=== PATIENT | female | born 1935 | race Caucasian/White ===

== ENCOUNTER 2016-04-07 20:39 | Inpatient (IN) ==
[2016-04-08] MEDS ORDERED: Pantoprazole 40 MG VIAL IVP STA (00:17)
[2016-04-08] MEDS ORDERED: Nitroglycerin 0.4 MG TAB.SUBL SL PRN (00:17)
[2016-04-08] MEDS ORDERED: *HR* Dextrose 50 % in Water (Syg) 50 ML SYRINGE IVP PRN (00:17)
[2016-04-08] MEDS ORDERED: Albuterol 2.5 MG/3 ML NEBULIZER IH PRN (00:17)
[2016-04-08] MEDS ORDERED: *HR* Metoprolol 5 MG/5 ML VIAL IVP PRN (00:17)
[2016-04-08] MEDS ORDERED: Ondansetron 4 MG/2 ML VIAL IVP PRN (00:17)
[2016-04-08] MEDS ORDERED: D5% in Water 1,000 ML IV PRN (00:17)
[2016-04-08] MEDS ORDERED: Acetaminophen 325 MG TABLET PO PRN (00:17)
[2016-04-08] MEDS ORDERED: *HR* OxyCODONE Immed Rel 5 MG TABLET PO PRN (00:17)
[2016-04-08] MEDS ORDERED: *HR* Morphine 2 MG/ML SYRINGE IVP PRN (00:17)
[2016-04-08] MEDS ORDERED: Naloxone 0.4 MG/ML INJ IVP PRN (00:17)
[2016-04-08] MEDS ORDERED: Dextrose Gel 15 GM PO PRN ×2 (00:17)
[2016-04-08] MEDS ORDERED: *HR* Enoxaparin 60 MG/0.6 ML SYRINGE SQ SCH (00:30)
--- NOTE | 2016-04-08 00:39 | Internal Med History&Physical ---
Date of Encounter: 04/07/16 Time of Encounter: 23:45 Assessment and Plan (1) Chest pain, rule out acute myocardial infarction Current visit: Yes Status: Acute . (2) Chest pain with moderate risk of acute coronary syndrome Current visit: Yes Status: Acute . (3) CAD (coronary artery disease), [place] coronary artery Current visit: Yes Status: Acute . Qualifiers: [place] vs. transplanted heart: [place] heart Associated angina: with unspecified angina Qualified Code(s): I25.119 - Atherosclerotic heart disease of [place] coronary artery with unspecified angina pectoris (4) Hx of CABG Current visit: Yes Status: Chronic . (5) History of PTCA Current visit: Yes Status: Chronic . (6) PAD (peripheral artery disease) Current visit: Yes Status: Chronic . (7) History of arterial bypass of lower extremity Current visit: Yes Status: Chronic . (8) Non-ST elevation myocardial infarction (NSTEMI) due to mismatch of myocardial oxygen supply and demand Current visit: Yes Status: Acute . (9) Obesity (BMI 30-39.9) Current visit: Yes Status: Chronic . (10) At risk for activity intolerance Current visit: Yes Status: Acute . (11) At risk for acute confusion Current visit: Yes Status: Acute . (12) At risk for acute ischemic cardiac event Current visit: Yes Status: Acute . Internal Medicine - H&P: HPI Chief complaint: Chest pain. Admitted From: Hospital to Hospital Transfer (Transfer from [facility]) Plans for Post Hospital Care: Home History of present illness: Ms. Cormier is a 81 year old female with medical history significant for CAD/ PTCAstents/CABG/AMIx3, PAD/LE PCI-stents/LE bilateral fem/pop bypass, hypertension, dyslipidemia, Polymyalgia Rheumatica, osteoarthritis, osteoporosis , RLS, chr MSK pain, GERD/dysphagia/esoph dysmotility, , type II DM, peripheral polyneuropathy, CKD III-IV/hydronephrosis, secondary hyperparathyroidism, H/O RCC s/p nephrectomy, anemia of chr dis, COPD/RAD, obesity, former smoker( 30pk- yrs). The patient was visited and interviewed and examined. Patient is received as a hospital to hospital transfer from [facility] to the [facility] indication with the reports of acute chest pain syndrome with findings suggestive of non-ST elevation myocardial infarction. Patient presented with chest pain of intermittent quality with associated dyspnea in the evening of admission. S pain was localized to the left posterior greater than left anterior chest with onset approximately 2 hours prior to emergency room presentation. Denied diaphoresis, syncopal or presyncopal complaints. Denied abdominal pain nausea vomiting and flank pain and neck pain or rash. he rated pain at the time of onset as a 9-10/severity. This gradually decreased leading up to her emergency room arrival at a 5-6/10 severity, retrosternal heaviness without radiation. Denied respiratory variation to symptoms. Onset occurred while at rest. However modest activity exacerbated chest pain. Denied any dietary medication or recreational indiscretions. The onset of symptoms was very reminiscent of prior history of acute myocardial infarctions. History is noteworthy for his atherosclerotic cardiovascular disease as well as family history for heart disease. She is a nonsmoker. She received 2 sublingual nitroglycerin in succession plus 324mg aspirin gradually resolving chest pain 0-1/10 severity. Patient declined additional sublingual nitroglycerin due to induced headache. Return of elevated troponin measure patient received therapeutic Lovenox injection prior to transfer. Findings in the ED: Temperature 98.2 pulse 54-65 BP 108-168/62-91. O2 saturation 93-98% room air. Troponin 0.06 and 0.08. CPK 36. CK-MB 2.1. WBC 9.9 hemoglobin 12.3 platelets 303,000. Differential normal. Metabolic panel chloride 98 glucose 167. BUN 29 creatinine 1.65. GFR 32. Hepatic function normal. Albumin 4.3 total 6.8. Portable chest x-ray demonstrated no active cardiopulmonary findings. Subsegmental atelectasis in the lung bases. No focal consolidation pleural effusion or pneumothorax. Significant atherosclerotic changes of the thoracic aorta. Vessels without obvious vascular congestion. EKG sinus rhythm. Premature Atrial complexes. Rate 60 bpm. Left axis deviation. Moderate voltage criteria for LVH. ST abnormalities inferior and lateral leads with T-wave inversion V3 to V4 V5 and V6. Rule out age-indeterminate inferior/ anterolateral wall ischemia. EKG of January 2016 demonstrates similar morphology but less severe ST and T wave acute abnormalities. Preliminary impression suggests acute chest pain syndrome with typical and atypical features in a patient with known significant vasculopathy and multiple major risk factors for CAD. Initial screening studies compatible with acute coronary syndrome, non-ST elevation myocardial infarction inpatient at increased risk for acute coronary event. Associated stage III acute on chronic kidney disease smallest electrolyte derangements noted. No obvious x-ray findings were acute pulmonary edema or infiltrate. Electrocardiogram suggests ischemia in the inferior and anterolateral ochoa. She presents risk for acute clinical decline immobility given his presenting symptoms complaints, clinical findings advanced age and comorbidities. Workup and treatment will progress comprehensively. Cumulative laboratory and radiographic data base was reviewed, considered and discussed. Pertinent ancillary medical records including ECW and PCI documentation was reviewed and considered. Given the patient's presenting concerns, past medical history, clinical findings and symptoms, she is admitted at this time will undergo further evaluation and disposition. Orders were written as per the computerized physician tape recorder repairer system.......................................................................... .................... Consultative opinions will be sought as clinical circumstances justify. Pain management needs will be addressed. Laboratory and radiographic data base will be updated as appropriate. Studies include: UA, PT,INR,APTT, Ddimer, CPK, cardiac injury panel, BNP, metabolic and hematologic panel, magnesium, phosphorus, ion calcium, thyroid panel, lipid profile, A1c, C-peptide, CRP sed rate, blood gas, lactic acid, serologies, etc. Precautions: Aspiration, fall, delirium protocol/surveillance initiated. Telemetry with continuous hemodynamic monitoring and pulse oximetry initiated. Orthostatic vital signs. Empiric antibiotic coverage: pending diagnostics/culture data. Special studies: CT chest, chest x-ray, telemetry, EKG, echocardiogram, US retroperitoneum. Pulmonary toilet: Incentive spirometry. Aerosol bronchodilator, mucolytic, antitussivePRN. Supplemental oxygen. Corticosteroid therapyPRN. CPAP/BiPAP supplemental oxygen deliveryPRN. Aerosol Mucomyst therapyPRN. Fluid and electrolyte repletion efforts will proceed. Careful attention to fluid balance and renal recovery will be emphasized. Avoidance of nephrotoxic exposure and adverse drug drug interaction in the setting of impaired renal function will be monitored closely. Acute coronary syndrome protocol/surveillance initiated. Including: Aspirin statin ARB beta anel. Nitrates PRN. Subcutaneous therapeutic Lovenox. Morphine PRN. DVT and PUD prophylaxis initiated: PPI therapy, intermittent pneumatic cuffs/ TEDs. Subq Lovenox. Early ambulation will be encouraged. Immunization updates recommended. Influenza and pneumococcal vaccinations as part of ongoing preventative healthcare recommendations strongly recommended. Smoking cessation counseling briefly addressed. Patient is a former smoker. Advanced care directive discussion briefly addressed. Patient does not declare any healthcare restrictions at this time. Cardiovascular risk appraisal and cardiovascular risk reduction efforts will be emphasized. Physical /occupational therapy may be considered to evaluate patient's functional capacity and progress mobility if her circumstances permit. Sliding scale insulin coverage, ADA dietary restraint and schedule an as-needed basis fingerstick glucose assessments were initiated. Nutrition/diabetes education counseling may be considered as circumstances justify. Outpatient medication schedules will be reviewed, confirmed and facilitated as appropriate. Reconciliation of home treatments including adjustments, substitutions and reintroduction into the treatment regimen will address necessary maintenance therapies for chronic pre-existing medical conditions. Plan of care has been reviewed and discussed in detail with the patient. Questions addressed. Hospital course dictated by clinical findings, treatment response and potential consultative interventions. Patient is at risk for further acute clinical decline and morbidity due to her advanced age, presenting chief complaints, findings and comorbid conditions. Condition is serious. Prognosis is guarded. CODE STATUS is full. Past Med Surg Social Fam HX - Past Medical History Source: old records reviewed Medical history: arthritis, asthma, cancer (History of renal cell carcinoma status post left nephrectomy-left adrenalectomy), COPD, coronary artery disease , diabetes, GERD, hyperlipidemia, hypertension, myocardial infarction (x3.), RA (Polymyalgia rheumatica), renal disease (CKD. Hydronephrosis.), TIA, venous stasis, other (Restless leg syndrome. Peripheral polyneuropathy.) Psychiatric history: no psych history - Past Surgical History Surgical History: angioplasty/stent, appendectomy, cancer surgery (Left nephrectomy-left adrenalectomy for renal cell carcinoma.), cholecystectomy, coronary bypass (CABG), herniorrhaphy (Hernia repair), hysterectomy, orthopedic , other (Back surgery.), GIBSON/BSO, other (Bladder suspension surgery.), vascular surgery, LE bypass (Bilateral femoral-popliteal bypass surgery.), LE stent (s), LE vascular intervention, arthroscopy - Social History Smoking Status: Former smoker (30 pack year smoking history abstinent times many years.) Alcohol use: none Drug use: none Occupational status: retired Current living situation: With Family Activity Level: Independent ambulation, Uses cane/walker, Mostly sedentary Recent Out of Country Travel Within the Last 8 Weeks: No Exposure or Possible Exposure to Illness During Travel: No - Family History Mother Living Status: Cause of : cancer Sister Cause of : cancer Internal Medicine - H&P: Meds Aspirin 81 mg PO DAILY 04/08/16 [History] Calcitriol 0.5 mcg PO DAILY 04/08/16 [History] Fluvastatin Sodium [Lescol] 40 mg PO HS 04/08/16 [History] Furosemide [Lasix] 20 mg PO DAILY 04/08/16 [History] Gabapentin [Neurontin] 100 mg PO BID 04/08/16 [History] Glimepiride [Amaryl] 1 mg PO QAM 04/08/16 [History] HYDROcodone/Acet 5/325 mg 5 - 325 mg PO BID 04/08/16 [History] Insulin Glargine,Hum.rec.anlog [Lantus Solostar] 20 units SQ DAILY 04/08/16 [ History] Losartan Potassium 25 mg PO DAILY 04/08/16 [History] Metoprolol Succinate 25 mg PO DAILY 04/08/16 [History] Nifedipine ER 60 mg PO DAILY 04/08/16 [History] PredniSONE [Prednisone] 5 mg PO DAILY 04/08/16 [History] Vitamin D3 500 unit PO DAILY 04/08/16 [History] Allergies lisinopril Allergy (Unverified 04/07/16 23:47) Diarrhea pioglitazone Allergy (Verified 04/07/16 23:48) See Comments LE edema All Systems PM: A 10-system review of systems was performed and is negative for pertinent findings except as documented above in the HPI. - Constitutional Constitutional: as per HPI, malaise, no chills, no fever(s), no night sweats - EENT Eyes: as per HPI, no change in vision, no discharge, no pain, no photophobia Ears: as per HPI, no ear discharge, no ear pain, no tinnitus Nose, mouth and throat: as per HPI, no dysphagia, no nasal discharge, no neck pain, no sore throat - Cardiovascular Cardiovascular ROS IM: as per HPI, chest pain, dyspnea, no diaphoresis, no edema , no lightheadedness, no palpitations, no syncope - Respiratory Respiratory: as per HPI, no cough, no dyspnea, no hemoptysis, no wheezing, no pain on inspiration, no chest congestion, no excessive phlegm production, no pain with cough - Gastrointestinal Gastrointestinal: as per HPI, no abdominal pain, no diarrhea, no hematemesis, no hematochezia, no melena, no nausea, no vomiting - Genitourinary Genitourinary: as per HPI, no change in urinary stream, no dysuria, no flank pain, no hematuria - Musculoskeletal Musculoskeletal ROS IM: as per HPI, no numbness, no tingling - Integumentary Integumentary IM: as per HPI, no rash, no unusual bruising - Neurological Neurological ROS: as per HPI, no confusion, no convulsions, no focal weakness, no numbness, no tingling, no tremor(s) - Psychiatric Psychiatric: as per HPI - Endocrine Endocrine IM: as per HPI - Hematologic/Lymphatic Hematologic/Lymphatic: as per HPI, no easy bruising - Allergic/Immunologic Allergic/Immunologic: as per HPI - Constitutional Vitals: Temp Pulse Resp BP Pulse Ox 97.8 F 52 20 175/78 98 04/07/16 22:55 04/07/16 22:55 04/07/16 22:55 04/07/16 22:55 04/07/16 22:55 General appearance: Present: cooperative, mild distress, A&O X 3, pleasant, obese, answers questions appropriately - Head Head exam: Present: atraumatic, normocephalic - Eye Eye exam: Present: EOMI, PERRL, conjuntiva pink, sclera anicteric Pupils: Present: normal accommodation, PERRL - ENT ENT exam: Present: mucous membranes moist, normal oropharynx - Neck Neck exam general surgery: Present: full ROM, supple, trachea midline. Absent: lymphadenopathy - Respiratory Respiratory exam: Present: decreased breath sounds, CTAB. Absent: accessory muscle use, rales, rhonchi, wheezes - Cardiovascular Cardiovascular exam: Present: distant heart sounds, RRR, +S1, +S2. Absent: diastolic murmur, gallop, rubs, systolic murmur - GI/Abdominal GI/Abdominal exam: Present: normal bowel sounds, soft, no peritoneal signs. Absent: distended, tenderness - Extremities Exam Extremities exam: Present: full ROM, warm, radial pulses palpable and symetrical. Absent: calf tenderness, cyanotic, pedal edema - Neurological Exam Neurological exam: Present: alert, CN II-XII intact, oriented X3, no focal deficits. Absent: pronater drift, facial droop, speech deficit - Psychiatric Psychiatric exam: Present: normal affect, normal mood - Skin Skin exam: Present: dry, intact, warm Internal Med - H&P Results - Labs CBC & Chem 7: 04/08/16 01:05 04/08/16 01:05 Labs: Vital Signs Temp Pulse Resp BP Pulse Ox 04/07/16 22:55 97.8 F 52 20 175/78 98 Intake and Output 04/07/16 04/07/16 04/08/16 15:59 23:59 07:59 Intake Total 0 / 0 Output Total 0 / 0 Balance 0 / 0 Intake: Oral 0 / 0 Output: Urine 0 / 0 Vital Signs Temp Pulse Resp BP Pulse Ox 04/07/16 22:55 97.8 F 52 20 175/78 98 Intake and Output 04/07/16 04/07/16 04/08/16 15:59 23:59 07:59 Intake Total 0 / 0 Output Total 0 / 0 Balance 0 / 0 Intake: Oral 0 / 0 Output: Urine 0 / 0 Other: Weight 69.6 kg Patient Weight 04/08/16 23:59 Weight 69.6 kg - Impressions Abnormal lab results RBC 3.79 M/mcL (3.82-4.97) L 04/08/16 01:05 Hct 34.3 % (35.3-44.9) L 04/08/16 01:05 D-Dimer 1114 ng/mLFEU (0-500) H 04/08/16 01:05 Potassium 3.4 mEq/L (3.5-4.5) L 04/08/16 01:05 BUN 27 mg/dL (7-20) H 04/08/16 01:05 Creatinine 1.54 mg/dL (0.57-1.11) H 04/08/16 01:05 Est GFR ( Amer) 39 (> 60) L 04/08/16 01:05 Est GFR (Non-Af Amer) 32 (> 60) L 04/08/16 01:05 Hemoglobin A1c 6.1 % (-5.6) H 04/08/16 01:05 Troponin I 0.14 ng/mL (0-0.03) H* 04/08/16 01:05 Albumin 3.4 g/dL (3.5-5.0) L 04/08/16 01:05 Triglycerides 223 mg/dL (< 150) H 04/08/16 01:05 Cholesterol 209 mg/dL (< 200) H 04/08/16 01:05 LDL Cholesterol, Calc 126 mg/dL (0-99) H 04/08/16 01:05 VLDL Cholesterol, Calc 45 mg/dL (< 31) H 04/08/16 01:05 HDL Cholesterol 38 mg/dL (40-59) L 04/08/16 01:05 Cholesterol/HDL Ratio 5.5 (0-4.9) H 04/08/16 01:05 Laboratory Results WBC 8.1 K/mcL (4.3-11.1) 04/08/16 01:05 RBC 3.79 M/mcL (3.82-4.97) L 04/08/16 01:05 Hgb 11.6 g/dL (11.5-15.4) 04/08/16 01:05 Hct 34.3 % (35.3-44.9) L 04/08/16 01:05 MCV 90.5 fL (83.0-100.0) 04/08/16 01:05 MCH 30.6 pg (28.0-33.3) 04/08/16 01:05 MCHC 33.8 g/dL (31.6-35.5) 04/08/16 01:05 RDW 13.7 % (11.5-14.5) 04/08/16 01:05 Plt Count 269 K/mcL (140-400) 04/08/16 01:05 MPV 9.6 fL (9.4-12.4) 04/08/16 01:05 Immature Gran % 0.5 % (0-4) 04/08/16 01:05 Seg Neutrophils % 51.0 % 04/08/16 01:05 Lymphocytes % 35.2 % 04/08/16 01:05 Monocytes % 11.1 % 04/08/16 01:05 Eosinophils % 1.7 % 04/08/16 01:05 Basophils % 0.5 % 04/08/16 01:05 Neutrophils # 4.2 K/mcL (1.6-8.9) 04/08/16 01:05 Lymphocytes # 2.9 K/mcL (0.6-4.6) 04/08/16 01:05 Monocytes # 0.9 K/mcL (0.0-1.3) 04/08/16 01:05 Eosinophils # 0.1 K/mcL (0.0-0.6) 04/08/16 01:05 Basophils # 0.0 K/mcL (0.0-0.2) 04/08/16 01:05 PT 11.7 Seconds (9.4-12.1) 04/08/16 01:05 INR 1.1 04/08/16 01:05 APTT 32.6 Seconds (26.0-36.0) 04/08/16 01:05 D-Dimer 1114 ng/mLFEU (0-500) H 04/08/16 01:05 VBG Ionized Calcium 1.29 mmol/L (1.15-1.35) 04/08/16 01:05 Sodium 140 mEq/L (136-145) 04/08/16 01:05 Potassium 3.4 mEq/L (3.5-4.5) L 04/08/16 01:05 Chloride 105 mEq/L (98-109) 04/08/16 01:05 Carbon Dioxide 24 mEq/L (19-29) 04/08/16 01:05 BUN 27 mg/dL (7-20) H 04/08/16 01:05 Creatinine 1.54 mg/dL (0.57-1.11) H 04/08/16 01:05 Est GFR ( Amer) 39 (> 60) L 04/08/16 01:05 Est GFR (Non-Af Amer) 32 (> 60) L 04/08/16 01:05 BUN/Creatinine Ratio 18 (6-26) 04/08/16 01:05 Glucose 86 mg/dL (70-99) 04/08/16 01:05 Est Mean Plasma Glucose 128 mg/dl 04/08/16 01:05 Hemoglobin A1c 6.1 % (-5.6) H 04/08/16 01:05 Calculated Osmolality 294 (280-300) 04/08/16 01:05 Calcium 10.1 mg/dL (8.6-10.8) 04/08/16 01:05 Phosphorus 2.5 mg/dL (2.3-4.7) 04/08/16 01:05 Magnesium 1.8 mg/dL (1.6-2.6) 04/08/16 01:05 Total Bilirubin 0.5 mg/dL (0.2-1.2) 04/08/16 01:05 AST 12 Units/L (5-34) 04/08/16 01:05 ALT 10 Units/L (0-55) 04/08/16 01:05 Alkaline Phosphatase 51 Units/L (38-126) 04/08/16 01:05 Troponin I 0.14 ng/mL (0-0.03) H* 04/08/16 01:05 C-Reactive Protein 3 mg/L (Less than 5) 04/08/16 01:05 B-Natriuretic Peptide 73 pg/mL (0-100) 04/08/16 01:05 Serum Total Protein 6.4 g/dL (6.0-8.3) 04/08/16 01:05 Albumin 3.4 g/dL (3.5-5.0) L 04/08/16 01:05 Globulin 3.0 g/dL (2.4-3.5) 04/08/16 01:05 Albumin/Globulin Ratio 1.1 (1.1-2.2) 04/08/16 01:05 Triglycerides 223 mg/dL (< 150) H 04/08/16 01:05 Cholesterol 209 mg/dL (< 200) H 04/08/16 01:05 LDL Cholesterol, Calc 126 mg/dL (0-99) H 04/08/16 01:05 VLDL Cholesterol, Calc 45 mg/dL (< 31) H 04/08/16 01:05 HDL Cholesterol 38 mg/dL (40-59) L 04/08/16 01:05 Cholesterol/HDL Ratio 5.5 (0-4.9) H 04/08/16 01:05 Amylase 60 Units/L (25-125) 04/08/16 01:05 Lipase 55 Units/L (8-78) 04/08/16 01:05 TSH 2.195 mcIU/mL (0.350-4.840) 04/08/16 01:05 Blood Type A NEGATIVE 04/08/16 01:05 Antibody Screen NEGATIVE 04/08/16 01:05
[2016-04-08] MEDS: 0.9 % Sodium Chloride 500 ML IVC SCH ×2 (01:43→21:14)
[2016-04-08 01:48] LABS: Basophils % 0.5 %; Eosinophils # 0.1 K/mcL (0.0-0.6); Eosinophils % 1.7 %; Hematocrit 34.3 % (35.3-44.9); Hemoglobin 11.6 g/dL (11.5-15.4); INR 1.1; Immature Granulocytes % 0.5 % (0-4); Lymphocytes # 2.9 K/mcL (0.6-4.6); Lymphocytes % 35.2 %; Mean Corpuscular HGB Conc 33.8 g/dL (31.6-35.5); Mean Corpuscular Hemoglobin 30.6 pg (28.0-33.3); Mean Corpuscular Volume 90.5 fL (83.0-100.0); Mean Platelet Volume 9.6 fL (9.4-12.4); Monocytes # 0.9 K/mcL (0.0-1.3); Monocytes % 11.1 %; Neutrophils # 4.2 K/mcL (1.6-8.9); Platelet Count 269 K/mcL (140-400); Prothrombin Time 11.7 Seconds (9.4-12.1); Red Blood Count 3.79 M/mcL (3.82-4.97); Red Cell Distribution Width 13.7 % (11.5-14.5)
[2016-04-08 01:50] LABS: Activated Partial Thrombo Time 32.6 Seconds (26.0-36.0)
[2016-04-08 01:57] LABS: Hemoglobin A1C 6.1 %
[2016-04-08 01:59] LABS: Albumin 3.4 g/dL (3.5-5.0); Albumin/Globulin Ratio 1.1 (1.1-2.2); Bilirubin,Total 0.5 mg/dL (0.2-1.2); Calcium 10.1 mg/dL (8.6-10.8); Chol/HDL Ratio 5.5 (0-4.9); Magnesium 1.8 mg/dL (1.6-2.6); Phosphorous 2.5 mg/dL (2.3-4.7); Potassium 3.4 mEq/L (3.5-4.5); Total Protein 6.4 g/dL (6.0-8.3)
[2016-04-08 02:57] LABS: Thyroid Stimulating Hormone 2.195 mcIU/mL (0.350-4.840)
[2016-04-08 04:39] LABS: Bilirubin,Urine Negative (Negative); Blood,Urine Negative (Negative); Clarity,Urine Clear (Clear); Color,Urine Yellow (Yellow); Glucose,Urine (UA) Normal (Normal); Ketones,Urine Negative (Negative); Leukocyte Esterase,Urine Trace (Negative); Nitrite,Urine Negative (Negative); Protein,Urine Negative (Neg-Trace); Specific Gravity,Urine 1.015 (1.010-1.025); Urobilinogen,Urine Normal (Normal)
[2016-04-08 04:42] LABS: Bacteria,Urine None Seen per hpf (None-Few); Hyaline Casts,Urine None Seen per lpf (None-Few); RBC,Urine 0-3 per hpf (0-3); Squamous Epithelial Cell,Urine Many per lpf (None-Few)
[2016-04-08] MEDS: Ipratropium/Albuterol Neb 3 ML IH SCH ×3 (04:43→15:59)
[2016-04-08] MEDS: Insulin LISPRO 300 UNITS/3 ML VIAL SQ SCH ×3 (05:34→17:25)
[2016-04-08] MEDS: Furosemide 20 MG TABLET PO SCH (08:24)
[2016-04-08] MEDS: Gabapentin 100 MG CAPSULE PO SCH ×2 (08:24→21:17)
[2016-04-08] MEDS: NIFEdipine XL (24 HR) 60 MG TAB.ER.24 PO SCH (08:25)
--- NOTE | 2016-04-08 08:43 | Internal Med Progress Note ---
<Ravin Funes - Last Filed: 04/08/16 09:07> Date of Encounter: 04/08/16 Time of Encounter: 08:15 - Assessment and plan (1) NSTEMI (non-ST elevated myocardial infarction) Current Visit: Yes Status: Acute Assessment and plan: Patient has extensive history of cardiac disease including: PTCA with stent, CABG, AMIx3. Patient came in with Left anterior chest pain. MARCELINO score is 7: high risk of all cause mortality. EKG showed T wave inversions. Patient has elevated triglycerides, LDL, total cholesterol. TSH normal. ASA, Simvastatin, Metoprolol. Morphine for pain control. CUrrently NPO Lovenox. consult to cardiology (2) CAD (coronary artery disease), [place] coronary artery Current Visit: Yes Status: Acute Assessment and plan: Plan as above. Qualifiers: [place] vs. transplanted heart: [place] heart Associated angina: with unspecified angina Qualified Code(s): I25.119 - Atherosclerotic heart disease of [place] coronary artery with unspecified angina pectoris (3) HTN (hypertension) Current Visit: Yes Status: Acute Assessment and plan: BP today 162/79. Continue home meds Losartan, Nifedipine. Qualifiers: Hypertension type: essential hypertension Qualified Code(s): I10 - Essential (primary) hypertension (4) PAD (peripheral artery disease) Current Visit: Yes Status: Chronic Assessment and plan: S/P LE PCI/stent, Bilateral fem/pop bypass Peripheral pulses on lower extremities diminished but extremities are warm. Continue to monitor. (5) COPD (chronic obstructive pulmonary disease) Current Visit: Yes Status: Acute Assessment and plan: Continue with DuoNebs Qualifiers: COPD type: unspecified COPD Qualified Code(s): J44.9 - Chronic obstructive pulmonary disease, unspecified (6) Diabetes Current Visit: Yes Status: Acute Assessment and plan: Good glycemic control at this time. Patient is currently NPO. COntinue Q6HR accuchecks with low dose sliding scale insulin. Qualifiers: Diabetes mellitus type: type 2 Diabetes mellitus complication status: with unspecified complications Diabetes mellitus usp insulin use: unspecified intermediate project manager insulin use status Qualified Code(s): E11.8 - Type 2 diabetes mellitus with unspecified complications (7) CKD (chronic kidney disease) Current Visit: Yes Status: Acute Assessment and plan: Patient has recorded history of CKD stage 4. Cr today was 1.54, baseline around 1.3. Continue to monitor. Avoid nephrotoxic agents. Qualifiers: Chronic kidney disease stage: stage 4 (severe) Qualified Code(s): N18.4 - Chronic kidney disease, stage 4 (severe) (8) Peripheral polyneuropathy Current Visit: Yes Status: Acute Assessment and plan: By history. Continue with home med Gabapentin. (9) DVT prophylaxis Current Visit: Yes Status: Acute Assessment and plan: Continue with full dose lovenox. - Subjective Interval history: 81 year old female evaluated at bedside. Patient denies nausea, vomiting, diarrhea, fever. she reports some chills. she denies shortness of breath, dizziness, or lightheadedness. She complains of no chest pain this morning. - Constitutional Vitals: Temp Pulse Resp BP Pulse Ox 97.6 F 50 14 162/91 97 04/08/16 08:10 04/08/16 08:10 04/08/16 08:10 04/08/16 08:10 04/08/16 08:10 General appearance: Present: cooperative, mild distress, A&O X 3, pleasant, obese, answers questions appropriately - Head Head exam: Present: atraumatic, normocephalic - ENT ENT exam: Present: mucous membranes moist - Neck Neck exam general surgery: Present: supple, trachea midline - Respiratory Respiratory exam: Present: CTAB - Cardiovascular Cardiovascular exam: Present: RRR, +S1, +S2 - GI/Abdominal GI/Abdominal exam: Present: normal bowel sounds, soft. Absent: guarding, tenderness - Extremities Exam Extremities exam: Absent: cyanotic, pedal edema Additional comments: pulses diminished on lower extremities bilaterally. normal capillary refill. Patient has severe pain bilaterally from polyneuropathy. She has bruising present on all four extremities. - Neurological Exam Neurological exam: Present: alert, oriented X3 Additional comments: essential tremor present. - Skin Additional comments: bruising present on all four extremities. Internal Medicine: Result - Labs CBC & Chem 7: 04/08/16 01:05 04/08/16 01:05 Labs: Short CBC 04/08/16 Range/Units 01:05 WBC 8.1 (4.3-11.1) K/mcL Hgb 11.6 (11.5-15.4) g/dL Hct 34.3 L (35.3-44.9) % Plt Count 269 (140-400) K/mcL Neutrophils # 4.2 (1.6-8.9) K/mcL BMP 04/08/16 01:05 Sodium 140 Potassium 3.4 L Chloride 105 Carbon Dioxide 24 BUN 27 H Creatinine 1.54 H Glucose 86 Calcium 10.1 Cardiac Enzymes 04/08/16 04/08/16 Range/Units 01:05 06:03 Troponin I 0.14 H* 0.14 H* (0-0.03) ng/mL Liver Function 04/08/16 Range/Units 01:05 Total Bilirubin 0.5 (0.2-1.2) mg/dL AST 12 (5-34) Units/L ALT 10 (0-55) Units/L Alkaline Phosphatase 51 (38-126) Units/L Albumin 3.4 L (3.5-5.0) g/dL Urine 04/08/16 Range/Units 04:25 Urine Color Yellow (Yellow) Urine Clarity Clear (Clear) Urine pH 7.0 (5.0-8.0) pH Units Ur Specific [place] 1.015 (1.010-1.025) Urine Protein Negative (Neg-Trace) mg/dL Urine Glucose (UA) Normal (Normal) mg/dL - ABG Interpretation ABG results: PT/INR, D-dimer PT 11.7 Seconds (9.4-12.1) 04/08/16 01:05 D-Dimer 1114 ng/mLFEU (0-500) H 04/08/16 01:05 Consult Discharge Plan - Plan Referrals: Rose Lira, SYSTEM SUPPORT SPECIALIST [Advanced Practice Nurse] - 04/16/16 2:00 pm (Please follow up as schedule...) <Arturo Buckner H - Last Filed: 04/08/16 09:55> Date of Encounter: 04/08/16 - Constitutional Vitals: Temp Pulse Resp BP Pulse Ox 97.6 F 50 14 162/91 97 04/08/16 08:10 04/08/16 08:10 04/08/16 08:10 04/08/16 08:10 04/08/16 08:10 Internal Medicine: Result - Labs CBC & Chem 7: 04/08/16 01:05 04/08/16 01:05 Labs: Short CBC 04/08/16 Range/Units 01:05 WBC 8.1 (4.3-11.1) K/mcL Hgb 11.6 (11.5-15.4) g/dL Hct 34.3 L (35.3-44.9) % Plt Count 269 (140-400) K/mcL Neutrophils # 4.2 (1.6-8.9) K/mcL BMP 04/08/16 01:05 Sodium 140 Potassium 3.4 L Chloride 105 Carbon Dioxide 24 BUN 27 H Creatinine 1.54 H Glucose 86 Calcium 10.1 Cardiac Enzymes 04/08/16 04/08/16 Range/Units 01:05 06:03 Troponin I 0.14 H* 0.14 H* (0-0.03) ng/mL Liver Function 04/08/16 Range/Units 01:05 Total Bilirubin 0.5 (0.2-1.2) mg/dL AST 12 (5-34) Units/L ALT 10 (0-55) Units/L Alkaline Phosphatase 51 (38-126) Units/L Albumin 3.4 L (3.5-5.0) g/dL Urine 04/08/16 Range/Units 04:25 Urine Color Yellow (Yellow) Urine Clarity Clear (Clear) Urine pH 7.0 (5.0-8.0) pH Units Ur Specific [place] 1.015 (1.010-1.025) Urine Protein Negative (Neg-Trace) mg/dL Urine Glucose (UA) Normal (Normal) mg/dL - ABG Interpretation ABG results: PT/INR, D-dimer PT 11.7 Seconds (9.4-12.1) 04/08/16 01:05 D-Dimer 1114 ng/mLFEU (0-500) H 04/08/16 01:05 - Impressions Impressions Retroperitoneum Ultrasound 04/08/16 08:30 IMPRESSION: 1. Patient is status post left-sided nephrectomy. 2. No acute sonographic abnormality seen of the right kidney. 3. Right renal cysts. 4. Unremarkable sonographic appearance of the urinary bladder. D/ / Gerardo Rich MD / Gerardo Rich MD Interpreting Provider: Gerardo Rich MD - Attending Attestation NSTEMI, lovenox ASA, cardiology consult monitor trops PMR : increase prednisone from 5 to 15 mg daily I examined this patient and my medical decision-making was reviewed with the PHARMACY CONSULTANT/PA/Advanced Practice Nurse/Resident Physician. I agree with the documented findings, disposition and treatment plan as described except to the extent set forth below.
[2016-04-08] MEDS ORDERED: Aspirin 81 MG TAB.CHEW PO SCH (09:00)
[2016-04-08] MEDS ORDERED: Metoprolol XL (24 HR) Succ 25 MG TAB.ER.24H PO SCH ×2 (09:00→10:02)
[2016-04-08] MEDS ORDERED: predniSONE 5 MG TABLET PO SCH ×2 (09:00→09:53)
[2016-04-08] MEDS ORDERED: Famotidine 20 MG TABLET PO SCH (09:00)
[2016-04-08] MEDS: *HR* Enoxaparin 80 MG/0.8 ML SYRINGE SQ SCH (12:35)
--- NOTE | 2016-04-08 14:59 | ECHO - Doppler Report ---
Echocardiogram Name: Elsie Cormier Date of Study: 04/08/2016 Date: 1935 Ht: 60.0 in Medical Record#: [id number] Age: 81 Wt: 153.0 lb Gender: Female BSA: 1.67 Order #: [id number] Location: [facility] Room #: 2A26 Reading Physician: Bjorn Gallardo MD, [facility] Curber: Lamberto Mayberry RN Ordering Physician: Conner Boogie MD Primary Physician: None Indications: Chest pain Impressions: Normal left ventricular systolic function, LVEF 65-70%. Mild concentric left ventricular hypertrophy. Mild left ventricular diastolic dysfunction. Normal right ventricular size and function. Mildly dilated left atrium. No significant valvular dysfunction. No evidence of pulmonary hypertension. Left Ventricular Wall Motion: Rest Echo Findings All wall segments showed normal motion. Findings: Study Quality * Technically adequate exam. ECG Findings * Normal sinus rhythm. Left Ventricle * Normal left ventricular systolic function, LVEF 65-70%. * Normal LV chamber size. * Mild concentric left ventricular hypertrophy. * Mild left ventricular diastolic dysfunction. Right Ventricle * Normal right ventricular size and function. Left Atrium * Mildly dilated left atrium. Right Atrium * Normal right atrial size. Aorta * Normally sized aortic root. Pericardium * There is a trivial pericardial effusion present. IVC * Normal IVC dimensions and inspiratory collapse. Aortic Valve * Trileaflet aortic valve. * Mildly sclerotic aortic valve leaflets. * No aortic stenosis. * Trace aortic regurgitation. Mitral Valve * Mild mitral annular calcification * No mitral stenosis. * Trace mitral regurgitation. Tricuspid Valve * Normal tricuspid valve structure. * No tricuspid stenosis. * Trace tricuspid regurgitation. * No evidence of pulmonary hypertension. Pulmonic Valve * Pulmonic valve not well visualized. * No pulmonic stenosis. * Trace pulmonic regurgitation. History Hypertension Diabetes Hypercholesteremia Years 15 Packs 0.5 Family History of CAD History of CAD/PTCA Myocardial Infarction 12/09/2009 a Previous Echo was performed. Measurements: BP: 124/ 80 2D Normal Values RVIDd: 3.20 cm IVSd: 1.20 cm 0.6 - 1.0 cm LVIDd: 4.00 cm 3.7 - 5.6 cm LVPWd: 1.20 cm 0.6 - 1.1 cm LVIDs: 2.50 cm 1.5 - 3.6 cm AO: 2.90 cm < 4.0 cm %FS: 37.50 cm >25 % LA volume: 56 Mitral Valve Peak E:.63 m/sec Peak A:1.29 m/sec E/A Ratio:0.5 Tricuspid Valve TV Regurg Peak Grad: 23.00mmHg TV Regurg Peak Hoa: 2.39m/sec Updated by Bjorn Gallardo MD, [facility] on 04/08/2016 2:52:40 PM electronically signed on 04/08/2016 2:53:12 PM with status of Final Wall Motion [place]: 1=Normal, 2=Hypokinesis, 3=Akinesis, 4=Dyskinesis, 5=Aneurysmal, 6=Hyperkinetic, X=Not Visualized (Blank)=Missing
--- NOTE | 2016-04-08 16:39 | Cardiology Consult Note ---
Date of Encounter: 04/08/16 Time of Encounter: 13:30 Assessment and Plan (1) Chest pain, rule out acute myocardial infarction Current Visit: Yes Status: Acute Per Cardiology: Atypical CP. Troponins mildly elevated at 0.06 and 0.14 x 2. Reports had mild troponin elevation recently at [facility]. We'll attempt to obtain medical records. Suspect demand ischemia in the setting of COPD and CKD stage 4. No cardiac rehabilitation consult warranted at this time. Current echo shows EF preserved at 65-70%, no significant valvular dysfunction, no pulmonary hypertension, no segment wall motion abnormalities. A lengthy discussion with patient and family regarding potential further ischemic evaluation in terms of left heart catheterization. Patient with history of left nephrectomy and has CK D stage IV. Will review medical records from outside facility but this point patient and family agreeable to conservative medical management. (2) CAD (coronary artery disease), [place] coronary artery Current Visit: Yes Status: Acute Per Cardiology: History CAD with last heart catheterization 2009. At that time had proximal mid RCA 30-40% in-stent restenosis and proximal mid circumflex 30-40% stenosis, otherwise normal coronary angiogram. On aspirin, statin, beta anel, ARB. Qualifiers: [place] vs. transplanted heart: [place] heart Associated angina: with unspecified angina Qualified Code(s): I25.119 - Atherosclerotic heart disease of [place] coronary artery with unspecified angina pectoris (3) CKD (chronic kidney disease) Current Visit: Yes Status: Chronic Per Cardiology: Follow-up with [place] [facility]. Again history of left nephrectomy due to renal carcinoma and currently has CKD stage IV. Kidney function remains about baseline. Monitor closely on ARB and Lasix. Qualifiers: Chronic kidney disease stage: stage 4 (severe) Qualified Code(s): N18.4 - Chronic kidney disease, stage 4 (severe) (4) Elevated d-dimer Current Visit: Yes Status: Acute Per Cardiology: Dimer elevated to 1100s. Echocardiogram showed no evidence of RV strain with normal structure and function. Patient clinically stable. Suspect low likelihood PE. Consider VQ scan if deemed clinically appropriate with history of CKD. Again awaiting records from outside facility. Discussion w patient/family: The assessment and plan as outlined above was discussed with the patient and/or family members who expressed understanding and agreement. All questions were answered. Thank you for involving us in the care of your patient. Please call with any questions. Discussed and reviewed Dr. Mariee. History of Present Illness Consult date: 04/08/16 Requesting physician: Arturo Buckner Consult reason: Elevated Troponin Chief complaint: CP History of present illness: Ms. Cormier is a 81 year old female with a relevant past medical history diabetes mellitus type 2, CK D stage IV with history of left nephrectomy due to renal carcinoma in 2002, hypertension, CAD, PVD, hyperlipidemia, polymyalgia rheumatica, past history nicotine abuse, COPD. Patient seen with family. They indicate patient with chronic chest pain and right arm pain, however worsened in frequency lately. She reports symptoms mainly occur at rest. Right arm and shoulder pain worse with palpation. Daughter reports pain appears to be worsened with COPD exacerbations and during emotional stress. She reports fatigue, short of breath at rest and with exertion remains about baseline. Reports had recent hospitalization at [facility] in January 2016 for mild troponin elevations and concern for possible PE. The report at that time cardiology workup essentially negative and no evidence of PE. Last heart catheterization in 2009. Past Med Surg Social Fam HX - Past Medical History Attestation: Yes The following information was validated with the patient. Source: patient, old records reviewed, obtained from family Medical history: arthritis, asthma, cancer (History of renal cell carcinoma status post left nephrectomy-left adrenalectomy), COPD, coronary artery disease , diabetes, GERD, hyperlipidemia, hypertension, myocardial infarction (x3.), RA (Polymyalgia rheumatica), renal disease (CKD. Hydronephrosis.), TIA, venous stasis, other (Restless leg syndrome. Peripheral polyneuropathy.) Psychiatric history: no psych history - Past Surgical History Surgical History: angioplasty/stent, appendectomy, cancer surgery (Left nephrectomy-left adrenalectomy for renal cell carcinoma.), cholecystectomy, coronary bypass (CABG), herniorrhaphy (Hernia repair), hysterectomy, orthopedic , other (Back surgery.), GIBSON/BSO, other (Bladder suspension surgery.), vascular surgery, LE bypass (Bilateral femoral-popliteal bypass surgery.), LE stent (s), LE vascular intervention, arthroscopy - Social History Smoking Status: Former smoker (30 pack year smoking history abstinent times many years.) Alcohol use: none Drug use: none - Family History Mother Living Status: Cause of : cancer Sister Cause of : cancer Medications and Allergies Aspirin 81 mg PO DAILY 04/08/16 [History] Calcitriol 0.5 mcg PO DAILY 04/08/16 [History] Cholecalciferol (Vitamin D3) [Vitamin D] 1,000 unit PO DAILY 04/08/16 [History] Fluvastatin Sodium [Lescol] 40 mg PO HS 04/08/16 [History] Furosemide [Lasix] 20 mg PO DAILY 04/08/16 [History] Gabapentin [Neurontin] 100 mg PO BID 04/08/16 [History] Insulin DETEMIR [Levemir Flextouch] 20 unit SQ QAM 04/08/16 [History] Metoprolol XL (24 HR) Succ [Toprol XL] 25 mg PO DAILY 04/08/16 [History] NIFEdipine [Nifedipine ER] 60 mg PO DAILY 04/08/16 [History] PredniSONE [Prednisone] 5 mg PO DAILY 04/08/16 [History] Allergies lisinopril Allergy (Verified 04/08/16 08:30) Diarrhea pioglitazone Allergy (Verified 04/08/16 08:30) See Comments LE edema All Systems Review: A 10-system review of systems was performed and is negative for pertinent findings except as documented above in the HPI. - Constitutional Constitutional: fatigue - Cardiovascular Cardiovascular: as per HPI, chest pain at rest, chest pain with exertion, dyspnea at rest, dyspnea on exertion Physical Examination Vital Signs, Last 4 Hours Temp Pulse Resp BP Pulse Ox 04/08/16 15:59 14 92 L 04/08/16 15:54 97.8 F 56 14 144/78 92 L General: Conversant, No Apparent Distress HEENT: Atraumatic, Normocephaly, Mucus Membranes Moist Neck: No JVD, Normal carotid pulses Cardiac: Reg Rate and Rhythm, Normal S1 and S2, No Murmur Lungs: Other (Slightly diminished bases bilaterally) Neuro: Alert and responsive, No focal deficits noted Abdomen: Soft, Non-Tender Skin: No rashes noted on visualized skin Musculoskeletal: Other (Chest discomfort to right chest reproducible upon exam today) Extremities: No Edema, Normal Pulses Results 04/08/16 01:05 04/08/16 01:05 Lab Results Laboratory Tests 04/08/16 04/08/16 04/08/16 01:05 01:05 01:05 INR 1.1 D-Dimer 1114 H Potassium 3.4 L Creatinine 1.54 H Est GFR (Non-Af Amer) 32 L Troponin I 0.14 H* 04/08/16 06:03 INR D-Dimer Potassium Creatinine Est GFR (Non-Af Amer) Troponin I 0.14 H* ITS Impressions Retroperitoneum Ultrasound 04/08/16 08:30 IMPRESSION: 1. Patient is status post left-sided nephrectomy. 2. No acute sonographic abnormality seen of the right kidney. 3. Right renal cysts. 4. Unremarkable sonographic appearance of the urinary bladder. D/ / Gerardo Rich MD / Gerardo Rich MD Interpreting Provider: Gerardo Rich MD Active Medications Acetaminophen (Tylenol) 650 mg PO Q6HR PRN PRN Reason: Mild Pain (1-3) Stop: 10/08/16 00:18 Albuterol Sulfate (Proventil Neb) 2.5 mg IH Q2H PRN PRN Reason: Shortness Of Breath/Wheezing Stop: 10/08/16 00:18 Albuterol/Ipratropium (Duoneb) 3 ml IH QIDR [facility] Stop: 10/08/16 05:01 Last Admin: 04/08/16 15:59 Dose: 3 ml Aspirin (Aspirin Ec) 81 mg PO DAILY [facility] Stop: 10/09/16 09:01 Dextrose/Water (Dextrose 50% (Syg)) 25 ml IVP AD PRN PRN Reason: Hypoglycemia Stop: 10/08/16 00:18 Docusate Sodium (Colace) 100 mg PO BID [facility] Stop: 10/08/16 09:01 Last Admin: 04/08/16 08:24 Dose: Not Given Enoxaparin Sodium (Lovenox) 70 mg 1 mg/kg (70 mg) SQ Q24H FUAD PRN Reason: Protocol Stop: 10/08/16 10:01 Last Admin: 04/08/16 12:35 Dose: 70 mg Famotidine (Pepcid) 20 mg PO DAILY FUAD PRN Reason: Protocol Stop: 10/09/16 09:01 Furosemide (Lasix) 20 mg PO DAILY [facility] Stop: 10/08/16 09:01 Last Admin: 04/08/16 08:24 Dose: 20 mg Gabapentin (Neurontin) 100 mg PO BID [facility] Stop: 10/08/16 09:01 Last Admin: 04/08/16 08:24 Dose: 100 mg Glucagon (Glucagen) 1 mg IM ONCE PRN PRN Reason: Hypoglycemia Stop: 10/08/16 00:18 Glucose (Gluctose) 15 gm PO ONCE PRN PRN Reason: Hypoglycemia Stop: 10/08/16 00:18 Glucose (Gluctose) 30 gm PO ONCE PRN PRN Reason: Hypoglycemia Stop: 10/08/16 00:18 Sodium Chloride (0.9 % Sodium Chloride) 500 mls @ 25 mls/hr IVC .Q20H [facility] Stop: 10/08/16 00:31 Last Admin: 04/08/16 01:43 Dose: 25 mls/hr Dextrose (Dextrose 5%) 1,000 mls @ 100 mls/hr IV CONT PRN PRN Reason: HYPOGLYCEMIA Stop: 10/08/16 00:18 Insulin Human Lispro (Humalog) 0 units SQ HS [facility] PRN Reason: Protocol Stop: 10/08/16 21:01 Insulin Human Lispro (Humalog) 0 units SQ TIDAC [facility] PRN Reason: Protocol Stop: 10/08/16 16:31 Losartan Potassium (Cozaar) 25 mg PO DAILY [facility] Stop: 10/08/16 09:01 Last Admin: 04/08/16 08:24 Dose: 25 mg Metoprolol Succinate (Toprol Xl) 25 mg PO DAILY [facility] Stop: 10/08/16 09:01 Metoprolol Tartrate (Lopressor) 5 mg IVP Q6HR PRN PRN Reason: SEE COMMENTS Stop: 10/08/16 00:18 Last Admin: 04/08/16 01:43 Dose: 5 mg Morphine Sulfate (Morphine Sulfate) 2 mg IVP Q2H PRN PRN Reason: Severe Pain (7-10) Stop: 10/08/16 00:18 Naloxone HCl (Narcan) 0.4 mg IVP Q2MIN PRN PRN Reason: Opioid Reversal Stop: 10/08/16 00:18 Nifedipine (Procardia Xl) 60 mg PO DAILY [facility] Stop: 10/08/16 09:01 Last Admin: 04/08/16 08:25 Dose: 60 mg Nitroglycerin (Nitroglycerin) 0.4 mg SL Q5MIN PRN PRN Reason: Chest Pain Stop: 10/08/16 00:18 Ondansetron HCl (Zofran) 4 mg IVP Q8HR PRN PRN Reason: Nausea And Vomiting Stop: 10/08/16 00:18 Oxycodone HCl (Roxicodone) 5 mg PO Q6HR PRN PRN Reason: Moderate Pain (4-6) Stop: 10/08/16 00:18 Prednisone (Prednisone) 15 mg PO DAILY FUAD Stop: 10/08/16 09:01 Simvastatin (Zocor) 20 mg PO HS FUAD Stop: 10/08/16 21:01 - Imaging and Cardiology Echo: report reviewed - EKG Interpretation EKG results cardiology: personally reviewed (ECG shows sinus rhythm with flipped T waves in V4 through V6) Consult Discharge Plan - Plan Referrals: Rose Lira RADIOGRAPHER ANGIOGRAM [Advanced Practice Nurse] - 04/16/16 2:00 pm (Please follow up as schedule...)
[2016-04-08] MEDS ORDERED: Ipratropium/Albuterol Neb 3 ML IH PRN (16:53)
[2016-04-08] MEDS ORDERED: Insulin LISPRO 300 UNITS/3 ML VIAL SQ SCH (21:00)
[2016-04-09] MEDS: Furosemide 20 MG TABLET PO SCH (07:42)
[2016-04-09] MEDS: Gabapentin 100 MG CAPSULE PO SCH (07:42)
[2016-04-09] MEDS: NIFEdipine XL (24 HR) 60 MG TAB.ER.24 PO SCH (07:42)
[2016-04-09] MEDS: Insulin LISPRO 300 UNITS/3 ML VIAL SQ SCH ×2 (08:04→11:40)
--- NOTE | 2016-04-09 08:05 | Cardiology Progress Note ---
Date of Encounter: 04/09/16 Time of Encounter: 08:00 Assessment and Plan (1) Chest pain, rule out acute myocardial infarction Current Visit: Yes Status: Acute Per Cardiology: Atypical CP. Troponins mildly elevated at 0.06, 0.14 x 2, and 0.12. Reports had mild troponin elevation recently at [place]. We'll attempt to obtain medical records-- no records received to date. Suspect demand ischemia in the setting of COPD and CKD stage 4. Current echo shows EF preserved at 65-70%, no significant valvular dysfunction, no pulmonary hypertension, no segment wall motion abnormalities. No further ischemic evaluation warranted to this time. Patient agreeable. Cardiology will sign off, reconsult as needed, follow-up in outpatient setting-- appointment arranged. Discussed with Hospitalist team. (2) CAD (coronary artery disease), [place] coronary artery Current Visit: Yes Status: Chronic Per Cardiology: History CAD with last heart catheterization 2009. At that time had proximal mid RCA 30-40% in-stent restenosis and proximal mid circumflex 30-40% stenosis, otherwise normal coronary angiogram. On aspirin, statin, beta anel, ARB. Qualifiers: [place] vs. transplanted heart: [place] heart Associated angina: with unspecified angina Qualified Code(s): I25.119 - Atherosclerotic heart disease of [place] coronary artery with unspecified angina pectoris (3) CKD (chronic kidney disease) Current Visit: Yes Status: Chronic Per Cardiology: Follows-up with [facility]. Again history of left nephrectomy due to renal carcinoma and currently has CKD stage IV. Kidney function remains about baseline. Monitor closely on ARB and Lasix. Qualifiers: Chronic kidney disease stage: stage 4 (severe) Qualified Code(s): N18.4 - Chronic kidney disease, stage 4 (severe) (4) Elevated d-dimer Current Visit: Yes Status: Acute Per Cardiology: Dimer elevated to 1100s. Echocardiogram showed no evidence of RV strain with normal structure and function. Patient clinically stable. Suspect low likelihood PE. Consider VQ scan if deemed clinically appropriate with history of CKD. Again awaiting records from outside facility. Discussion w patient/family: The assessment and plan as outlined above was discussed with the patient and/or family members who expressed understanding and agreement. All questions were answered. Thank you for involving us in the care of your patient. Please call with any questions. Subjective Principal diagnosis: CP, Elevated Troponins Interval history: Patient denies any chest pain this morning. She denies any concerns or complaints. Anxious to go home today. Objective Vital Signs, Last 4 Hours Temp Pulse Resp BP Pulse Ox 04/09/16 06:26 98.3 F 58 16 150/69 98 04/09/16 04:04 98.0 F 70 20 151/82 94 L General: Conversant, No Apparent Distress HEENT: Atraumatic, Normocephaly, Mucus Membranes Moist Cardiac: Reg Rate and Rhythm, Normal S1 and S2, No Murmur Lungs: Normal Breath Sounds, No Wheeze, Rales, Rhonchi Neuro: Alert and responsive, No focal deficits noted Skin: No rashes noted on visualized skin Results 04/08/16 01:05 04/08/16 01:05 Lab Results Laboratory Tests 04/08/16 04/08/16 04/08/16 01:05 06:03 13:17 Troponin I 0.14 H* 0.14 H* 0.12 H* ITS Impressions Retroperitoneum Ultrasound 04/08/16 08:30 IMPRESSION: 1. Patient is status post left-sided nephrectomy. 2. No acute sonographic abnormality seen of the right kidney. 3. Right renal cysts. 4. Unremarkable sonographic appearance of the urinary bladder. D/ / Gerardo Rich MD / Gerardo Rich MD Interpreting Provider: Gerardo Rich MD Active Medications Acetaminophen (Tylenol) 650 mg PO Q6HR PRN PRN Reason: Mild Pain (1-3) Stop: 10/08/16 00:18 Albuterol/Ipratropium (Duoneb) 3 ml IH [id number] PRN PRN Reason: Wheezing Stop: 10/08/16 20:01 Aspirin (Aspirin Ec) 81 mg PO DAILY [facility] Stop: 10/09/16 09:01 Last Admin: 04/09/16 07:42 Dose: 81 mg Dextrose/Water (Dextrose 50% (Syg)) 25 ml IVP AD PRN PRN Reason: Hypoglycemia Stop: 10/08/16 00:18 Docusate Sodium (Colace) 100 mg PO BID [facility] Stop: 10/08/16 09:01 Last Admin: 04/09/16 07:42 Dose: 100 mg Enoxaparin Sodium (Lovenox) 70 mg 1 mg/kg (70 mg) SQ Q24H FUAD PRN Reason: Protocol Stop: 10/08/16 10:01 Last Admin: 04/08/16 12:35 Dose: 70 mg Famotidine (Pepcid) 20 mg PO DAILY FUAD PRN Reason: Protocol Stop: 10/09/16 09:01 Last Admin: 04/09/16 07:41 Dose: 20 mg Furosemide (Lasix) 20 mg PO DAILY FUAD Stop: 10/08/16 09:01 Last Admin: 04/09/16 07:42 Dose: 20 mg Gabapentin (Neurontin) 100 mg PO BID [facility] Stop: 10/08/16 09:01 Last Admin: 04/09/16 07:42 Dose: 100 mg Glucagon (Glucagen) 1 mg IM ONCE PRN PRN Reason: Hypoglycemia Stop: 10/08/16 00:18 Glucose (Gluctose) 15 gm PO ONCE PRN PRN Reason: Hypoglycemia Stop: 10/08/16 00:18 Glucose (Gluctose) 30 gm PO ONCE PRN PRN Reason: Hypoglycemia Stop: 10/08/16 00:18 Sodium Chloride (0.9 % Sodium Chloride) 500 mls @ 25 mls/hr IVC .Q20H [facility] Stop: 10/08/16 00:31 Last Admin: 04/08/16 21:14 Dose: Not Given Dextrose (Dextrose 5%) 1,000 mls @ 100 mls/hr IV CONT PRN PRN Reason: HYPOGLYCEMIA Stop: 10/08/16 00:18 Insulin Human Lispro (Humalog) 0 units SQ HS [facility] PRN Reason: Protocol Stop: 10/08/16 21:01 Last Admin: 04/08/16 21:20 Dose: Not Given Insulin Human Lispro (Humalog) 0 units SQ TIDAC [facility] PRN Reason: Protocol Stop: 10/08/16 16:31 Last Admin: 04/08/16 17:25 Dose: 6 units Losartan Potassium (Cozaar) 25 mg PO DAILY [facility] Stop: 10/08/16 09:01 Last Admin: 04/09/16 07:42 Dose: 25 mg Metoprolol Succinate (Toprol Xl) 25 mg PO DAILY [facility] Stop: 10/08/16 09:01 Last Admin: 04/09/16 07:42 Dose: 25 mg Metoprolol Tartrate (Lopressor) 5 mg IVP Q6HR PRN PRN Reason: SEE COMMENTS Stop: 10/08/16 00:18 Last Admin: 04/08/16 01:43 Dose: 5 mg Morphine Sulfate (Morphine Sulfate) 2 mg IVP Q2H PRN PRN Reason: Severe Pain (7-10) Stop: 10/08/16 00:18 Naloxone HCl (Narcan) 0.4 mg IVP Q2MIN PRN PRN Reason: Opioid Reversal Stop: 10/08/16 00:18 Nifedipine (Procardia Xl) 60 mg PO DAILY [facility] Stop: 10/08/16 09:01 Last Admin: 04/09/16 07:42 Dose: 60 mg Nitroglycerin (Nitroglycerin) 0.4 mg SL Q5MIN PRN PRN Reason: Chest Pain Stop: 10/08/16 00:18 Ondansetron HCl (Zofran) 4 mg IVP Q8HR PRN PRN Reason: Nausea And Vomiting Stop: 10/08/16 00:18 Oxycodone HCl (Roxicodone) 5 mg PO Q6HR PRN PRN Reason: Moderate Pain (4-6) Stop: 10/08/16 00:18 Prednisone (Prednisone) 15 mg PO DAILY [facility] Stop: 10/08/16 09:01 Last Admin: 04/09/16 07:42 Dose: 15 mg Simvastatin (Zocor) 20 mg PO HS [facility] Stop: 10/08/16 21:01 Last Admin: 04/08/16 21:17 Dose: 20 mg - Imaging and Cardiology Echo: report reviewed - EKG Interpretation EKG results cardiology: other (24-hour telemetry reviewed with average heart rate 66, sinus rhythm, no events noted) - VTE Documentation of Mechanical Device: Intermittent pneumatic compression device Consult Discharge Plan - Plan Referrals: Rose Lira INTERNET MARKETING ASSISTANT [Advanced Practice Nurse] - 04/16/16 2:00 pm (Please follow up as schedule...)
[2016-04-09] MEDS ORDERED: Famotidine 20 MG TABLET PO SCH (09:00)
[2016-04-09] MEDS ORDERED: Aspirin Enteric Coated 81 MG Tablet PO SCH (09:00)
[2016-04-09 10:39] VITALS: BP 109/61
[2016-04-09] MEDS: *HR* Enoxaparin 80 MG/0.8 ML SYRINGE SQ SCH (11:41)
[2016-04-09 13:47] LABS: Basophils % 0.1 %; Eosinophils % 0.1 %; Hemoglobin 11.7 g/dL (11.5-15.4); Immature Granulocytes % 0.9 % (0-4); Lymphocytes # 1.1 K/mcL (0.6-4.6); Mean Corpuscular HGB Conc 32.5 g/dL (31.6-35.5); Mean Corpuscular Hemoglobin 29.8 pg (28.0-33.3); Mean Corpuscular Volume 91.6 fL (83.0-100.0); Mean Platelet Volume 9.2 fL (9.4-12.4); Monocytes # 0.2 K/mcL (0.0-1.3); Monocytes % 2.8 %; Neutrophils # 5.4 K/mcL (1.6-8.9); Platelet Count 282 K/mcL (140-400); Red Blood Count 3.93 M/mcL (3.82-4.97); Red Cell Distribution Width 13.8 % (11.5-14.5); Segmented Neutrophils % 80.1 %
[2016-04-09 13:55] LABS: Calcium 9.4 mg/dL (8.6-10.8); Potassium 4.2 mEq/L (3.5-4.5)
--- NOTE | 2016-04-09 14:55 | Discharge Summary ---
<Ravin Funes - Last Filed: 04/09/16 16:36> Date of Encounter: 04/09/16 Time of Encounter: 14:00 - Discharge Diagnosis (1) NSTEMI (non-ST elevated myocardial infarction) Priority: Primary Status: Acute Comments: NSTEMI ruled out, elevated troponins likely secondary to demand ischemia. (2) CAD (coronary artery disease), [place] coronary artery Priority: Secondary Status: Chronic Qualifiers: [place] vs. transplanted heart: [place] heart Associated angina: with unspecified angina Qualified Code(s): I25.119 - Atherosclerotic heart disease of [place] coronary artery with unspecified angina pectoris (3) HTN (hypertension) Priority: Secondary Status: Acute Qualifiers: Hypertension type: essential hypertension Qualified Code(s): I10 - Essential (primary) hypertension (4) PAD (peripheral artery disease) Priority: Secondary Status: Chronic (5) COPD (chronic obstructive pulmonary disease) Priority: Secondary Status: Acute Qualifiers: COPD type: unspecified COPD Qualified Code(s): J44.9 - Chronic obstructive pulmonary disease, unspecified (6) Diabetes Priority: Secondary Status: Acute Qualifiers: Diabetes mellitus type: type 2 Diabetes mellitus complication status: with unspecified complications Diabetes mellitus halfway insulin use: unspecified halfway insulin use status Qualified Code(s): E11.8 - Type 2 diabetes mellitus with unspecified complications (7) CKD (chronic kidney disease) Priority: Secondary Status: Chronic Qualifiers: Chronic kidney disease stage: stage 4 (severe) Qualified Code(s): N18.4 - Chronic kidney disease, stage 4 (severe) (8) Peripheral polyneuropathy Priority: Secondary Status: Acute (9) DVT prophylaxis Priority: Secondary Status: Acute (10) Polymyalgia rheumatica Priority: Secondary Status: Acute - Discharge Medications Prescriptions: PredniSONE 15 mg PO DAILY #30 tablet Home Medications: Aspirin 81 mg PO DAILY 04/08/16 [History] Calcitriol 0.5 mcg PO DAILY 04/08/16 [History] Cholecalciferol (Vitamin D3) [Vitamin D3] 1,000 unit PO DAILY 04/08/16 [History] Fluvastatin Sodium [Lescol] 40 mg PO HS 04/08/16 [History] Furosemide [Lasix] 20 mg PO DAILY 04/08/16 [History] Gabapentin [Neurontin] 100 mg PO BID 04/08/16 [History] Insulin DETEMIR [Levemir Flextouch] 20 unit SQ QAM 04/08/16 [History] Metoprolol XL (24 HR) Succ [Toprol Xl] 25 mg PO DAILY 04/08/16 [History] NIFEdipine [Nifedipine ER] 60 mg PO DAILY 04/08/16 [History] Losartan [Cozaar] 25 mg PO DAILY tablet 04/09/16 [Rx] PredniSONE 15 mg PO DAILY #30 tablet 04/09/16 [Rx] Allergies/Adverse Reactions: Allergies lisinopril Allergy (Verified 04/08/16 08:30) Diarrhea pioglitazone Allergy (Verified 04/08/16 08:30) See Comments LE edema Procedures/tests Complete & Pending: Procedures Performed prior 72 hours Category Date Time Status US retroperitoneal comp [US] Routine Exams 04/08/16 08:30 Completed ECG 12 lead ECG [ECG] Routine Y 04/08/16 00:17 Completed ECG 12 lead ECG [ECG] Routine Y 04/09/16 07:00 Ordered ECG 12 lead ECG [ECG] Stat Y 04/08/16 00:17 Stop Req EV echocardiogram Routine Y 04/08/16 00:17 Completed Date of admission: 04/08/16 11:18 Primary care physician: Willis Jang CNP Consults: 04/08/16 00:17 Consult to Cardiac Rehabilitation-Phase1 [CONS] Routine Comment: Reason for Consult: AMI Call Completed: Yes Consult to Nurse Navigator [CONS] Routine Comment: Consult to Nurse Navigator [CONS] Routine Comment: 04/08/16 08:00 Consult to Cardiology [CONS] Routine Comment: Consulting Provider: Cardiology Dorene Reason for Consult: ACS/UA/NSTEMI patient with known CAD/CABG/PTCA stent/HI 3 and PAD/LE bypass/LE stents. please evaluate and advise. Time Notified: 03:22 Call Completed: No - Patient Status Disposition: Home, Self-Care Condition: Good Functional capacity at discharge: independent ambulation Overall status at discharge: patient is progressing back to baseline - Discharge Instructions Instructions: Chronic Obstructive Pulmonary Disease (DC) Follow Up With: Gaurav Hwang CNP [Advanced Practice Nurse] - (Office will call you at home with appointment date and time) Rose Lira CNP [Advanced Practice Nurse] - 04/16/16 2:00 pm (Please follow up as schedule...) Dwaine Christie, [Partnered Physician] - 05/14/16 3:10 pm Additional Instructions: dose of prednisone increased from 5mg daily to 15mg daily. Please taper down by 2.5mg every four weeks. - Diet and Activity Activity: increase activity as tolerated Diet: diabetic diet, low fat, low cholesterol, low salt diet, other (low potassium) Hospital course: Ms. Cormier is a 81 year old female with PMHx of CAD/PTCAstents/CABG/AMIx3, PAD/ LE PCI-stents/LE bilateral fem/pop bypass, hypertension, dyslipidemia, Polymyalgia Rheumatica, osteoarthritis, osteoporosis, RLS, chr MSK pain, GERD/ dysphagia/esoph dysmotility, type II DM, peripheral polyneuropathy, CKD III-IV/ hydronephrosis, secondary hyperparathyroidism, H/O RCC s/p nephrectomy, anemia of chr dis, COPD/RAD, obesity, former smoker( 30pk-yrs). Patient presented to [facility] on 04/08/16 as a transfer from [facility] with CC of Atypical chest pain and was found to have NSTEMI. Troponins were elevated. She was placed on Lovenox, MARCELINO score 7- Indicating High risk. She was found to have elevated triglycerides, LDL, total cholesterol. She was placed on ASA, statin, BB. Consult to cardiology was made for possible intervention. Cardiology did not recommend any intervention, and they suspected demand ischemia in setting of COPD and CKD stage 4. Echo during her hospital stay showed normal LV systolic function, LVEF 65-70%, mild concentric LVH, mild lV diastolic dysfunciton, normal RV size and function, no evidence of pulmonary hypertension. During her hospital stay, patient had a retroperitoneal ultrasound that showed no acute sonographic abnormality of the right kidney (s/ p left nephrectomy). Did show right renal cysts, unremarkable appearance of bladder. Patient did complain of continued pain in her shoulders and lower extremities. She has hx of polymyalgia rheumatica and is on 5mg PO prednisone at home. Her dose was increased to 15mg prednisone daily to help with her pain. She should follow up with her PCP regarding this and see if this dose needs to be adjusted more. During her hospital stay, it was found that patient does not take her home inhalers regularly for COPD. She was counseled on importance of medication compliance to reduce mortality and hospital readmission. Patient was also counseled on importance of compliance with her diabetes management, and low fat/low cholesterol diet. Her daughter was in the room and was made aware of this as well. Throughout the remainder of her hospital stay, the patient remained stable and had no acute events. Plan: follow up with PCP in one week-home dose of prednisone may need to be adjusted. Follow up with [place] [facility] Follow up with nephrology. Time spent discussing smoking cessation with patient: 3 to 10 minutes - Time Spent with Patient Total time spent providing and/or coordinating discharge services: Greater than 30 minutes (40 mins) - Constitutional Vitals: Temp Pulse Resp BP Pulse Ox 97.5 F L 61 18 109/61 95 04/09/16 10:31 04/09/16 10:31 04/09/16 10:31 04/09/16 10:31 04/09/16 10:31 General appearance: Present: cooperative, mild distress, A&O X 3, pleasant, answers questions appropriately - Head Head exam: Present: atraumatic, normocephalic - Neck Neck exam general surgery: Present: supple, trachea midline - Respiratory Respiratory exam: Present: CTAB - Cardiovascular Cardiovascular exam: Present: RRR, +S1, +S2 - GI/Abdominal GI/Abdominal exam: Present: normal bowel sounds, soft. Absent: distended, tenderness - Extremities Exam Extremities exam: Present: tenderness. Absent: cyanotic, pedal edema - Neurological Exam Neurological exam: Present: alert, oriented X3, no focal deficits - Psychiatric Psychiatric exam: Present: anxious - Skin Additional comments: bruising present on upper and lower extremities bilaterally. - VTE Documentation of Mechanical Device: Intermittent pneumatic compression device <Arturo Buckner - Last Filed: 04/09/16 16:42> Date of Encounter: 04/09/16 Procedures/tests Complete & Pending: Procedures Performed prior 72 hours Category Date Time Status US retroperitoneal comp [US] Routine Exams 04/08/16 08:30 Completed ECG 12 lead ECG [ECG] Routine Y 04/08/16 00:17 Completed ECG 12 lead ECG [ECG] Routine Y 04/09/16 07:00 Ordered ECG 12 lead ECG [ECG] Stat Y 04/08/16 00:17 Stop Req EV echocardiogram Routine Y 04/08/16 00:17 Completed Date of admission: 04/08/16 11:18 Primary care physician: Willis Jang CNP Consults: 04/08/16 00:17 Consult to Cardiac Rehabilitation-Phase1 [CONS] Routine Comment: Reason for Consult: AMI Call Completed: Yes Consult to Nurse Navigator [CONS] Routine Comment: Consult to Nurse Navigator [CONS] Routine Comment: 04/08/16 08:00 Consult to Cardiology [CONS] Routine Comment: Consulting Provider: Cardiology Dorene Reason for Consult: ACS/UA/NSTEMI patient with known CAD/CABG/PTCA stent/HI 3 and PAD/LE bypass/LE stents. please evaluate and advise. Time Notified: 03:22 Call Completed: No Hospital course: Ms. Cormier is a 81 year old female - Time Spent with Patient Total time spent providing and/or coordinating discharge services: - Constitutional Vitals: Temp Pulse Resp BP Pulse Ox 97.5 F L 61 18 109/61 95 04/09/16 10:31 04/09/16 10:31 04/09/16 10:31 04/09/16 10:31 04/09/16 10:31 - Attending Attestation the patient agreed to increase dose of prednisone and hava a slow taper by her PCP until symptoms of PMR are properly controlled I examined this patient and my medical decision-making was reviewed with the LOSS PREVENTION SUPERVISOR/PA/Advanced Practice Nurse/Resident Physician. I agree with the documented findings, disposition and treatment plan as described except to the extent set forth below.
--- NOTE | 2016-04-09 17:18 | Electrocardiograph Report ---
[address] [place] [address] Test Date: 2016-04-08 Pat Name: Elsie Cormier Department: 112 Room: 2A26 Gender: Operations Forester: : 1935 Requested By: Conner Boogie Order Number: [id number] Reading MD: Dana Candelario Measurements Intervals [place] Rate: 50 P: DE: 0 QRS: -31 QRSD: 91 T: 184 QT: 489 QTc: 462 Interpretive Statements SINUS RHYTHM MARKED LEFT AXIS DEVIATION MODERATE VOLTAGE CRITERIA FOR LVH, CONSIDER NORMAL VARIANT MODERATE T-WAVE ABNORMALITY, CONSIDER ANTEROLATERAL ISCHEMIA Electronically Signed On 04-09-2016 17:16:54 EST by Dana Candelario
--- NOTE | 2016-04-12 06:55 | Electrocardiograph Report ---
[address] [place] [address] Test Date: 2016-04-09 Pat Name: Elsie Cormier Department: 112 Room: 2A26 Gender: F Veneer Cutter: : 1935 Requested By: Arturo Buckner Order Number: [id number] Reading MD: Juan Mariee MD Measurements Intervals [place] Rate: 51 P: 12 [place]: 127 QRS: -29 QRSD: 96 T: 161 QT: 523 QTc: 499 Interpretive Statements SINUS BRADYCARDIA BORDERLINE LEFT AXIS DEVIATION LEFT VENTRICULAR HYPERTROPHY AND ST-T CHANGE VERSUS ANTEROLATERAL ISCHEMIA Electronically Signed On 04-12-2016 6:54:00 EST by Juan Mariee MD
--- NOTE | 2016-04-12 06:55 | Electrocardiograph Report ---
[address] [place], [place] [address] Test Date: 2016-04-09 Pat Name: Elsie Cormier Department: 112 Room: 2A26 Gender: F Director Business Development: : 1935 Requested By: Conner Boogie Order Number: [id number] Reading MD: Juan Mariee MD Measurements Intervals [place] Rate: 51 P: 40 [place]: 129 QRS: -31 QRSD: 97 T: 151 QT: 527 QTc: 504 Interpretive Statements SINUS BRADYCARDIA MARKED LEFT AXIS DEVIATION LEFT VENTRICULAR HYPERTROPHY WITH SECONDARY ST CHANGES VERSUS ANTEROLATERAL ISCHEMIA BASELINE ARTIFACT Electronically Signed On 04-12-2016 6:53:29 EST by Juan Mariee MD
== END 2016-04-09 15:58 | disposition home or self-care (01) | DRG 303 ==
LOC: 2ANU
PROVIDERS: ADMIT Internal Medicine; ATTEND Internal Medicine

== ENCOUNTER 2016-08-24 11:19 | Observation (INO) ==
--- NOTE | 2016-08-24 11:38 | Emergency Department Note ---
Disposition Clinical Impression: Angina at rest Chronic renal disease Qualifiers: Chronic kidney disease stage: unspecified stage Qualified Code(s): N18.9 - Chronic kidney disease, unspecified Disposition: Admitted As Inpatient Condition: Good Referrals: NO,PCP [Non-Partnered Physician] - Forms: ED Satisfaction Letter Time of Disposition: 13:11 Chest Pain HPI - General Chief Complaint: ED Chest Pain Stated Complaint: Chest heaviness,back pain Time Seen by Provider: 08/24/16 11:23 Source: patient Mode of arrival: wheelchair Limitations: no limitations Vital Signs Reviewed: Yes Nursing Notes Reviewed: Yes - History of Present Illness HPI Narrative: Patient complains of substernal chest discomfort that radiates to her back that started 2 and half hours ago while doing housework. She notes worsening dyspnea and was described as being clammy by her family. She has a known history of peripheral arterial disease and coronary artery disease with stents deployed more than 10 years ago. She is uncertain whether she had a cardiac catheterization in January 2016 when transferred to [facility] for similar symptoms. Pt complaint: chest pain Onset (ago): hour(s) Duration: constant Onset: during rest Pain Location: substernal Severity scale (1-10): 3 Quality: tightness, aching Pain Radiation: back Improves with: nothing Worsens with: nothing Associated symptoms: Reports: dyspnea, other Treatments prior to arrival chest pain: aspirin - Related Data Home Medications Medication Instructions Recorded Confirmed Aspirin 81 mg PO DAILY 04/08/16 04/08/16 Calcitriol 0.5 mcg PO DAILY 04/08/16 04/08/16 Cholecalciferol (Vitamin D3) 1,000 unit PO DAILY 04/08/16 04/08/16 [Vitamin D3] Fluvastatin Sodium [Lescol] 40 mg PO HS 04/08/16 04/08/16 Furosemide [Lasix] 20 mg PO DAILY 04/08/16 04/08/16 Gabapentin [Neurontin] 100 mg PO BID 04/08/16 04/08/16 Insulin DETEMIR [Levemir Flextouch] 20 unit SQ QAM 04/08/16 04/08/16 Metoprolol XL (24 HR) Succ [Toprol 25 mg PO DAILY 04/08/16 04/08/16 Xl] NIFEdipine [Nifedipine ER] 60 mg PO DAILY 04/08/16 04/08/16 Previous Rx's Medication Instructions Recorded Losartan [Cozaar] 25 mg PO DAILY tablet 04/09/16 predniSONE [PredniSONE] 15 mg PO DAILY #30 tablet 04/09/16 Allergies Allergy/AdvReac Type Severity Reaction Status Date / Time lisinopril Allergy Diarrhea Verified 04/08/16 08:30 pioglitazone Allergy See Verified 04/08/16 08:30 Comments All systems ED: reviewed and negative except as stated. Constitutional: Reports: as per HPI Eyes: Reports: as per HPI ENT ED: Reports: as per HPI Cardiovascular: Reports: chest pain Respiratory: Reports: dyspnea Gastrointestinal: Reports: as per HPI Genitourinary: Reports: as per HPI Musculoskeletal: Reports: back pain Integumentary: Reports: as per HPI Neurological: Reports: as per HPI Psychiatric: Reports: as per HPI Endocrine: Reports: as per HPI Hematological/Lymphatic: Reports: as per HPI Allergic/Immunologic: Reports: as per HPI Chest Pain PMH - Past Medical History Medical history: Reports: arthritis, asthma, cancer, COPD, coronary artery disease, diabetes, GERD, hyperlipidemia, hypertension, myocardial infarction, RA , renal disease, TIA, venous stasis, other Surgical history: Reports: angioplasty/stent, appendectomy, cancer surgery ( Left nephrectomy-left adrenalectomy for renal cell carcinoma.), cholecystectomy , coronary bypass (CABG), herniorrhaphy (Hernia repair), hysterectomy, orthopedic, other (Back surgery.), GIBSON/BSO, other (Bladder suspension surgery.) , vascular surgery, LE bypass (Bilateral femoral-popliteal bypass surgery.), LE stent (s), LE vascular intervention, arthroscopy Psychiatric history: Reports: no psych history - Social History Smoking Status: Former smoker Alcohol use: Reports: none Drug use: Reports: none Physical Exam - General Limitations: no limitations General appearance: alert - Head Head exam: atraumatic - Eye Eye exam: Present: normal appearance - ENT ENT exam: normal exam - Neck Neck exam: Present: normal inspection, full ROM - Chest Chest inspection: Present: normal inspection, symmetric chest wall rise - Respiratory Respiratory exam: Present: normal lung sounds bilaterally - Cardiovascular Cardiovascular exam: Present: bradycardia, normal heart sounds - Rectal Exam Rectal exam: Present: deferred - Extremities Exam Extremities exam: Present: normal inspection - Back Exam Back exam: Present: normal inspection - Neurological Exam Neurological exam: Present: alert, oriented X3, CN II-XII intact - Psychiatric Psychiatric exam: Present: normal affect, normal mood - Skin Skin exam: Present: warm, dry, intact Course Course Narrative: Patient with known history of coronary artery disease presents to emergency department with chest discomfort that radiates to her back. EKG reviewed by me and is unchanged from previous by comparison. Workup including labs, troponin, chest x-ray initiated. Patient to be given nitroglycerin for her symptoms. Aspirin already taken prehospital - Reevaluation(s) Reevaluation #1: Pt reports that nitroglycerin relieved pain at time of reevaluation Vital Signs Temperature 98.6 F 08/24/16 11:28 Pulse Rate 54 08/24/16 11:28 Respiratory Rate 18 08/24/16 11:28 Blood Pressure 153/79 08/24/16 11:28 O2 Sat by Pulse Oximetry 96 08/24/16 11:28 Temperature 98.6 F 08/24/16 11:28 Pulse Rate 67 08/24/16 12:24 Respiratory Rate 18 08/24/16 12:24 Blood Pressure 140/76 08/24/16 12:24 O2 Sat by Pulse Oximetry 96 08/24/16 12:24 Chest Pain - Medical Records Medical records reviewed: Yes I reviewed the patient's medical records. - Lab Data Lab results reviewed: Yes I reviewed the patient's lab results. Result diagrams: 08/24/16 11:45 08/24/16 11:45 Lab Results 08/24/16 08/24/16 08/24/16 Range/Units 11:45 11:45 11:45 WBC 14.2 H (4.3-11.1) K/mcL RBC 4.31 (3.82-4.97) M/mcL Hgb 12.5 (11.5-15.4) g/dL Hct 38.4 (35.3-44.9) % MCV 89.1 (83.0-100.0) fL MCH 29.0 (28.0-33.3) pg MCHC 32.6 (31.6-35.5) g/dL RDW 13.8 (11.5-14.5) % Plt Count 280 (140-400) K/mcL MPV 9.7 (9.4-12.4) fL Immature Gran % 0.7 (0-4) % Seg Neutrophils % 85.5 % Lymphocytes % 10.0 % Monocytes % 3.4 % Eosinophils % 0.2 % Basophils % 0.2 % Neutrophils # 12.1 H (1.6-8.9) K/mcL Lymphocytes # 1.4 (0.6-4.6) K/mcL Monocytes # 0.5 (0.0-1.3) K/mcL Eosinophils # 0.0 (0.0-0.6) K/mcL Basophils # 0.0 (0.0-0.2) K/mcL PT 10.0 (9.4-12.1) Seconds INR 0.9 APTT 23.4 L (26.0-36.0) Seconds Sodium 139 (136-145) mEq/L Potassium 4.1 (3.5-4.5) mEq/L Chloride 105 (98-109) mEq/L Carbon Dioxide 26 (19-29) mEq/L BUN 37 H (7-20) mg/dL Creatinine 1.92 H (0.57-1.11) mg/dL Est GFR ( Amer) 30 L (> 60) Est GFR (Non-Af Amer) 25 L (> 60) BUN/Creatinine Ratio 19 (6-26) Glucose 114 H (70-99) mg/dL Calculated Osmolality 298 (280-300) Calcium 10.8 (8.6-10.8) mg/dL - Radiology Data Radiology results reviewed: Yes I reviewed the patient's radiology results. - EKG Data EKG attestation: Yes I reviewed and interpreted this EKG. EKG results narrative: Sinus bradycardia with short IL interval and premature supraventricular complexes weight 54 when necessary 116 QRS 85 QT/QTc 447/433 left ventricular hypertrophy. Inverted T waves in lead 1 aVL and V3 through V6 unchanged from previous study dated 04/09/16
[2016-08-24] MEDS: Nitroglycerin 0.4 MG TAB.SUBL SL ONE ×2 (12:14→12:22)
[2016-08-24 12:49] LABS: Basophils % 0.2 %; Eosinophils % 0.2 %; Hematocrit 38.4 % (35.3-44.9); Hemoglobin 12.5 g/dL (11.5-15.4); Immature Granulocytes % 0.7 % (0-4); Lymphocytes # 1.4 K/mcL (0.6-4.6); Mean Corpuscular HGB Conc 32.6 g/dL (31.6-35.5); Mean Corpuscular Volume 89.1 fL (83.0-100.0); Mean Platelet Volume 9.7 fL (9.4-12.4); Monocytes # 0.5 K/mcL (0.0-1.3); Monocytes % 3.4 %; Neutrophils # 12.1 K/mcL (1.6-8.9); Platelet Count 280 K/mcL (140-400); Red Blood Count 4.31 M/mcL (3.82-4.97); Red Cell Distribution Width 13.8 % (11.5-14.5); Segmented Neutrophils % 85.5 %
[2016-08-24 12:54] LABS: INR 0.9
[2016-08-24 12:57] LABS: Activated Partial Thrombo Time 23.4 Seconds (26.0-36.0)
[2016-08-24 13:01] LABS: Calcium 10.8 mg/dL (8.6-10.8); Potassium 4.1 mEq/L (3.5-4.5)
[2016-08-24] MEDS ORDERED: Acetaminophen 325 MG TABLET PO PRN (16:42)
[2016-08-24] MEDS ORDERED: Ondansetron ODT 4 MG TAB.RAPDIS SL PRN (16:42)
[2016-08-24] MEDS ORDERED: Naloxone 0.4 MG/ML INJ IVP PRN (16:42)
[2016-08-24] MEDS ORDERED: 0.9 % Sodium Chloride 1,000 ML IVC SCH (16:45)
[2016-08-24] MEDS ORDERED: Ipratropium/Albuterol Neb 3 ML IH PRN (16:46)
--- NOTE | 2016-08-24 16:54 | Event Note ---
Date of Encounter: 08/24/16 Time of Encounter: 16:51 1. Chest pain with history of CAD and stents Continue nitroglycerin as needed, morphine as needed, aspirin, statin, metoprolol Limited echocardiogram, schedule a stress test for the morning Consider cardiology consult if needed 2. Diabetes type 2 insulin-dependent, continue insulin sliding scale 3. Polymyalgia rheumatica, continue prednisone, 4. Hypertension, stable 5. COPD not oxygen dependent, stable Omeprazole for GI prophylaxis and Lovenox for DVT prophylaxis. The patient will be admitted for observation. Wishes to be a DNR CC arrest DNI. Time spent on this admission 40 minutes. H&P to be written by Shelly James NP
--- NOTE | 2016-08-24 18:36 | Internal Med History&Physical ---
<Shelly James M - Last Filed: 08/25/16 00:06> Date of Encounter: 08/24/16 Time of Encounter: 18:33 Assessment and Plan (1) Chest pain Current visit: Yes Status: Acute Patient with chest pain starting at 9 this morning, radiating to her back and accompanied by shortness of breath, diaphoresis, and relieved by nitroglycerin. Patient does have a history of coronary artery disease with history of CABG and stent placement in the past. EKG shows sinus bradycardia with LVH, no changes from previous. Chest x-ray showed no active pulmonary disease. Troponin normal at 0.02. Continuous cardiac/vascular sonographer Serial troponins Nitroglycerin and morphine when necessary for chest pain Continue aspirin, statin, beta anel Echocardiogram and stress test in the morning Qualifiers: Chest pain type: unspecified Qualified Code(s): R07.9 - Chest pain, unspecified (2) Acute kidney injury superimposed on chronic kidney disease Current visit: Yes Status: Acute Patient has chronic kidney disease following left nephrectomy for renal cell carcinoma. BUN and creatinine today above her baseline. Creatinine 1.9 to from previous of 1.84. Will hold losartan, check UA, recheck chemistry in the morning. (3) COPD (chronic obstructive pulmonary disease) Current visit: Yes Status: Chronic not in exacerbation, not complaining of increased SOB or cough. Continue duonebs PRN Qualifiers: COPD type: unspecified COPD Qualified Code(s): J44.9 - Chronic obstructive pulmonary disease, unspecified (4) Polymyalgia rheumatica Current visit: Yes Status: Chronic Continue home dose of prednisone. (5) DVT prophylaxis Current visit: Yes Status: Acute Lovenox SQ daily Internal Medicine - H&P: HPI Chief complaint: chest pain Admitted From: Emergency Dept Plans for Post Hospital Care: Home History of present illness: Ms. Cormier is a 81 year old female with hypertension, hyperlipidemia, type 2 diabetes, COPD, coronary artery disease with history of stent placement and CABG , CK 81, presents to the emergency department today with complaints of chest pain. Patient reports the chest pain started this morning at 9 AM, with severe , radiated through to her back, constant, and was not relieved by rest. Patient reports she went to the emergency room when the pain would not go away, and nitroglycerin helped. She denies any lightheadedness, nausea, vomiting, abdominal pain, diarrhea, fever, chills. She reports some sweating this morning with episode, as well as some shortness of breath. Evaluation emergency department included an EKG which showed sinus bradycardia heart rate of 54, LVH, no significant changes from previous EKGs. Chest x-ray showed no active pulmonary disease. Her white blood cell count was elevated 14.2. BUN and creatinine were elevated mildly above her baseline. Creatinine was 1.92 with previous being 1.84 in April. On exam, patient alert and oriented, in no acute distress. Heart had regular rate and rhythm, lungs are clear bilaterally to auscultation, no peripheral edema. Past Med Surg Social Fam HX - Past Medical History Medical history: arthritis, asthma, cancer, COPD, coronary artery disease, diabetes, GERD, hyperlipidemia, hypertension, myocardial infarction, RA, renal disease, TIA, venous stasis, other Psychiatric history: no psych history - Past Surgical History Surgical History: angioplasty/stent, appendectomy, cancer surgery, cholecystectomy, coronary bypass (CABG), herniorrhaphy, hysterectomy, orthopedic , other, GIBSON/BSO, other, vascular surgery, LE bypass, LE stent (s), LE vascular intervention, arthroscopy - Social History Smoking Status: Former smoker Smokeless Tobacco Status: No Alcohol use: none Drug use: none - Family History Mother Living Status: Internal Medicine - H&P: Meds Aspirin 81 mg PO DAILY 04/08/16 [History] Calcitriol 0.5 mcg PO DAILY 04/08/16 [History] Cholecalciferol (Vitamin D3) [Vitamin D3] 1,000 unit PO DAILY 04/08/16 [History] Furosemide [Lasix] 20 mg PO DAILY 04/08/16 [History] Insulin DETEMIR [Levemir Flextouch] 20 unit SQ QAM 04/08/16 [History] Metoprolol XL (24 HR) Succ [Toprol Xl] 25 mg PO DAILY 04/08/16 [History] NIFEdipine [Nifedipine ER] 60 mg PO DAILY 04/08/16 [History] Losartan [Cozaar] 25 mg PO DAILY tablet 04/09/16 [Rx] Ipratropium/Albuterol Neb [Duoneb] 3 ml IH Q6HR PRN 08/24/16 [History] predniSONE [PredniSONE] 5 mg PO DAILY 08/24/16 [History] Allergies lisinopril Allergy (Verified 04/08/16 08:30) Diarrhea pioglitazone Allergy (Verified 04/08/16 08:30) See Comments LE edema All Systems PM: A 10-system review of systems was performed and is negative for pertinent findings except as documented above in the HPI. - Constitutional Constitutional: no chills, no fever(s), no night sweats - EENT Eyes: no change in vision, no discharge, no pain, no photophobia Ears: no ear discharge, no ear pain, no tinnitus Nose, mouth and throat: no dysphagia, no nasal discharge, no neck pain, no sore throat - Cardiovascular Cardiovascular ROS IM: chest pain, diaphoresis, dyspnea, no lightheadedness, no palpitations, no syncope - Respiratory Respiratory: no cough, no dyspnea, no wheezing, no excessive phlegm production - Gastrointestinal Gastrointestinal: no abdominal pain, no diarrhea, no hematemesis, no hematochezia, no melena, no nausea, no vomiting - Genitourinary Genitourinary: no change in urinary stream, no dysuria, no flank pain, no hematuria - Musculoskeletal Musculoskeletal ROS IM: no numbness, no tingling - Integumentary Integumentary IM: no rash, no unusual bruising - Neurological Neurological ROS: no confusion, no convulsions, no focal weakness, no numbness, no tingling, no tremor(s) - Hematologic/Lymphatic Hematologic/Lymphatic: no easy bruising - Constitutional Vitals: Temp Pulse Resp BP Pulse Ox 97.7 F 65 14 162/72 97 08/24/16 15:37 08/24/16 15:37 08/24/16 15:37 08/24/16 15:37 08/24/16 15:37 General appearance: Present: A&O X 3, pleasant, no acute distress, obese - Head Head exam: Present: atraumatic, normocephalic - Eye Eye exam: Present: PERRL, conjuntiva pink, sclera anicteric Pupils: Present: PERRL - Neck Neck exam general surgery: Present: supple, trachea midline. Absent: lymphadenopathy - Respiratory Respiratory exam: Present: CTAB. Absent: accessory muscle use, rales, rhonchi, wheezes - Cardiovascular Cardiovascular exam: Present: RRR, +S1, +S2. Absent: diastolic murmur, gallop, rubs, systolic murmur - GI/Abdominal GI/Abdominal exam: Present: normal bowel sounds, soft, no peritoneal signs. Absent: distended, tenderness - Extremities Exam Extremities exam: Present: warm, radial pulses palpable and symetrical. Absent : calf tenderness, cyanotic, pedal edema - Neurological Exam Neurological exam: Present: CN II-XII intact, oriented X3, no focal deficits. Absent: facial droop, speech deficit - Skin Skin exam: Present: dry, intact Internal Med - H&P Results - Labs CBC & Chem 7: 08/24/16 11:45 08/24/16 11:45 Labs: All Lab Results (24 Hours) 08/24/16 08/24/16 08/24/16 Range/Units 11:45 11:45 11:45 WBC 14.2 H (4.3-11.1) K/mcL RBC 4.31 (3.82-4.97) M/mcL Hgb 12.5 (11.5-15.4) g/dL Hct 38.4 (35.3-44.9) % MCV 89.1 (83.0-100.0) fL MCH 29.0 (28.0-33.3) pg MCHC 32.6 (31.6-35.5) g/dL RDW 13.8 (11.5-14.5) % Plt Count 280 (140-400) K/mcL MPV 9.7 (9.4-12.4) fL Immature Gran % 0.7 (0-4) % Seg Neutrophils % 85.5 % Lymphocytes % 10.0 % Monocytes % 3.4 % Eosinophils % 0.2 % Basophils % 0.2 % Neutrophils # 12.1 H (1.6-8.9) K/mcL Lymphocytes # 1.4 (0.6-4.6) K/mcL Monocytes # 0.5 (0.0-1.3) K/mcL Eosinophils # 0.0 (0.0-0.6) K/mcL Basophils # 0.0 (0.0-0.2) K/mcL PT 10.0 (9.4-12.1) Seconds INR 0.9 APTT 23.4 L (26.0-36.0) Seconds Sodium 139 (136-145) mEq/L Potassium 4.1 (3.5-4.5) mEq/L Chloride 105 (98-109) mEq/L Carbon Dioxide 26 (19-29) mEq/L BUN 37 H (7-20) mg/dL Creatinine 1.92 H (0.57-1.11) mg/dL Est GFR ( Amer) 30 L (> 60) Est GFR (Non-Af Amer) 25 L (> 60) BUN/Creatinine Ratio 19 (6-26) Glucose 114 H (70-99) mg/dL POC Glucose (58-89) Calculated Osmolality 298 (280-300) Calcium 10.8 (8.6-10.8) mg/dL Troponin I (0-0.03) ng/mL 08/24/16 08/24/16 Range/Units 11:45 16:02 WBC (4.3-11.1) K/mcL RBC (3.82-4.97) M/mcL Hgb (11.5-15.4) g/dL Hct (35.3-44.9) % MCV (83.0-100.0) fL MCH (28.0-33.3) pg MCHC (31.6-35.5) g/dL RDW (11.5-14.5) % Plt Count (140-400) K/mcL MPV (9.4-12.4) fL Immature Gran % (0-4) % Seg Neutrophils % % Lymphocytes % % Monocytes % % Eosinophils % % Basophils % % Neutrophils # (1.6-8.9) K/mcL Lymphocytes # (0.6-4.6) K/mcL Monocytes # (0.0-1.3) K/mcL Eosinophils # (0.0-0.6) K/mcL Basophils # (0.0-0.2) K/mcL PT (9.4-12.1) Seconds INR APTT (26.0-36.0) Seconds Sodium (136-145) mEq/L Potassium (3.5-4.5) mEq/L Chloride (98-109) mEq/L Carbon Dioxide (19-29) mEq/L BUN (7-20) mg/dL Creatinine (0.57-1.11) mg/dL Est GFR ( Amer) (> 60) Est GFR (Non-Af Amer) (> 60) BUN/Creatinine Ratio (6-26) Glucose (70-99) mg/dL POC Glucose 221 H (58-89) Calculated Osmolality (280-300) Calcium (8.6-10.8) mg/dL Troponin I 0.02 (0-0.03) ng/mL - Diagnostic Studies Chest x-ray Additional comments: Chest X-Ray 08/24/16 11:34 IMPRESSION: 1. No active pulmonary disease. D/ / Juan Miguel Ricardo MD / Juan Miguel Ricardo MD Interpreting Provider: Juan Miguel Ricardo MD <Arturo Buckner H - Last Filed: 08/25/16 10:32> Date of Encounter: 08/25/16 Internal Medicine - H&P: HPI History of present illness: Ms. Cormier is a 81 year old female All Systems PM: A 10-system review of systems was performed and is negative for pertinent findings except as documented above in the HPI. - Constitutional Vitals: Temp Pulse Resp BP Pulse Ox 97.9 F 59 16 162/89 91 08/25/16 09:35 08/25/16 09:35 08/25/16 09:35 08/25/16 09:35 08/25/16 09:35 Internal Med - H&P Results - Labs CBC & Chem 7: 08/25/16 01:10 08/25/16 01:10 Labs: Short CBC 08/25/16 Range/Units 01:10 WBC 8.7 (4.3-11.1) K/mcL Hgb 11.4 L (11.5-15.4) g/dL Hct 35.2 L (35.3-44.9) % Plt Count 260 (140-400) K/mcL Neutrophils # 5.1 (1.6-8.9) K/mcL BMP 08/25/16 01:10 Sodium 140 Potassium 3.6 Chloride 106 Carbon Dioxide 26 BUN 33 H Creatinine 1.72 H Glucose 105 H Calcium 10.2 Cardiac Enzymes 08/24/16 08/25/16 Range/Units 17:57 01:10 Troponin I 0.02 0.02 (0-0.03) ng/mL Urine 08/24/16 Range/Units 18:58 Urine Color Yellow (Yellow) Urine Clarity Cloudy A (Clear) Urine pH 6.0 (5.0-8.0) pH Units Ur Specific [place] 1.014 (1.010-1.025) Urine Protein Negative (Neg-Trace) mg/dL Urine Glucose (UA) 500 H (Normal) mg/dL - Attending Attestation 1. Chest pain with history of CAD and stents Continue nitroglycerin as needed, morphine as needed, aspirin, statin, metoprolol Limited echocardiogram, schedule a stress test for the morning Consider cardiology consult if needed 2. Diabetes type 2 insulin-dependent, continue insulin sliding scale 3. Polymyalgia rheumatica, continue prednisone, 4. Hypertension, stable 5. COPD not oxygen dependent, stable Omeprazole for GI prophylaxis and Lovenox for DVT prophylaxis. The patient will be admitted for observation. Wishes to be a DNR CC arrest DNI. Time spent on this admission 40 minutes. H&P to be written by Shelly James LUMBER CHAIN OFFBEARER For this encounter, I have reviewed the LUMBER CHAIN OFFBEARER or PA documentation, treatment plan, and medical decision making; and I have had face to face time with this patient.
[2016-08-24] MEDS ORDERED: *HR* Dextrose 50 % in Water (Syg) 50 ML SYRINGE IVP PRN (18:54)
[2016-08-24] MEDS ORDERED: Dextrose Gel 15 GM PO PRN ×2 (18:54)
[2016-08-24] MEDS ORDERED: D5% in Water 1,000 ML IVC PRN (18:54)
[2016-08-24 20:43] LABS: Bilirubin,Urine Negative (Negative); Blood,Urine Negative (Negative); Clarity,Urine Cloudy (Clear); Color,Urine Yellow (Yellow); Glucose,Urine (UA) 500 mg/dL (Normal); Ketones,Urine Negative (Negative); Leukocyte Esterase,Urine Negative (Negative); Nitrite,Urine Negative (Negative); Protein,Urine Negative (Neg-Trace); Specific Gravity,Urine 1.014 (1.010-1.025); Urobilinogen,Urine Normal (Normal)
[2016-08-24 20:45] LABS: Bacteria,Urine Many per hpf (None-Few); Hyaline Casts,Urine None Seen per lpf (None-Few); RBC,Urine 0-3 per hpf (0-3); Squamous Epithelial Cell,Urine Many per lpf (None-Few); WBC,Urine 0-3 per hpf (0-3)
[2016-08-24] MEDS ORDERED: Insulin LISPRO 300 UNITS/3 ML VIAL SQ SCH (21:00)
[2016-08-25 02:10] LABS: Basophils % 0.2 %; Eosinophils # 0.1 K/mcL (0.0-0.6); Eosinophils % 0.6 %; Hematocrit 35.2 % (35.3-44.9); Hemoglobin 11.4 g/dL (11.5-15.4); Immature Granulocytes % 0.8 % (0-4); Lymphocytes # 2.5 K/mcL (0.6-4.6); Lymphocytes % 29.3 %; Mean Corpuscular HGB Conc 32.4 g/dL (31.6-35.5); Mean Corpuscular Hemoglobin 29.1 pg (28.0-33.3); Mean Corpuscular Volume 89.8 fL (83.0-100.0); Mean Platelet Volume 9.7 fL (9.4-12.4); Monocytes # 0.9 K/mcL (0.0-1.3); Monocytes % 10.5 %; Neutrophils # 5.1 K/mcL (1.6-8.9); Platelet Count 260 K/mcL (140-400); Red Blood Count 3.92 M/mcL (3.82-4.97); Red Cell Distribution Width 13.9 % (11.5-14.5); Segmented Neutrophils % 58.6 %
[2016-08-25 02:17] LABS: Calcium 10.2 mg/dL (8.6-10.8); Chol/HDL Ratio 4.7 (0-4.9); Potassium 3.6 mEq/L (3.5-4.5)
[2016-08-25] MEDS ORDERED: Regadenoson 0.4 MG/5 ML SYRINGE IVP ONE (07:38)
[2016-08-25] MEDS ORDERED: predniSONE 5 MG TABLET PO SCH (09:00)
[2016-08-25] MEDS ORDERED: Metoprolol XL (24 HR) Succ 25 MG TAB.ER.24H PO SCH (09:00)
[2016-08-25] MEDS ORDERED: Aspirin 81 MG TAB.CHEW PO SCH (09:00)
[2016-08-25] MEDS ORDERED: Insulin DETEMIR 100 UNIT/ML X5UNITS SQ SCH (09:00)
[2016-08-25] MEDS ORDERED: NON-FORMULARY MEDICATION 1 EACH EACH (Insulin Detemir [Levemir Flextouch] 20 UNIT) SQ SCH (09:00)
[2016-08-25] MEDS ORDERED: NIFEdipine XL (24 HR) 60 MG TAB.ER.24 PO SCH (09:00)
[2016-08-25] MEDS ORDERED: Furosemide 20 MG TABLET PO SCH (09:00)
[2016-08-25] MEDS: Insulin LISPRO 300 UNITS/3 ML VIAL SQ SCH ×2 (09:34→12:15)
--- NOTE | 2016-08-25 09:41 | Electrocardiograph Report ---
[email or web address] Test Date: 2016-08-24 Pat Name: Elsie Cormier Department: 105 Room: 3B47 Gender: F Director Of Therapy Services: MSC : 1935 Requested By: Clifford Bourgeois Order Number: [id number] Reading MD: Ruslan Day MD Measurements Intervals [place] Rate: 54 P: 62 [place]: 116 QRS: -26 QRSD: 85 T: 159 QT: 447 QTc: 433 Interpretive Statements SINUS BRADYCARDIA WITH SHORT OH INTERVAL WITH OCCASIONAL SUPRAVENTRICULAR PREMATURE COMPLEXES BORDERLINE LEFT AXIS DEVIATION [QRS AXIS < -20] LEFT VENTRICULAR HYPERTROPHY AND ST-T CHANGE [VOLTAGE CRITERIA PLUS ST/T ABNORMALITY] Electronically Signed On 08-25-2016 9:39:45 EDT by Ruslan Day MD
--- NOTE | 2016-08-25 10:32 | Nuclear Medicine Stress Report ---
Regadenoson Nuclear Stress Name: Elsie Cormier Date of Study: 08/25/2016 Date: 1935 Ht: 60.0 in Medical Record#: [id number] Age: 81 Wt: 150.0 lb Gender: Female Order #: [id number] Location: [facility] Room: OPT Supervising Provider: Asuncion Santa CNP Reading Physician: Chrissie Lenz DO Ordering Physician: Vivien Meredith CNP Primary Care Physician: Willis Jang CNP Stress Technologist: Alfredo Monroe, TRAFFIC CONTROL OFFICER, CCT Gathering Machine Feeder: Lion Malik Indications: Chest Pain Impression: Perfusion imaging was negative for ischemia or infarct. Pharmacologic ECG was negative for ischemia at the level of heart rate achieved. Gated EF = >70%. History: Hypertension Diabetes Prior PCI Stress Test Summary: Stress Test Type: Pharmacologic Regadenoson 0.4mg/5ml given IV Baseline Information: Initial Heart Rate: 58 Blood Pressure: 180/76 Stress Information: Stress Time: 4 min 00 sec Test Terminated Due to (primary): Completed Protocol Maximum Blood Pressure: 178/80 Maximum Heart Rate: 83 Percent Maximum Heart Rate Achieved: 59 Double Product: [id number] METS Reached: 1 Symptoms: Nausea, Headache Nuclear Summary: SPECT myocardial perfusion imaging using Tc99m Sestamibi given intravenously was performed at rest and following cardiac stress testing. The resting images were obtained following initial dose of 10.6 mCi. Following stress an additional dose of 35.9 mCi was given at peak exercise or 30 seconds post regadenoson infusion. Medication Given: Time Medication Dose Units Route Findings: Stress Note * Resting ECG demonstrated normal sinus rhythm with nonspecific ST-T abnormalities throughout. * No appreciable change in pharmacologic EKG with stress. * No arrhythmias were noted during stress. * Patient had no chest pain during stress. Hemodynamic responses * Normal hemodynamic responses to pharmacologic stress. Study Quality * Study quality is good. Gated EF > 70% * Gated EF > 70%. Left Ventricle * The left ventricle is not dilated. NORMALS * Normal wall motion. * Normal segmental perfusion in stress. * Normal Segmental Perfusion in rest. TID * No evidence of transient ischemic dilatation. Lung Uptake * There is no evidence of increase lung uptake. Updated by Chrissie Lenz on 08/25/2016 10:27:37 AM electronically signed on 08/25/2016 10:27:58 AM with status of Final
[2016-08-25 11:20] VITALS: BP 164/75
--- NOTE | 2016-08-25 13:17 | Discharge Summary ---
<Ryan Stearns - Last Filed: 08/25/16 13:15> Date of Encounter: 08/25/16 Time of Encounter: 11:00 - Discharge Diagnosis (1) Chest pain Priority: Primary Status: Acute Comments: Presented with chest pain radiating to her back and accompanied by SOB, diaphoresis, and relieved by nitroglycerin. -Patient does have a history of CAD with history of CABG and stent placement in the past. -EKG shows sinus bradycardia with LVH, no changes from previous. -Chest x-ray showed no acute changes. -Patient's cardiac function was continuously monitored. Serial troponins were drawn. -Patient was given aspirin, statin, and beta anel. -Stress test was performed. Negative for ischemia or infarct. -Pharmacologic E's EKG was negative for ischemia at the level of heart rate achieved. -Patient denies having any chest pain on date of discharge. Qualifiers: Chest pain type: unspecified Qualified Code(s): R07.9 - Chest pain, unspecified (2) Acute kidney injury superimposed on chronic kidney disease Priority: Secondary Status: Acute Comments: Patient has chronic kidney disease following left nephrectomy for renal cell carcinoma. -BUN and creatinine today above her baseline. -Creatinine [place] to a level of 1.9 initially, but this morning has decreased to 1.72. (3) COPD (chronic obstructive pulmonary disease) Priority: Secondary Status: Chronic Comments: Patient did not have any shortness of breath in the hospital. Qualifiers: COPD type: unspecified COPD Qualified Code(s): J44.9 - Chronic obstructive pulmonary disease, unspecified (4) Polymyalgia rheumatica Priority: Secondary Status: Chronic Comments: Patient is on prednisone 5 mg by mouth daily. - Discharge Medications Home Medications: Aspirin 81 mg PO DAILY 04/08/16 [History] Calcitriol 0.5 mcg PO DAILY 04/08/16 [History] Cholecalciferol (Vitamin D3) [Vitamin D3] 1,000 unit PO DAILY 04/08/16 [History] Furosemide [Lasix] 20 mg PO DAILY 04/08/16 [History] Insulin DETEMIR [Levemir Flextouch] 20 unit SQ QAM 04/08/16 [History] Metoprolol XL (24 HR) Succ [Toprol Xl] 25 mg PO DAILY 04/08/16 [History] NIFEdipine [Nifedipine ER] 60 mg PO DAILY 04/08/16 [History] Losartan [Cozaar] 25 mg PO DAILY tablet 04/09/16 [Rx] Ipratropium/Albuterol Neb [Duoneb] 3 ml IH Q6HR PRN 08/24/16 [History] predniSONE [PredniSONE] 5 mg PO DAILY 08/24/16 [History] Allergies/Adverse Reactions: Allergies lisinopril Allergy (Verified 04/08/16 08:30) Diarrhea pioglitazone Allergy (Verified 04/08/16 08:30) See Comments LE edema Procedures/tests Complete & Pending: Procedures Performed prior 72 hours Category Date Time Status NM howie perf SPECT multi [NM] Routine Exams 08/24/16 06:28 Taken EV limited echocardiogram Routine Y 08/24/16 16:54 Completed SP pharm nuclear stress Routine Y 08/24/16 16:54 Completed Date of admission: 08/24/16 14:16 Primary care physician: Willis Jang CNP Discharging clinician: Ryan Stearns Anticipated date of discharge: 08/25/16 - Patient Status Disposition: Home, Self-Care Functional capacity at discharge: independent ambulation - Discharge Instructions Instructions: Chest Pain (DC), Chronic Obstructive Pulmonary Disease (DC) Follow Up With: Willis Jang CNP [Primary Care Provider] - 09/01/16 11:00 am - Diet and Activity Activity: increase activity as tolerated Diet: advance to your usual diet Hospital course: Ms. Cormier is a 81 year old female with a past medical history of HTN, hyperlipidemia, type 2 diabetes, COPD, CAD with history of stent placement and CABG, CK 81, presented to ED with complaints of chest pain. Her pain began at 9 AM on the morning of admission. Radiated through to her back, constant, and was not relieved by rest. Patient reports she went to the ED when the pain would not go away. Nitroglycerin was somewhat effective for relieving her pain. On initial presentation, she denied any lightheadedness, nausea, vomiting , abdominal pain, diarrhea, fever, chills. She did have some shortness of breath and sweating. ED evaluation included EKG which showed sinus bradycardia heart rate of 54, LVH, no significant changes from previous EKGs. Chest x-ray showed no acute process. Her white count was elevated at 14.2. BUN and creatinine were elevated mildly above her baseline. Creatinine was 1.92 with previous being 1.84 in April. During her stay in the hospital, patient's creatinine decreased to 1.72. Troponin was normal at 0.02. On exam, patient alert and oriented, in no acute distress. Heart had regular rate and rhythm, lungs are clear bilaterally to auscultation, no peripheral edema. Patient denied having any chest pain after her admission. She was placed on a cardiac diet. Echocardiogram was performed. Results showed 60-65% left ventricular ejection fraction. No dysfunction was noted. Nuclear stress test was performed on patient. Perfusion imaging was negative for ischemia or infarct. Pharmacologic ECG was negative for ischemia at the level of heart rate achieved. On date of discharge, patient states that she is feeling well. She denies having any pain, shortness of breath, nausea, vomiting, fever, chills. Follow-up with PCP in the outpatient setting. - Time Spent with Patient Total time spent providing and/or coordinating discharge services: Greater than 30 minutes (43 minutes) - Constitutional Vitals: Temp Pulse Resp BP Pulse Ox 98.0 F 56 15 164/75 91 08/25/16 11:19 08/25/16 11:19 08/25/16 11:19 08/25/16 11:19 08/25/16 11:19 General appearance: Present: pleasant, no acute distress, obese - Head Head exam: Present: atraumatic, normocephalic - Neck Neck exam general surgery: Present: supple, trachea midline. Absent: lymphadenopathy - Respiratory Respiratory exam: Present: CTAB. Absent: accessory muscle use, rales, rhonchi, wheezes - Cardiovascular Cardiovascular exam: Present: RRR, +S1, +S2. Absent: diastolic murmur, gallop, rubs, systolic murmur - GI/Abdominal GI/Abdominal exam: Present: normal bowel sounds, soft, no peritoneal signs. Absent: distended, tenderness - Extremities Exam Extremities exam: Present: warm, radial pulses palpable and symetrical - Skin Skin exam: Present: dry, intact <Arturo Buckner - Last Filed: 08/25/16 13:46> Date of Encounter: 08/25/16 Procedures/tests Complete & Pending: Procedures Performed prior 72 hours Category Date Time Status NM howie perf SPECT multi [NM] Routine Exams 08/24/16 06:28 Taken EV limited echocardiogram Routine Y 08/24/16 16:54 Completed SP pharm nuclear stress Routine Y 08/24/16 16:54 Completed Date of admission: 08/24/16 14:16 Primary care physician: Willis Jang CNP Hospital course: Ms. Cormier is a 81 year old female - Time Spent with Patient Total time spent providing and/or coordinating discharge services: - Constitutional Vitals: Temp Pulse Resp BP Pulse Ox 98.0 F 56 15 164/75 91 08/25/16 11:19 08/25/16 11:19 08/25/16 11:19 08/25/16 11:19 08/25/16 11:19 - Attending Attestation Normal stress test. Stable to be discharged I examined this patient and my medical decision-making was reviewed with the Resident Physician. I agree with the documented findings, disposition and treatment plan as described except to the extent set forth below.
== END 2016-08-25 14:00 | disposition home or self-care (01) ==
LOC: EMEROO 11:19 → 3BNU 11:19 → SUATTDRO 14:16 → 3BNU 15:29
PROVIDERS: ADMIT Internal Medicine; ATTEND Internal Medicine

== ENCOUNTER 2017-02-23 10:27 | Inpatient (IN) ==
[2017-02-23 12:01] LABS: Bilirubin,Urine Negative (Negative); Blood,Urine Negative (Negative); Clarity,Urine Clear (Clear); Color,Urine Yellow (Yellow); Glucose,Urine (UA) Normal (Normal); Ketones,Urine Negative (Negative); Leukocyte Esterase,Urine Negative (Negative); Nitrite,Urine Negative (Negative); PH,Urine 6.5 pH Units (5.0-8.0); Protein,Urine Negative (Neg-Trace); Specific Gravity,Urine 1.011 (1.010-1.025); Urobilinogen,Urine Normal (Normal)
[2017-02-23] MEDS ORDERED: *HR* OxyCODONE/APAP 5/325 TABLET PO ONE (12:27)
[2017-02-23] MEDS ORDERED: *HR* FentaNYL (PF) 100 MCG/2 ML VIAL IVP ONE (12:29)
[2017-02-23 13:19] LABS: Basophils % 0.2 %; Hematocrit 40.4 % (35.3-44.9); Hemoglobin 13.4 g/dL (11.5-15.4); Immature Granulocytes % 0.6 % (0-4); Lymphocytes # 0.9 K/mcL (0.6-4.6); Lymphocytes % 9.1 %; Mean Corpuscular HGB Conc 33.2 g/dL (31.6-35.5); Mean Corpuscular Hemoglobin 30.1 pg (28.0-33.3); Mean Corpuscular Volume 90.8 fL (83.0-100.0); Mean Platelet Volume 8.8 fL (9.4-12.4); Monocytes # 0.3 K/mcL (0.0-1.3); Monocytes % 3.5 %; Neutrophils # 8.3 K/mcL (1.6-8.9); Platelet Count 357 K/mcL (140-400); Red Blood Count 4.45 M/mcL (3.82-4.97); Red Cell Distribution Width 12.8 % (11.5-14.5); Segmented Neutrophils % 86.6 %
[2017-02-23 13:31] LABS: Calcium 10.2 mg/dL (8.6-10.3); Potassium 3.7 mEq/L (3.5-5.1)
--- NOTE | 2017-02-23 13:32 | Emergency Department Note ---
Disposition Clinical Impression: Compression fracture of L1 lumbar vertebra Qualifiers: Encounter type: initial encounter Fracture type: closed Qualified Code(s): S32.010A - Wedge compression fracture of first lumbar vertebra, initial encounter for closed fracture Back pain Qualifiers: Back pain location: low back pain Chronicity: chronic Back pain laterality: bilateral Sciatica presence: without sciatica Qualified Code(s): M54.5 - Low back pain Disposition: Admitted As Inpatient Condition: Good Time of Disposition: 14:11 Back Pain HPI - General Chief Complaint: ED Back Pain/Injury Stated Complaint: Lower back pain Time Seen by Provider: 02/23/17 10:35 Source: patient, family Nursing Notes Reviewed: Yes Vital Signs Reviewed: Yes - History of Present Illness HPI Narrative: Mrs. Cormier, 81-year-old female, presents from home for evaluation of continued lower back pain. Onset 2 weeks ago. She was seen and evaluated in this emergency department one week ago. Described as dull and constant with sharp stabbing pains radiating across her lower back with movement. It is been unchanged since prior evaluation one week ago. She does have a history of polymyalgia rheumatica on chronic steroid therapy, managed by her primary care physician. She has never seen a help desk technician. ROS: Positive: As above Negative: No history of trauma, spinal or paraspinal procedures, fevers, preceding illness. She does have diabetic peripheral neuropathy which is unchanged in the context of his lower back symptoms. No unusual lower extremity weakness. No dysuria. No incontinence of bowel or bladder. No change in lower extremity sensation. - Related Data Home Medications Medication Instructions Recorded Confirmed Aspirin 81 mg PO DAILY 04/08/16 02/23/17 Calcitriol 0.5 mcg PO DAILY 04/08/16 02/23/17 Cholecalciferol (Vitamin D3) 1,000 unit PO DAILY 04/08/16 02/23/17 [Vitamin D3] Furosemide [Lasix] 20 mg PO DAILY 04/08/16 02/23/17 Insulin DETEMIR [Levemir Flextouch] 20 unit SQ QAM 04/08/16 02/23/17 Metoprolol XL (24 HR) Succ [Toprol 25 mg PO DAILY 04/08/16 02/23/17 Xl] NIFEdipine [Nifedipine ER] 60 mg PO DAILY 04/08/16 02/23/17 Ipratropium/Albuterol Neb [Duoneb] 3 ml IH Q6HR PRN 08/24/16 02/23/17 predniSONE [PredniSONE] 5 mg PO DAILY 08/24/16 02/23/17 Previous Rx's Medication Instructions Recorded Losartan [Cozaar] 25 mg PO DAILY tablet 04/09/16 HYDROcodone/Acet 5/325 mg [[place] 1 tab PO Q4H PRN #7 tab 02/16/17 5-325 mg] Allergies Allergy/AdvReac Type Severity Reaction Status Date / Time lisinopril Allergy Diarrhea Verified 02/23/17 10:32 pioglitazone Allergy See Verified 02/23/17 10:32 Comments All systems ED: reviewed and negative except as stated. Review of Systems: As Per HPI Past Medical History - Past Medical History Medical history: Reports: arthritis, asthma, cancer, COPD, coronary artery disease, diabetes, GERD, hyperlipidemia, hypertension, myocardial infarction, RA , renal disease, TIA, venous stasis, other Surgical history: Reports: angioplasty/stent, appendectomy, cancer surgery, cholecystectomy, coronary bypass (CABG), herniorrhaphy, hysterectomy, orthopedic , other, GIBSON/BSO, other, vascular surgery, LE bypass, LE stent (s), LE vascular intervention, arthroscopy Psychiatric history: Reports: no psych history - Social History Smoking Status: Former smoker Smokeless Tobacco Status: No Alcohol use: Reports: none Drug use: Reports: none Physical Exam Vital Signs Reviewed General: Patient is alert, oriented, and in no acute distress. HEENT: No facial asymmetry. Head is normocephalic and atraumatic. PERRLA, EOMI. Cardiovascular: Heart regular rate and rhythm without clicks, rubs, gallops, or murmurs. No JVD. PMI nondisplaced. Bilateral radial posterior tibial pulses 2 /4 equal. No pedal edema. Respiratory: Symmetric chest rise with good respiratory effort. Bilateral breath sounds are clear without wheezing, crackles, or rhonchi. Abdomen: Bowel sounds present normoactive x-4 quadrants. Abdomen is soft, nondistended, and nontender. No organomegaly noted. Musculoskeletal: Muscle strength 5/5 and symmetric bilaterally in upper and lower extremities. DTRs 2/4 and symmetric bilaterally in upper and lower extremities. Neuro: Sensation light touch intact in lower extremities. Psych: Patient's affect is appropriate for situation. - General General appearance: alert, in no apparent distress Course Course Narrative: Patient's presentation is concerning for multiple potential etiologies. She has been on chronic steroids and, no afebrile, will likely warrant MRI of her thoracic and lumbar spine to rule out epidural abscess. We will also CT lumbar spine and pelvis as her pain was in the lower lumbar nearly at the lumbosacral junction. Though no trauma, would like to rule out any acute fracture. Patient does have elevated ESR however, in the context of her known polymyalgia rheumatica, this is of limited value. Lumbar CT shows L1 compression fracture which does not directly explain her symptoms. I recommend the family the patient be admitted for continued evaluation as well as MRI. They are agreeable with this plan. I discussed the patient with the admitting hospitalist, Dr. Lopez, who agrees to accept the patient for continued violation management. Lumbar Spine CT 02/23/17 11:00 IMPRESSION: Acute L1 superior endplate compression with mild height loss. There is 1-2 mm osseous retropulsion. Diffuse osteopenia. D/ / Lucho Whitfield MD / Lucho Whitfield MD Interpreting Provider: Lucho Whitfield MD Pelvis CT 02/23/17 11:00 IMPRESSION: 1. No acute CT finding to account for patient's pelvis pain. Please note that CT may not reveal non-displaced fractures and stress changes. If that is the clinical suspicion, MRI is the study of choice. If there is a contraindication to MRI, bone scan is the next option. 2. Atherosclerosis with fem-fem cross over. 3. Sigmoid diverticulosis. No evidence of diverticulitis. 4. Status post hysterectomy. D/ / 02/23/2017 12:58:57 Mitchel Salinas MD / chuy Interpreting Provider: Mitchel Salinas MD Vital Signs Temperature 97.4 F L 02/23/17 10:29 Pulse Rate 58 02/23/17 10:29 Respiratory Rate 16 02/23/17 10:29 Blood Pressure 195/108 02/23/17 10:29 O2 Sat by Pulse Oximetry 98 02/23/17 10:29 Temperature 98.1 F 02/25/17 14:30 Pulse Rate 58 02/25/17 15:45 Respiratory Rate 17 02/25/17 15:45 Blood Pressure 138/69 02/25/17 15:45 O2 Sat by Pulse Oximetry 97 02/25/17 15:45 Oxygen Delivery Oxygen Delivery Room Air Back Pain/Injury - Lab Data Result diagrams: 02/24/17 09:35 02/24/17 09:35 Lab Results 02/23/17 02/23/17 02/23/17 Range/Units 11:51 13:13 13:13 WBC 9.6 (4.3-11.1) K/mcL RBC 4.45 (3.82-4.97) M/mcL Hgb 13.4 (11.5-15.4) g/dL Hct 40.4 (35.3-44.9) % MCV 90.8 (83.0-100.0) fL MCH 30.1 (28.0-33.3) pg MCHC 33.2 (31.6-35.5) g/dL RDW 12.8 (11.5-14.5) % Plt Count 357 (140-400) K/mcL MPV 8.8 L (9.4-12.4) fL Immature Gran % 0.6 (0-4) % Seg Neutrophils % 86.6 % Lymphocytes % 9.1 % Monocytes % 3.5 % Eosinophils % 0.0 % Basophils % 0.2 % Neutrophils # 8.3 (1.6-8.9) K/mcL Lymphocytes # 0.9 (0.6-4.6) K/mcL Monocytes # 0.3 (0.0-1.3) K/mcL Eosinophils # 0.0 (0.0-0.6) K/mcL Basophils # 0.0 (0.0-0.2) K/mcL ESR (0-15) mm/hr Sodium 136 (136-145) mEq/L Potassium 3.7 (3.5-5.1) mEq/L Chloride 101 (98-107) mEq/L Carbon Dioxide 26 (23-29) mEq/L BUN 30 H (8-23) mg/dL Creatinine 1.46 H (0.60-1.20) mg/dL Est GFR ( Amer) 42 L (> 60) Est GFR (Non-Af Amer) 34 L (> 60) BUN/Creatinine Ratio 21 (6-26) Glucose 96 (70-105) mg/dL Calculated Osmolality 288 (280-300) Calcium 10.2 (8.6-10.3) mg/dL Urine Color Yellow (Yellow) Urine Clarity Clear (Clear) Urine pH 6.5 (5.0-8.0) pH Units Ur Specific [place] 1.011 (1.010-1.025) Urine Protein Negative (Neg-Trace) mg/dL Urine Glucose (UA) Normal (Normal) mg/dL Urine Ketones Negative (Negative) mg/dL Urine Blood Negative (Negative) Urine Nitrite Negative (Negative) Urine Bilirubin Negative (Negative) Urine Urobilinogen Normal (Normal) mg/dL Ur Leukocyte Esterase Negative (Negative) Ur Culture Indicated? NO (NO) 02/23/17 Range/Units 13:13 WBC (4.3-11.1) K/mcL RBC (3.82-4.97) M/mcL Hgb (11.5-15.4) g/dL Hct (35.3-44.9) % MCV (83.0-100.0) fL MCH (28.0-33.3) pg MCHC (31.6-35.5) g/dL RDW (11.5-14.5) % Plt Count (140-400) K/mcL MPV (9.4-12.4) fL Immature Gran % (0-4) % Seg Neutrophils % % Lymphocytes % % Monocytes % % Eosinophils % % Basophils % % Neutrophils # (1.6-8.9) K/mcL Lymphocytes # (0.6-4.6) K/mcL Monocytes # (0.0-1.3) K/mcL Eosinophils # (0.0-0.6) K/mcL Basophils # (0.0-0.2) K/mcL ESR 87 H (0-15) mm/hr Sodium (136-145) mEq/L Potassium (3.5-5.1) mEq/L Chloride (98-107) mEq/L Carbon Dioxide (23-29) mEq/L BUN (8-23) mg/dL Creatinine (0.60-1.20) mg/dL Est GFR ( Amer) (> 60) Est GFR (Non-Af Amer) (> 60) BUN/Creatinine Ratio (6-26) Glucose (70-105) mg/dL Calculated Osmolality (280-300) Calcium (8.6-10.3) mg/dL Urine Color (Yellow) Urine Clarity (Clear) Urine pH (5.0-8.0) pH Units Ur Specific [place] (1.010-1.025) Urine Protein (Neg-Trace) mg/dL Urine Glucose (UA) (Normal) mg/dL Urine Ketones (Negative) mg/dL Urine Blood (Negative) Urine Nitrite (Negative) Urine Bilirubin (Negative) Urine Urobilinogen (Normal) mg/dL Ur Leukocyte Esterase (Negative) Ur Culture Indicated? (NO) Attestation Statement - Attestation Attestation: I examined this patient and my medical decision-making was reviewed with the Resident Physician. I agree with the documented findings, disposition and treatment plan as described except to the extent set forth below. Patient presents to the ED with low back pain. Patient has chronic low back pain but worsened over the past 1 week. She denies injury. She was seen at that time and return for some [place]. Follow up with her PCP who continued pain meds. States today her pain is worse. She has pain in her legs but it does not radiate. No new numbness. On examination she has tenderness over the SI joint. Negative straight leg raise. Laying on her side. Plan. Patient with compression fracture. Her pain is intolerable at home narcotics. We will admit for MRI and consultation for possible intervention.
[2017-02-23] MEDS ORDERED: Ipratropium/Albuterol Neb 3 ML IH PRN (15:22)
--- NOTE | 2017-02-23 15:28 | Internal Med History&Physical ---
Date of Encounter: 02/23/17 Time of Encounter: 15:26 Assessment and Plan (1) L1 vertebral fracture Current visit: Yes Status: Acute Denies trauma. Maybe related to osteoporosis. No signs of spinal cord injury. Get MRI. Appreciate spine surgery input. spine surgery input. Physical therapy and occupational therapy to see the patient. Pain control with morphine. She has increased her chronic prednisone therapy which takes for polymyalgia rheumatica to 20 mg daily and will continue this dose. Qualifiers: Qualified Code(s): S32.019A - Unspecified fracture of first lumbar vertebra, initial encounter for closed fracture (2) Diabetes mellitus Current visit: Yes Status: Acute Sliding scale insulin in addition to Lantus 10 units daily Qualifiers: Qualified Code(s): E11.9 - Type 2 diabetes mellitus without complications (3) CKD stage 3 due to type 1 diabetes mellitus Current visit: Yes Status: Acute Stable. Internal Medicine - H&P: HPI Chief complaint: back pain History of present illness: Ms. Cormier is a 81 year old female with history of polymyalgia rheumatica on chronic prednisone therapy presents to the emergency room today with the main content of back pain. Patient started experiencing worsening of her chronic back pain about a week ago. She does not recall any kind of trauma prior to the onset. She presented initially to the emergency room a few days ago and was given a prescription for [place] however patient was still complaining of severe pain and was able to bear weight only with difficulty with her walker. She still able to raise both lower extremity against gravity. She denies any stool incontinence. She denies any fever or chills. Past Med Surg Social Fam HX - Past Medical History Medical history: arthritis, asthma, cancer, COPD, coronary artery disease, diabetes, GERD, hyperlipidemia, hypertension, myocardial infarction, RA, renal disease, TIA, venous stasis, other Psychiatric history: no psych history - Past Surgical History Surgical History: angioplasty/stent, appendectomy, cancer surgery, cholecystectomy, coronary bypass (CABG), herniorrhaphy, hysterectomy, orthopedic , other, GIBSON/BSO, other, vascular surgery, LE bypass, LE stent (s), LE vascular intervention, arthroscopy - Social History Smoking Status: Former smoker Smokeless Tobacco Status: No Alcohol use: none Drug use: none - Family History Mother Living Status: Internal Medicine - H&P: Meds Aspirin 81 mg PO DAILY 04/08/16 [History] Calcitriol 0.5 mcg PO DAILY 04/08/16 [History] Cholecalciferol (Vitamin D3) [Vitamin D3] 1,000 unit PO DAILY 04/08/16 [History] Furosemide [Lasix] 20 mg PO DAILY 04/08/16 [History] Insulin DETEMIR [Levemir Flextouch] 20 unit SQ QAM 04/08/16 [History] Metoprolol XL (24 HR) Succ [Toprol Xl] 25 mg PO DAILY 04/08/16 [History] NIFEdipine [Nifedipine ER] 60 mg PO DAILY 04/08/16 [History] Losartan [Cozaar] 25 mg PO DAILY tablet 04/09/16 [Rx] Ipratropium/Albuterol Neb [Duoneb] 3 ml IH Q6HR PRN 08/24/16 [History] predniSONE [PredniSONE] 5 mg PO DAILY 08/24/16 [History] HYDROcodone/Acet 5/325 mg [[place] 5-325 mg] 1 tab PO Q4H PRN #7 tab 02/16/17 [Rx] 3 Allergy/AdvReac Type Severity Reaction Status Date / Time lisinopril Allergy Diarrhea Verified 02/23/17 10:32 pioglitazone Allergy See Verified 02/23/17 10:32 Comments All Systems PM: A 10-system review of systems was performed and is negative for pertinent findings except as documented above in the HPI. Review of systems: 10 point review of systems is negative except for HPI - Constitutional Vitals: Temp Pulse Resp BP Pulse Ox 97.4 F L 57 18 133/72 93 02/23/17 10:29 02/23/17 15:06 02/23/17 15:06 02/23/17 15:06 02/23/17 15:06 Exam: Gen.: patient is alert oriented times 3 not in distress. Cardiac: normal S1 S2 no additional sounds are murmurs. Chest: clear to auscultation. Abdomen: soft nontender nondistended. Lower extremity no swelling mucous membranes: moist muskloskletal: patient can raise both legs against gravity. Decrease ROM at hip joint more on the right side. Internal Med - H&P Results - Labs CBC & Chem 7: 02/23/17 13:13 02/23/17 13:13
[2017-02-23] MEDS: *HR* Morphine 2 MG/ML SYRINGE IVP PRN (16:47)
[2017-02-23] MEDS: Insulin LISPRO 300 UNITS/3 ML VIAL SQ SCH ×2 (16:48→21:32)
[2017-02-23] MEDS: *HR* Heparin 5,000 UNIT/ML VIAL SQ SCH (21:33)
[2017-02-24] MEDS: *HR* Morphine 2 MG/ML SYRINGE IVP PRN ×3 (01:10→22:54)
[2017-02-24] MEDS: *HR* Heparin 5,000 UNIT/ML VIAL SQ SCH ×3 (05:33→22:51)
[2017-02-24] MEDS: predniSONE 20 MG TABLET PO SCH (08:13)
[2017-02-24] MEDS: Cholecalciferol (D-3) 1,000 UNIT TABLET PO SCH (08:13)
[2017-02-24] MEDS: Famotidine 20 MG TABLET PO SCH (08:13)
[2017-02-24] MEDS: Aspirin 81 MG TAB.CHEW PO SCH (08:13)
[2017-02-24] MEDS: Metoprolol XL (24 HR) Succ 25 MG TAB.ER.24H PO SCH (08:13)
[2017-02-24] MEDS: NIFEdipine XL (24 HR) 60 MG TAB.ER.24 PO SCH (08:13)
[2017-02-24] MEDS: Insulin LISPRO 300 UNITS/3 ML VIAL SQ SCH ×4 (08:14→22:47)
[2017-02-24] MEDS: Insulin DETEMIR 100 UNIT/ML X5UNITS SQ SCH (09:49)
[2017-02-24 09:56] LABS: Basophils % 0.4 %; Eosinophils % 0.5 %; Hematocrit 39.8 % (35.3-44.9); Hemoglobin 12.9 g/dL (11.5-15.4); Immature Granulocytes % 0.6 % (0-4); Lymphocytes # 2.2 K/mcL (0.6-4.6); Lymphocytes % 27.3 %; Mean Corpuscular HGB Conc 32.4 g/dL (31.6-35.5); Mean Corpuscular Hemoglobin 30.2 pg (28.0-33.3); Mean Corpuscular Volume 93.2 fL (83.0-100.0); Monocytes # 0.7 K/mcL (0.0-1.3); Monocytes % 9.1 %; Platelet Count 325 K/mcL (140-400); Red Blood Count 4.27 M/mcL (3.82-4.97); Red Cell Distribution Width 13.1 % (11.5-14.5); Segmented Neutrophils % 62.1 %
[2017-02-24 10:10] LABS: Calcium 9.6 mg/dL (8.6-10.3); Potassium 3.6 mEq/L (3.5-5.1)
--- NOTE | 2017-02-24 16:56 | Internal Med Progress Note ---
Date of Encounter: 02/24/17 Time of Encounter: 11:00 - Assessment and plan (1) Compression fracture of L1 lumbar vertebra Current Visit: Yes Status: Acute Assessment and plan: -Patient reports of back pain for the last couple weeks and found to have acute L1 superior endplate compression with mild height loss on CT of lumbar spine. -Patient not able to obtain MRI due to metal in her body. -Orthopedic audio specialist and physical therapy consulted and appreciate recommendations. Qualifiers: Encounter type: initial encounter Fracture type: closed Qualified Code(s) : S32.010A - Wedge compression fracture of first lumbar vertebra, initial encounter for closed fracture (2) CAD (coronary artery disease), [place] coronary artery Current Visit: No Status: Chronic Assessment and plan: -Stable; continue aspirin, BB and CCB Qualifiers: [place] vs. transplanted heart: [place] heart Associated angina: with unspecified angina Qualified Code(s): I25.119 - Atherosclerotic heart disease of [place] coronary artery with unspecified angina pectoris (3) Polymyalgia rheumatica Current Visit: No Status: Chronic Assessment and plan: -Continue patient's home dose of prednisone 20 mg daily -Suspect that long-term steroid use contributed to lumbar fracture (4) COPD (chronic obstructive pulmonary disease) Current Visit: No Status: Chronic Qualifiers: COPD type: unspecified COPD Qualified Code(s): J44.9 - Chronic obstructive pulmonary disease, unspecified (5) Diabetes Current Visit: No Status: Acute Assessment and plan: -Controlled; continue home dose of Levemir Qualifiers: Diabetes mellitus type: type 2 Diabetes mellitus complication status: with unspecified complications Diabetes mellitus dedicated intermodal truck driver insulin use: unspecified retirement insulin use status Qualified Code(s): E11.8 - Type 2 diabetes mellitus with unspecified complications (6) CKD stage 3 due to type 1 diabetes mellitus Current Visit: Yes Status: Acute Assessment and plan: -Stable; creatinine at baseline (7) Obesity (BMI 30-39.9) Current Visit: No Status: Chronic Assessment and plan: -Lifestyle modifications. (8) DVT prophylaxis Current Visit: No Status: Acute Assessment and plan: Subcutaneous heparin - Subjective Interval history: Patient with lower back pain secondary to L1 fracture She is not able to have a MRI for further evaluation secondary to metal in he body - Constitutional Vitals: Temp Pulse Resp BP Pulse Ox 97.9 F 58 17 130/66 93 02/24/17 15:06 02/24/17 15:06 02/24/17 15:06 02/24/17 15:06 02/24/17 15:06 - Cardiovascular Cardiovascular exam: Present: RRR, +S1, +S2. Absent: diastolic murmur, gallop, rubs, systolic murmur Internal Medicine: Result - Labs CBC & Chem 7: 02/24/17 09:35 02/24/17 09:35 Labs: Short CBC 02/24/17 Range/Units 09:35 WBC 8.1 (4.3-11.1) K/mcL Hgb 12.9 (11.5-15.4) g/dL Hct 39.8 (35.3-44.9) % Plt Count 325 (140-400) K/mcL Neutrophils # 5.0 (1.6-8.9) K/mcL BMP 02/24/17 09:35 Sodium 138 Potassium 3.6 Chloride 103 Carbon Dioxide 27 BUN 28 H Creatinine 1.48 H Glucose 147 H Calcium 9.6 - VTE Documentation of Mechanical Device: Intermittent pneumatic compression device Consult Discharge Plan - Plan Referrals: Willis Jang IRRIGATIONIST [Primary Care Provider] -
[2017-02-25] MEDS: *HR* Heparin 5,000 UNIT/ML VIAL SQ SCH ×3 (04:50→20:38)
[2017-02-25] MEDS: Aspirin 81 MG TAB.CHEW PO SCH (08:19)
[2017-02-25] MEDS: Famotidine 20 MG TABLET PO SCH (08:19)
[2017-02-25] MEDS: Metoprolol XL (24 HR) Succ 25 MG TAB.ER.24H PO SCH (08:19)
[2017-02-25] MEDS: Insulin LISPRO 300 UNITS/3 ML VIAL SQ SCH ×4 (08:19→20:34)
[2017-02-25] MEDS: *HR* Morphine 2 MG/ML SYRINGE IVP PRN ×2 (08:20→13:44)
[2017-02-25] MEDS: predniSONE 20 MG TABLET PO SCH (08:20)
[2017-02-25] MEDS: NIFEdipine XL (24 HR) 60 MG TAB.ER.24 PO SCH (08:20)
[2017-02-25] MEDS: Insulin DETEMIR 100 UNIT/ML X5UNITS SQ SCH (08:20)
[2017-02-25] MEDS: Cholecalciferol (D-3) 1,000 UNIT TABLET PO SCH (08:21)
[2017-02-25 10:33] LABS: Bilirubin,Urine Small (Negative); Blood,Urine Negative (Negative); Clarity,Urine Cloudy (Clear); Color,Urine Yellow (Yellow); Glucose,Urine (UA) Normal (Normal); Ketones,Urine Negative (Negative); Leukocyte Esterase,Urine Trace (Negative); Nitrite,Urine Negative (Negative); Protein,Urine Trace mg/dL (Neg-Trace); Specific Gravity,Urine 1.021 (1.010-1.025); Urobilinogen,Urine Normal (Normal)
[2017-02-25 10:34] LABS: Bacteria,Urine None Seen per hpf (None-Few); Hyaline Casts,Urine None Seen per lpf (None-Few); Squamous Epithelial Cell,Urine Many per lpf (None-Few)
[2017-02-25 10:46] LABS: RBC,Urine 0-3 per hpf (0-3)
--- NOTE | 2017-02-25 14:57 | Pain Management History & Phys ---
Date of Encounter: 02/25/17 Time of Encounter: 14:55 Assessment and Plan (1) Acute low back pain Current Visit: Yes Status: Acute The assessment and plan as outlined above was discussed with the patient and/or family members who expressed understanding and agreement. All questions were answered. The patient's pain is not over the fracture and could be secondary. I recommend no kyphoplasty, rather analgesia and PT. Placement for 1-2 weeks may be an viable option. The patient's pain is mainly over the SI joints and is something we can treat as an outpatient. I would like to see her in the office following discharge. (2) Compression fracture of L1 lumbar vertebra Current Visit: Yes Status: Acute The assessment and plan as outlined above was discussed with the patient and/or family members who expressed understanding and agreement. All questions were answered. Not surgical at this time. No kyphoplasty indicated. Will order LSO brace and recommend SNF rehabilitation. History of Present Illness Chief complaint: back pain HPI: Ms. Cormier is a 81 year old female 81 year old female with back pain for two weeks located over the low back. Aching sensation. Worse with walking. Was bendin over alot doing housework and the patient developed paain acrross her low back. No radiation. No weakness. No bowel or bladder dysfunction. Past Med Surg Social Fam HX - Past Medical History Medical history: arthritis, asthma, cancer, COPD, coronary artery disease, diabetes, GERD, hyperlipidemia, hypertension, myocardial infarction, RA, renal disease, TIA, venous stasis, other Psychiatric history: no psych history - Past Surgical History Surgical History: angioplasty/stent, appendectomy, cancer surgery, cholecystectomy, coronary bypass (CABG), herniorrhaphy, hysterectomy, orthopedic , other, GIBSON/BSO, other, vascular surgery, LE bypass, LE stent (s), LE vascular intervention, arthroscopy - Social History Smoking Status: Former smoker Smokeless Tobacco Status: No Alcohol use: none Drug use: none - Family History Mother Living Status: Cause of : Cancer Hx Family Cancer: Yes Father Living Status: Cause of : Heart Attack Hx Family Cardiac Disorders: Yes Medications and Allergies Aspirin 81 mg PO DAILY 04/08/16 [History] Calcitriol 0.5 mcg PO DAILY 04/08/16 [History] Cholecalciferol (Vitamin D3) [Vitamin D3] 1,000 unit PO DAILY 04/08/16 [History] Furosemide [Lasix] 20 mg PO DAILY 04/08/16 [History] Insulin DETEMIR [Levemir Flextouch] 20 unit SQ QAM 04/08/16 [History] Metoprolol XL (24 HR) Succ [Toprol Xl] 25 mg PO DAILY 04/08/16 [History] NIFEdipine [Nifedipine ER] 60 mg PO DAILY 04/08/16 [History] Losartan [Cozaar] 25 mg PO DAILY tablet 04/09/16 [Rx] Ipratropium/Albuterol Neb [Duoneb] 3 ml IH Q6HR PRN 08/24/16 [History] predniSONE [PredniSONE] 5 mg PO DAILY 08/24/16 [History] HYDROcodone/Acet 5/325 mg [[place] 5-325 mg] 1 tab PO Q4H PRN #7 tab 02/16/17 [Rx] 3 Allergy/AdvReac Type Severity Reaction Status Date / Time lisinopril Allergy Diarrhea Verified 02/23/17 10:32 pioglitazone Allergy See Verified 02/23/17 10:32 Comments Review of Systems - Constitutional Constitutional ROS IM: no photophobia, no phonophobia, no daytime sleepiness, no fever(s), no stops breathing during sleep - Cardiovascular Cardiovascular ROS: no chest pain, no leg edema, no lightheadedness - Respiratory Respiratory: as per HPI, no pain on inspiration, no pain with cough - Gastrointestinal Gastrointestinal: no abdominal pain, no constipation, no diarrhea, no heartburn - Genitourinary Genitourinary ROS: no difficulty urinating, no flank pain, no urinary hesitancy - Musculoskeletal Musculoskeletal ROS: as per HPI, abnormal gait - Integumentary Integumentary: no erythema, no lesions, no swelling - Neurological Neurological ROS: abnormal gait - Psychiatric Psychiatric general: no anxiety, no confusion, no depression - Hematologic/Lymphatic Hematologic/Lymphatic pediatric: no easy bleeding, no easy bruising Physical Exam Initial Vital Signs Temp Pulse Resp BP Pulse Ox 97.4 F L 58 16 195/108 98 02/23/17 10:29 02/23/17 10:29 02/23/17 10:29 02/23/17 10:29 02/23/17 10:29 - General physical appearance General physical appearance: awake & oriented, no distress, moderate pain - Eyes Eye exam: normal ocular movement - Respiratory normal respiratory effort - Musculoskeletal Musculoskeletal: other (TTP over both SI joints. Low spine tenderness over the surgical scars. ) - Psychiatric Psychiatric: oriented to time, oriented to person, oriented to place Results - Labs 02/24/17 09:35 02/24/17 09:35 Abnormal lab results MPV 9.0 fL (9.4-12.4) L 02/24/17 09:35 ESR 87 mm/hr (0-15) H 02/23/17 13:13 BUN 28 mg/dL (8-23) H 02/24/17 09:35 Creatinine 1.48 mg/dL (0.60-1.20) H 02/24/17 09:35 Est GFR ( Amer) 41 (> 60) L 02/24/17 09:35 Est GFR (Non-Af Amer) 34 (> 60) L 02/24/17 09:35 Glucose 147 mg/dL (70-105) H 02/24/17 09:35 POC Glucose 200 (58-89) H 02/25/17 11:31 Urine Clarity Cloudy (Clear) A 02/25/17 10:00 Urine Bilirubin Small (Negative) H 02/25/17 10:00 Ur Leukocyte Esterase Trace (Negative) H 02/25/17 10:00 Urine Microscopic WBC 3-5 per hpf (0-3) H 02/25/17 10:00 Ur Squamous Epith Cells Many per lpf (None-Few) H 02/25/17 10:00 All other labs normal. - Imaging Additional studies: Reviewed 02/23/2017 CT lumbar spine. The patient has a newer L1 mild superior endplate fracture. - VTE Documentation of Mechanical Device: Intermittent pneumatic compression device
--- NOTE | 2017-02-25 17:57 | Internal Med Progress Note ---
Date of Encounter: 02/25/17 Time of Encounter: 11:00 - Assessment and plan (1) Compression fracture of L1 lumbar vertebra Current Visit: Yes Status: Acute Assessment and plan: -Patient reports of back pain for the last couple weeks and found to have acute L1 superior endplate compression with mild height loss on CT of lumbar spine. -Patient not able to obtain MRI due to metal in her body. -Orthopedic spine specialists consulted with recommendations for no kyphoplasty , rather analgesia and PT. -The patient's pain is mainly over the SI joints and can be managed as an outpatient and not from lumbar fracture -Recommendations for LSO brace and recommend SNF rehabilitation. Qualifiers: Encounter type: initial encounter Fracture type: closed Qualified Code(s) : S32.010A - Wedge compression fracture of first lumbar vertebra, initial encounter for closed fracture (2) CAD (coronary artery disease), [place] coronary artery Current Visit: No Status: Chronic Assessment and plan: -Stable; continue aspirin, BB and CCB Qualifiers: [place] vs. transplanted heart: [place] heart Associated angina: with unspecified angina Qualified Code(s): I25.119 - Atherosclerotic heart disease of [place] coronary artery with unspecified angina pectoris (3) Polymyalgia rheumatica Current Visit: No Status: Chronic Assessment and plan: -Continue patient's home dose of prednisone 20 mg daily -Suspect that long-term steroid use contributed to lumbar fracture (4) COPD (chronic obstructive pulmonary disease) Current Visit: No Status: Chronic Assessment and plan: -Stable; continue duo nebs Qualifiers: COPD type: unspecified COPD Qualified Code(s): J44.9 - Chronic obstructive pulmonary disease, unspecified (5) Diabetes Current Visit: No Status: Acute Assessment and plan: -Controlled; continue home dose of Levemir Qualifiers: Diabetes mellitus type: type 2 Diabetes mellitus complication status: with unspecified complications Diabetes mellitus skilled nursing insulin use: unspecified skilled nursing insulin use status Qualified Code(s): E11.8 - Type 2 diabetes mellitus with unspecified complications (6) CKD stage 3 due to type 1 diabetes mellitus Current Visit: Yes Status: Acute Assessment and plan: -Stable; creatinine at baseline (7) Obesity (BMI 30-39.9) Current Visit: No Status: Chronic Assessment and plan: -Lifestyle modifications. (8) DVT prophylaxis Current Visit: No Status: Acute Assessment and plan: Subcutaneous heparin - Subjective Interval history: Patient with lower back pain She is not able to have a MRI for further evaluation secondary to metal in he body - Constitutional Vitals: Temp Pulse Resp BP Pulse Ox 98.1 F 58 17 138/69 97 02/25/17 14:30 02/25/17 15:45 02/25/17 15:45 02/25/17 15:45 02/25/17 15:45 - Cardiovascular Cardiovascular exam: Present: RRR, +S1, +S2. Absent: diastolic murmur, gallop, rubs, systolic murmur Internal Medicine: Result - Labs CBC & Chem 7: 02/24/17 09:35 02/24/17 09:35 Labs: Urine 02/25/17 Range/Units 10:00 Urine Color Yellow (Yellow) Urine Clarity Cloudy A (Clear) Urine pH 6.0 (5.0-8.0) pH Units Ur Specific [place] 1.021 (1.010-1.025) Urine Protein Trace (Neg-Trace) mg/dL Urine Glucose (UA) Normal (Normal) mg/dL - VTE Documentation of Mechanical Device: Intermittent pneumatic compression device Consult Discharge Plan - Plan Referrals: Willis Jang, NIPPLE MACHINE OPERATOR [Primary Care Provider] -
[2017-02-26] MEDS: *HR* Morphine 2 MG/ML SYRINGE IVP PRN ×3 (00:31→12:22)
[2017-02-26] MEDS: *HR* Heparin 5,000 UNIT/ML VIAL SQ SCH ×3 (06:04→22:27)
[2017-02-26] MEDS: Insulin LISPRO 300 UNITS/3 ML VIAL SQ SCH ×4 (07:30→22:27)
[2017-02-26] MEDS: predniSONE 20 MG TABLET PO SCH (08:48)
[2017-02-26] MEDS: NIFEdipine XL (24 HR) 60 MG TAB.ER.24 PO SCH (08:48)
[2017-02-26] MEDS: Cholecalciferol (D-3) 1,000 UNIT TABLET PO SCH (08:48)
[2017-02-26] MEDS: Aspirin 81 MG TAB.CHEW PO SCH (08:48)
[2017-02-26] MEDS: Furosemide 20 MG TABLET PO SCH (08:49)
[2017-02-26] MEDS: Metoprolol XL (24 HR) Succ 25 MG TAB.ER.24H PO SCH (08:56)
[2017-02-26] MEDS: Insulin DETEMIR 100 UNIT/ML X5UNITS SQ SCH (08:57)
[2017-02-26 10:23] LABS: Basophils % 0.5 %; Eosinophils # 0.1 K/mcL (0.0-0.6); Eosinophils % 0.6 %; Hemoglobin 12.7 g/dL (11.5-15.4); Lymphocytes # 2.4 K/mcL (0.6-4.6); Lymphocytes % 29.8 %; Mean Corpuscular HGB Conc 31.8 g/dL (31.6-35.5); Mean Corpuscular Hemoglobin 29.9 pg (28.0-33.3); Mean Corpuscular Volume 94.1 fL (83.0-100.0); Mean Platelet Volume 9.3 fL (9.4-12.4); Monocytes # 0.7 K/mcL (0.0-1.3); Monocytes % 8.5 %; Neutrophils # 4.9 K/mcL (1.6-8.9); Platelet Count 307 K/mcL (140-400); Red Blood Count 4.25 M/mcL (3.82-4.97); Red Cell Distribution Width 12.9 % (11.5-14.5); Segmented Neutrophils % 59.6 %
[2017-02-26 10:42] LABS: Calcium 9.5 mg/dL (8.6-10.3); Potassium 3.9 mEq/L (3.5-5.1)
--- NOTE | 2017-02-26 18:15 | Internal Med Progress Note ---
Date of Encounter: 02/26/17 Time of Encounter: 11:00 - Assessment and plan (1) Compression fracture of L1 lumbar vertebra Current Visit: Yes Status: Acute Assessment and plan: -Patient reports of back pain for the last couple weeks and found to have acute L1 superior endplate compression with mild height loss on CT of lumbar spine. -Patient not able to obtain MRI due to metal in her body. -Orthopedic spine specialists consulted with recommendations for no kyphoplasty , rather analgesia and PT. -The patient's pain is mainly over the SI joints and can be managed as an outpatient and not from lumbar fracture -Recommendations for LSO brace and recommend SNF rehabilitation. Qualifiers: Encounter type: initial encounter Fracture type: closed Qualified Code(s) : S32.010A - Wedge compression fracture of first lumbar vertebra, initial encounter for closed fracture (2) CAD (coronary artery disease), [place] coronary artery Current Visit: No Status: Chronic Assessment and plan: -Stable; continue aspirin, BB and CCB Qualifiers: [place] vs. transplanted heart: [place] heart Associated angina: with unspecified angina Qualified Code(s): I25.119 - Atherosclerotic heart disease of [place] coronary artery with unspecified angina pectoris (3) Polymyalgia rheumatica Current Visit: No Status: Chronic Assessment and plan: -Continue patient's home dose of prednisone 20 mg daily -Suspect that long-term steroid use contributed to lumbar fracture (4) COPD (chronic obstructive pulmonary disease) Current Visit: No Status: Chronic Assessment and plan: -Stable; continue duo nebs Qualifiers: COPD type: unspecified COPD Qualified Code(s): J44.9 - Chronic obstructive pulmonary disease, unspecified (5) Diabetes Current Visit: No Status: Acute Assessment and plan: -Controlled; continue home dose of Levemir Qualifiers: Diabetes mellitus type: type 2 Diabetes mellitus complication status: with unspecified complications Diabetes mellitus retirement insulin use: unspecified retirement insulin use status Qualified Code(s): E11.8 - Type 2 diabetes mellitus with unspecified complications (6) CKD stage 3 due to type 1 diabetes mellitus Current Visit: Yes Status: Acute Assessment and plan: -Stable; creatinine at baseline (7) Obesity (BMI 30-39.9) Current Visit: No Status: Chronic Assessment and plan: -Lifestyle modifications. (8) DVT prophylaxis Current Visit: No Status: Acute Assessment and plan: Subcutaneous heparin - Subjective Interval history: Patient with lower back pain She is not able to have a MRI for further evaluation secondary to metal in he body Recommendations for medical management by orthopedic surgeon and for [facility] facility by physical therapy - Constitutional Vitals: Temp Pulse Resp BP Pulse Ox 98.0 F 51 14 123/70 93 02/26/17 14:16 02/26/17 14:16 02/26/17 14:16 02/26/17 14:16 02/26/17 14:16 - Respiratory Respiratory exam: Present: CTAB. Absent: accessory muscle use, rales, rhonchi, wheezes - Cardiovascular Cardiovascular exam: Present: RRR, +S1, +S2. Absent: diastolic murmur, gallop, rubs, systolic murmur Internal Medicine: Result - Labs CBC & Chem 7: 02/26/17 09:46 02/26/17 09:46 Labs: Short CBC 02/26/17 Range/Units 09:46 WBC 8.2 (4.3-11.1) K/mcL Hgb 12.7 (11.5-15.4) g/dL Hct 40.0 (35.3-44.9) % Plt Count 307 (140-400) K/mcL Neutrophils # 4.9 (1.6-8.9) K/mcL BMP 02/26/17 09:46 Sodium 138 Potassium 3.9 Chloride 107 Carbon Dioxide 24 BUN 32 H Creatinine 1.42 H Glucose 195 H Calcium 9.5 - VTE Documentation of Mechanical Device: Intermittent pneumatic compression device Consult Discharge Plan - Plan Referrals: Willis Jang CNP [Primary Care Provider] -
[2017-02-27] MEDS: *HR* Morphine 2 MG/ML SYRINGE IVP PRN ×3 (02:40→20:56)
[2017-02-27] MEDS: *HR* Heparin 5,000 UNIT/ML VIAL SQ SCH ×3 (06:12→20:43)
[2017-02-27] MEDS: Insulin LISPRO 300 UNITS/3 ML VIAL SQ SCH ×4 (07:30→20:44)
[2017-02-27] MEDS: Cholecalciferol (D-3) 1,000 UNIT TABLET PO SCH (10:09)
[2017-02-27] MEDS: Furosemide 20 MG TABLET PO SCH (10:09)
[2017-02-27] MEDS: Insulin DETEMIR 100 UNIT/ML X5UNITS SQ SCH (10:10)
[2017-02-27] MEDS: predniSONE 20 MG TABLET PO SCH (10:10)
[2017-02-27] MEDS: NIFEdipine XL (24 HR) 60 MG TAB.ER.24 PO SCH (10:10)
[2017-02-27] MEDS: Aspirin 81 MG TAB.CHEW PO SCH (10:10)
[2017-02-27] MEDS: Metoprolol XL (24 HR) Succ 25 MG TAB.ER.24H PO SCH (10:19)
--- NOTE | 2017-02-27 18:05 | Internal Med Progress Note ---
Date of Encounter: 02/27/17 Time of Encounter: 11:00 - Assessment and plan (1) Compression fracture of L1 lumbar vertebra Current Visit: Yes Status: Acute Assessment and plan: -Patient reports of back pain for the last couple weeks and found to have acute L1 superior endplate compression with mild height loss on CT of lumbar spine. -Patient not able to obtain MRI due to metal in her body. -Orthopedic spine specialists consulted with recommendations for no kyphoplasty , rather analgesia and PT. -The patient's pain is mainly over the SI joints and can be managed as an outpatient and not from lumbar fracture -Recommendations for LSO brace and recommend SNF rehabilitation. Qualifiers: Encounter type: initial encounter Fracture type: closed Qualified Code(s) : S32.010A - Wedge compression fracture of first lumbar vertebra, initial encounter for closed fracture (2) CAD (coronary artery disease), [place] coronary artery Current Visit: No Status: Chronic Assessment and plan: -Stable; continue aspirin, BB and CCB Qualifiers: [place] vs. transplanted heart: [place] heart Associated angina: with unspecified angina Qualified Code(s): I25.119 - Atherosclerotic heart disease of [place] coronary artery with unspecified angina pectoris (3) Polymyalgia rheumatica Current Visit: No Status: Chronic Assessment and plan: -Continue patient's home dose of prednisone 20 mg daily -Suspect that long-term steroid use contributed to lumbar fracture (4) COPD (chronic obstructive pulmonary disease) Current Visit: No Status: Chronic Assessment and plan: -Stable; continue duo nebs Qualifiers: COPD type: unspecified COPD Qualified Code(s): J44.9 - Chronic obstructive pulmonary disease, unspecified (5) Diabetes Current Visit: No Status: Acute Assessment and plan: -Controlled; continue home dose of Levemir Qualifiers: Diabetes mellitus type: type 2 Diabetes mellitus complication status: with unspecified complications Diabetes mellitus half-way insulin use: unspecified half-way insulin use status Qualified Code(s): E11.8 - Type 2 diabetes mellitus with unspecified complications (6) CKD stage 3 due to type 1 diabetes mellitus Current Visit: Yes Status: Acute Assessment and plan: -Stable; creatinine at baseline (7) Obesity (BMI 30-39.9) Current Visit: No Status: Chronic Assessment and plan: -Lifestyle modifications. (8) DVT prophylaxis Current Visit: No Status: Acute Assessment and plan: Subcutaneous heparin - Subjective Interval history: Patient with lower back pain She is not able to have a MRI for further evaluation secondary to metal in he body Recommendations for medical management by orthopedic surgeon and for [facility] facility by physical therapy - Constitutional Vitals: Temp Pulse Resp BP Pulse Ox 98.1 F 56 14 115/70 90 02/27/17 16:00 02/27/17 16:00 02/27/17 16:00 02/27/17 16:00 02/27/17 16:00 General appearance: Present: A&O X 3, no acute distress, answers questions appropriately - Cardiovascular Cardiovascular exam: Present: RRR, +S1, +S2. Absent: diastolic murmur, gallop, rubs, systolic murmur Internal Medicine: Result - Labs CBC & Chem 7: 02/26/17 09:46 02/26/17 09:46 - VTE Documentation of Mechanical Device: Intermittent pneumatic compression device Consult Discharge Plan - Plan Referrals: Willis Jang CELLOPHANE TESTER [Primary Care Provider] -
[2017-02-28] MEDS: *HR* Heparin 5,000 UNIT/ML VIAL SQ SCH ×3 (05:06→20:28)
[2017-02-28 09:43] LABS: Calcium 10.2 mg/dL (8.6-10.3); Potassium 3.6 mEq/L (3.5-5.1)
[2017-02-28] MEDS: Cholecalciferol (D-3) 1,000 UNIT TABLET PO SCH (09:59)
[2017-02-28] MEDS: Insulin LISPRO 300 UNITS/3 ML VIAL SQ SCH ×4 (09:59→20:27)
[2017-02-28] MEDS: predniSONE 20 MG TABLET PO SCH (10:00)
[2017-02-28] MEDS: Furosemide 20 MG TABLET PO SCH (10:00)
[2017-02-28] MEDS: Aspirin 81 MG TAB.CHEW PO SCH (10:00)
[2017-02-28] MEDS: NIFEdipine XL (24 HR) 60 MG TAB.ER.24 PO SCH (10:00)
[2017-02-28 10:04] LABS: Basophils % 0.4 %; Eosinophils % 0.4 %; Hematocrit 42.6 % (35.3-44.9); Hemoglobin 13.5 g/dL (11.5-15.4); Immature Granulocytes % 1.1 % (0-4); Lymphocytes # 2.3 K/mcL (0.6-4.6); Lymphocytes % 28.2 %; Mean Corpuscular HGB Conc 31.7 g/dL (31.6-35.5); Mean Corpuscular Hemoglobin 29.9 pg (28.0-33.3); Mean Corpuscular Volume 94.5 fL (83.0-100.0); Mean Platelet Volume 9.5 fL (9.4-12.4); Monocytes # 0.7 K/mcL (0.0-1.3); Platelet Count 327 K/mcL (140-400); Red Blood Count 4.51 M/mcL (3.82-4.97); Red Cell Distribution Width 12.9 % (11.5-14.5); Segmented Neutrophils % 60.9 %
[2017-02-28] MEDS: Metoprolol XL (24 HR) Succ 25 MG TAB.ER.24H PO SCH (10:05)
[2017-02-28] MEDS: Insulin DETEMIR 100 UNIT/ML X5UNITS SQ SCH (10:05)
[2017-02-28] MEDS: *HR* Morphine 2 MG/ML SYRINGE IVP PRN (13:32)
[2017-02-28] MEDS: *HR* OxyCODONE Immed Rel 5 MG TABLET PO PRN ×2 (14:23→20:27)
--- NOTE | 2017-02-28 19:14 | Internal Med Progress Note ---
Date of Encounter: 02/28/17 Time of Encounter: 11:00 - Assessment and plan (1) Compression fracture of L1 lumbar vertebra Current Visit: Yes Status: Acute Assessment and plan: -Patient reports of back pain for the last couple weeks and found to have acute L1 superior endplate compression with mild height loss on CT of lumbar spine. -Patient not able to obtain MRI due to metal in her body. -Orthopedic spine specialists consulted with recommendations for no kyphoplasty , rather analgesia and PT. -The patient's pain is mainly over the SI joints and can be managed as an outpatient and not from lumbar fracture -Recommendations for LSO brace and recommend SNF rehabilitation. Qualifiers: Encounter type: initial encounter Fracture type: closed Qualified Code(s) : S32.010A - Wedge compression fracture of first lumbar vertebra, initial encounter for closed fracture (2) CAD (coronary artery disease), [place] coronary artery Current Visit: No Status: Chronic Assessment and plan: -Stable; continue aspirin, BB and CCB Qualifiers: [place] vs. transplanted heart: [place] heart Associated angina: with unspecified angina Qualified Code(s): I25.119 - Atherosclerotic heart disease of [place] coronary artery with unspecified angina pectoris (3) Polymyalgia rheumatica Current Visit: No Status: Chronic Assessment and plan: -Continue patient's home dose of prednisone 20 mg daily -Suspect that long-term steroid use contributed to lumbar fracture (4) COPD (chronic obstructive pulmonary disease) Current Visit: No Status: Chronic Assessment and plan: -Stable; continue duo nebs Qualifiers: COPD type: unspecified COPD Qualified Code(s): J44.9 - Chronic obstructive pulmonary disease, unspecified (5) Diabetes Current Visit: No Status: Acute Assessment and plan: -Controlled; continue home dose of Levemir Qualifiers: Diabetes mellitus type: type 2 Diabetes mellitus complication status: with unspecified complications Diabetes mellitus skilled nursing insulin use: unspecified skilled nursing insulin use status Qualified Code(s): E11.8 - Type 2 diabetes mellitus with unspecified complications (6) CKD stage 3 due to type 1 diabetes mellitus Current Visit: Yes Status: Acute Assessment and plan: -Stable; creatinine at baseline (7) Obesity (BMI 30-39.9) Current Visit: No Status: Chronic Assessment and plan: -Lifestyle modifications. (8) DVT prophylaxis Current Visit: No Status: Acute Assessment and plan: Subcutaneous heparin - Subjective Interval history: Patient with lower back pain She is not able to have a MRI for further evaluation secondary to metal in he body Recommendations for medical management by orthopedic surgeon and for half-way facility by physical therapy - Constitutional Vitals: Temp Pulse Resp BP Pulse Ox 97.9 F 70 16 133/78 93 02/28/17 15:11 02/28/17 15:11 02/28/17 15:11 02/28/17 15:11 02/28/17 15:11 General appearance: Present: A&O X 3, no acute distress, answers questions appropriately - Cardiovascular Cardiovascular exam: Present: RRR, +S1, +S2. Absent: diastolic murmur, gallop, rubs, systolic murmur Internal Medicine: Result - Labs CBC & Chem 7: 02/28/17 08:51 02/28/17 08:51 Labs: Short CBC 02/28/17 Range/Units 08:51 WBC 8.2 (4.3-11.1) K/mcL Hgb 13.5 (11.5-15.4) g/dL Hct 42.6 (35.3-44.9) % Plt Count 327 (140-400) K/mcL Neutrophils # 5.0 (1.6-8.9) K/mcL BMP 02/28/17 08:51 Sodium 139 Potassium 3.6 Chloride 104 Carbon Dioxide 26 BUN 39 H Creatinine 1.61 H Glucose 102 Calcium 10.2 - VTE Documentation of Mechanical Device: Intermittent pneumatic compression device Consult Discharge Plan - Plan Referrals: Willis Jang SENIOR MEDIA DIRECTOR [Primary Care Provider] -
[2017-03-01] MEDS: *HR* OxyCODONE Immed Rel 5 MG TABLET PO PRN ×2 (05:22→11:46)
[2017-03-01] MEDS: *HR* Heparin 5,000 UNIT/ML VIAL SQ SCH ×2 (05:22→17:22)
[2017-03-01] MEDS: Insulin LISPRO 300 UNITS/3 ML VIAL SQ SCH ×3 (08:18→17:20)
[2017-03-01] MEDS: NIFEdipine XL (24 HR) 60 MG TAB.ER.24 PO SCH (09:16)
[2017-03-01] MEDS: Metoprolol XL (24 HR) Succ 25 MG TAB.ER.24H PO SCH (09:16)
[2017-03-01] MEDS: Insulin DETEMIR 100 UNIT/ML X5UNITS SQ SCH (09:16)
[2017-03-01] MEDS: Furosemide 20 MG TABLET PO SCH (09:16)
[2017-03-01] MEDS: Cholecalciferol (D-3) 1,000 UNIT TABLET PO SCH (09:16)
[2017-03-01] MEDS: predniSONE 20 MG TABLET PO SCH (09:16)
[2017-03-01] MEDS: Aspirin 81 MG TAB.CHEW PO SCH (09:16)
[2017-03-01 11:02] VITALS: BP 131/67
--- NOTE | 2017-03-01 15:00 | Discharge Summary ---
Date of Encounter: 03/01/17 Time of Encounter: 14:57 - Discharge Diagnosis (1) Compression fracture of L1 lumbar vertebra Priority: Primary Status: Acute Qualifiers: Encounter type: initial encounter Fracture type: closed Qualified Code(s) : S32.010A - [place] compression fracture of first lumbar vertebra, initial encounter for closed fracture (2) Acute low back pain Priority: Primary Status: Acute Qualifiers: Qualified Code(s): M54.5 - Low back pain (3) CAD (coronary artery disease), [place] coronary artery Priority: Secondary Status: Chronic Qualifiers: [place] vs. transplanted heart: [place] heart Associated angina: with unspecified angina Qualified Code(s): I25.119 - Atherosclerotic heart disease of [place] coronary artery with unspecified angina pectoris (4) COPD (chronic obstructive pulmonary disease) Priority: Secondary Status: Chronic Qualifiers: COPD type: unspecified COPD Qualified Code(s): J44.9 - Chronic obstructive pulmonary disease, unspecified (5) Polymyalgia rheumatica Priority: Secondary Status: Chronic (6) Diabetes mellitus Priority: Secondary Status: Acute Qualifiers: Qualified Code(s): E11.9 - Type 2 diabetes mellitus without complications (7) Obesity (BMI 30-39.9) Priority: Secondary Status: Chronic - Discharge Medications Prescriptions: Cyclobenzaprine [Flexeril] 5 mg PO TID PRN #20 tablet PRN Reason: Spasms HYDROcodone/Acet 5/325 mg [[place] 5-325 mg] 1 tab PO Q4H PRN #20 tab PRN Reason: Pain Home Medications: Aspirin 81 mg PO DAILY 04/08/16 [History] Calcitriol 0.5 mcg PO DAILY 04/08/16 [History] Cholecalciferol (Vitamin D3) [Vitamin D3] 1,000 unit PO DAILY 04/08/16 [History] Furosemide [Lasix] 20 mg PO DAILY 04/08/16 [History] Insulin DETEMIR [Levemir Flextouch] 20 unit SQ QAM 04/08/16 [History] Metoprolol XL (24 HR) Succ [Toprol Xl] 25 mg PO DAILY 04/08/16 [History] NIFEdipine [Nifedipine ER] 60 mg PO DAILY 04/08/16 [History] Losartan [Cozaar] 25 mg PO DAILY tablet 04/09/16 [Rx] Ipratropium/Albuterol Neb [Duoneb] 3 ml IH Q6HR PRN 08/24/16 [History] predniSONE [PredniSONE] 5 mg PO DAILY 08/24/16 [History] Cyclobenzaprine [Flexeril] 5 mg PO TID PRN #20 tablet 03/01/17 [Rx] HYDROcodone/Acet 5/325 mg [[place] 5-325 mg] 1 tab PO Q4H PRN #20 tab 03/01/17 [Rx ] Allergies/Adverse Reactions: 3 Allergy/AdvReac Type Severity Reaction Status Date / Time lisinopril Allergy Diarrhea Verified 02/23/17 10:32 pioglitazone Allergy See Verified 02/23/17 10:32 Comments Date of admission: 02/26/17 18:15 Primary care physician: Willis Jang CNP - Patient Status Disposition: Transfer SNF Condition: Good Overall status at discharge: patient is back to baseline - Discharge Instructions Follow Up With: Willis Jang CNP [Primary Care Provider] - - Diet and Activity Activity: as per physical therapy, increase activity as tolerated Diet: low salt diet Hospital course: Ms. Cormier is a 81 year old female with history of polymyalgia rheumatica on chronic prednisone therapy presents to the emergency room with the main content of back pain. Patient started experiencing worsening of her chronic back pain about a week ago. She does not recall any kind of trauma prior to the onset. Her CT of Spine showed acute L1 superior endplate compression fracture. Pt was admitted in the hospital and started her on symptomatic and supportive care with IV analgesics. Pt was evaluated by Ortho spine surgery team, who recommend conservative, non operative care with IV analgesics and PT / OT. Pt was evaluated by PT / OT who recommend ECF placement for short term rehab. I asked the pt to talk to her PCP to go for DEXA scan since she is high risk for osteoporosis with chronic steroid therapy. - Time Spent with Patient Total time spent providing and/or coordinating discharge services: - Constitutional Vitals: Temp Pulse Resp BP Pulse Ox 97.5 F L 70 16 131/67 94 03/01/17 10:54 03/01/17 10:54 03/01/17 10:54 03/01/17 10:54 03/01/17 10:54 General appearance: Present: A&O X 3, no acute distress, answers questions appropriately - Head Head exam: Present: atraumatic, normal inspection - Respiratory Respiratory exam: Present: CTAB. Absent: accessory muscle use, rales, rhonchi, wheezes - Cardiovascular Cardiovascular exam: Present: RRR, +S1, +S2. Absent: diastolic murmur, gallop, rubs, systolic murmur - GI/Abdominal GI/Abdominal exam: Present: normal bowel sounds, soft. Absent: rebound, rigid, tenderness - Extremities Exam Extremities exam: Absent: calf tenderness, pedal edema, tenderness - Back Exam Back exam: Present: tenderness, vertebral tenderness (lower lumbar region) - Psychiatric Psychiatric exam: Present: normal affect, normal mood - VTE Documentation of Mechanical Device: Intermittent pneumatic compression device
--- NOTE | 2017-03-01 15:07 | Physician Discharge Referral ---
ExtendedCare Referral Info Transfer To: ECF Provider in Charge after Transfer: PCP Institutional Level of Care: Skilled - Diagnosis (1) Compression fracture of L1 lumbar vertebra Status: Acute (2) Acute low back pain Status: Acute (3) CAD (coronary artery disease), [place] coronary artery Status: Chronic (4) COPD (chronic obstructive pulmonary disease) Status: Chronic (5) Polymyalgia rheumatica Status: Chronic (6) Diabetes mellitus Status: Acute (7) Obesity (BMI 30-39.9) Status: Chronic - Transfer Medications Prescriptions: Cyclobenzaprine [Flexeril] 5 mg PO TID PRN #20 tablet PRN Reason: Spasms HYDROcodone/Acet 5/325 mg [[place] 5-325 mg] 1 tab PO Q4H PRN #20 tab PRN Reason: Pain Home Medications: Aspirin 81 mg PO DAILY 04/08/16 [History] Calcitriol 0.5 mcg PO DAILY 04/08/16 [History] Cholecalciferol (Vitamin D3) [Vitamin D3] 1,000 unit PO DAILY 04/08/16 [History] Furosemide [Lasix] 20 mg PO DAILY 04/08/16 [History] Insulin DETEMIR [Levemir Flextouch] 20 unit SQ QAM 04/08/16 [History] Metoprolol XL (24 HR) Succ [Toprol Xl] 25 mg PO DAILY 04/08/16 [History] NIFEdipine [Nifedipine ER] 60 mg PO DAILY 04/08/16 [History] Losartan [Cozaar] 25 mg PO DAILY tablet 04/09/16 [Rx] Ipratropium/Albuterol Neb [Duoneb] 3 ml IH Q6HR PRN 08/24/16 [History] predniSONE [PredniSONE] 5 mg PO DAILY 08/24/16 [History] Cyclobenzaprine [Flexeril] 5 mg PO TID PRN #20 tablet 03/01/17 [Rx] HYDROcodone/Acet 5/325 mg [[place] 5-325 mg] 1 tab PO Q4H PRN #20 tab 03/01/17 [Rx ] Allergies/Adverse Reactions: 3 Allergy/AdvReac Type Severity Reaction Status Date / Time lisinopril Allergy Diarrhea Verified 02/23/17 10:32 pioglitazone Allergy See Verified 02/23/17 10:32 Comments - Respiratory Orders Smoking Cessation: Smoking cessation has been advised. For more information, call the [place] Tobacco Quit Line at 7-664-HXLB-NOW. CERTIFICATION: I certify that the transfer of the above named patient to an Extended Care Facility is necessary for the continuing treatment of the diagnosis listed. The above information is true and accurate reflection of patient's current condition. Confidential - Redisclosure prohibited without a patient's written consent.
== END 2017-03-01 18:51 | disposition other institution (70) | DRG 552 ==
LOC: 3ANU 10:27 → EMEROO 10:27 → 3ANU 15:47 → SUATTDRO 02-26 18:15
PROVIDERS: ADMIT Hospitalist; ATTEND Family Medicine

== ENCOUNTER 2017-06-26 08:48 | Inpatient (IN) ==
[2017-06-26] MEDS ORDERED: Heparin 1,000 UNITS/500 mL 500 ML ONE ×2 (09:14→10:52)
[2017-06-26] MEDS ORDERED: 0.9 % Sodium Chloride 2,000 ML ONE (09:14)
[2017-06-26] MEDS ORDERED: *HR* Heparin 10,000 UNIT/10 ML VIAL ONE (09:14)
[2017-06-26] MEDS ORDERED: ISOVUE-370 200 ML INFUS..BTL IV ONE ×2 (09:15→09:24)
[2017-06-26] MEDS ORDERED: Nitroglycerin 1,000 MCG/10 ML VIAL IV ONE (09:15)
[2017-06-26] MEDS ORDERED: *HR* Bivalirudin 250 MG VIAL IVC ONE ×2 (09:24→10:52)
[2017-06-26] MEDS ORDERED: *HR* FentaNYL (PF) 250 MCG/5 ML VIAL ONE (09:53)
[2017-06-26] MEDS ORDERED: *HR* Midazolam HCl 5 MG/5 ML VIAL IVP ONE (09:53)
[2017-06-26] MEDS ORDERED: Nitroglycerin 25 MG/250 ML INFUS..BTL IVC ONE (10:00)
[2017-06-26] MEDS ORDERED: 0.9 % Sodium Chloride 1,000 ML ONE (11:44)
[2017-06-26] MEDS ORDERED: *HR* Atropine Sulfate 1 MG/10 ML SYRINGE ONE (11:44)
--- NOTE | 2017-06-26 11:53 | Cardiology History & Physical ---
Date of Encounter: 06/26/17 Time of Encounter: 12:00 Assessment and Plan (1) STEMI (ST elevation myocardial infarction) Current Visit: Yes Status: Acute Patient presented with acute inferior STEMI. Hx of CAD s/p PCI. Asa, heparin, and brilinta at OSH. Recommend LHC with possible PCI; patient agreeable. On Asa, statin, BB. Check echocardiogram. Further recommendations to follow. Qualifiers: Involved coronary artery: unspecified coronary artery Qualified Code(s): I21.3 - ST elevation (STEMI) myocardial infarction of unspecified site (2) CKD (chronic kidney disease) Current Visit: No Status: Chronic Hx of CKD, hx of nephrectomy d/t renal cell carcinoma. Avoid nephotoxins if able. Follows with Dr. Christie as outpatient. Monitor renal function closely. Qualifiers: Chronic kidney disease stage: stage 3 (moderate) Qualified Code(s): N18.3 - Chronic kidney disease, stage 3 (moderate) (3) PAD (peripheral artery disease) Current Visit: No Status: Chronic Hx of PAD s/p LE bypass. Unclear who patient follows in the outpatient setting. History of Present Illness Chief complaint: Chest pain HPI: Ms. Cormier is a 82 year old female with past medical history diabetes mellitus type 2, CK D stage IV with history of left nephrectomy due to renal carcinoma in 2002, hypertension, CAD, PVD s/p fem-fem bypass, hyperlipidemia, polymyalgia rheumatica, past history nicotine abuse, COPD who presented to [facility] with complaints of non-radiating mid-sternal chest discomfort. Reports symptoms initially started 3-4 days ago but worsened this AM which prompted ED evaluation. Denies exacerbating or alleviating factors. ECG at [place] demonstrated acute inferior STEMI and was taken to [facility]. Past Med Surg Social Fam HX - Past Medical History Attestation: Yes The following information was validated with the patient. Source: patient, old records reviewed Medical history: arthritis, asthma, cancer, COPD, coronary artery disease, diabetes, GERD, hyperlipidemia, hypertension, myocardial infarction, RA, renal disease, TIA, venous stasis, other Psychiatric history: no psych history - Past Surgical History Surgical History: angioplasty/stent, appendectomy, cancer surgery, cholecystectomy, coronary bypass (CABG), herniorrhaphy, hysterectomy, orthopedic , other, GIBSON/BSO, other, vascular surgery, LE bypass, LE stent (s), LE vascular intervention, arthroscopy - Social History Smoking Status: Former smoker Smokeless Tobacco Status: No Alcohol use: none Drug use: none - Family History Mother Living Status: Hx Family Cancer: Yes Father Living Status: Hx Family Cardiac Disorders: Yes Medications and Allergies Aspirin 81 mg PO DAILY 04/08/16 [History] Calcitriol 0.5 mcg PO DAILY 04/08/16 [History] Cholecalciferol (Vitamin D3) [Vitamin D3] 1,000 unit PO DAILY 04/08/16 [History] Furosemide [Lasix] 20 mg PO DAILY 04/08/16 [History] Insulin DETEMIR [Levemir Flextouch] 20 unit SQ QAM 04/08/16 [History] Metoprolol XL (24 HR) Succ [Toprol Xl] 25 mg PO DAILY 04/08/16 [History] NIFEdipine [Nifedipine ER] 60 mg PO DAILY 04/08/16 [History] Losartan [Cozaar] 25 mg PO DAILY tablet 04/09/16 [Rx] Ipratropium/Albuterol Neb [Duoneb] 3 ml IH Q6HR PRN 08/24/16 [History] predniSONE [PredniSONE] 5 mg PO DAILY 08/24/16 [History] Cyclobenzaprine [Flexeril] 5 mg PO TID PRN #20 tablet 03/01/17 [Rx] HYDROcodone/Acet 5/325 mg [[place] 5-325 mg] 1 tab PO Q4H PRN #20 tab 03/01/17 [Rx ] 3 Allergy/AdvReac Type Severity Reaction Status Date / Time lisinopril Allergy Diarrhea Verified 02/23/17 10:32 pioglitazone Allergy See Verified 02/23/17 10:32 Comments All Systems Review: The remainder of the systems were reviewed and are negative - Cardiovascular Cardiovascular: as per HPI Physical Examination Vital Signs, Last 4 Hours Temp Pulse Pulse Resp BP Pulse Ox 06/26/17 11:51 45 06/26/17 11:40 49 16 145/76 96 06/26/17 11:35 46 16 131/127 100 06/26/17 11:00 97.5 F L 50 16 135/90 96
--- NOTE | 2017-06-26 12:12 | Invasive Diagnostic Lab Proc ---
Name: Elsie Cormier Date of Study: 06/26/2017 Date: 1935 Ht: 63.0in Medical Record#: [id number] Age: 82 Wt: 148.00lb Gender: Female BSA: 1.7 Order #: [id number] BMI: 26.22 Physicians Procedure Physician: Dana Candelario MD, FACC Referring MD: Referring MD: Staff Name Position Time In Marly Montesinos RN Monitor 09:59 AM Bautista Finley RN Bracelet And Brooch Maker 09:59 AM Suzi Robbins RT (R) Scrub 09:59 AM Indications Indication STEMI Procedures Performed Procedure CORONARY ARTERY ANGIO S&I PRQ CARD REVASC LA 1 VSL Pre-Procedure Checklist Informed consent is complete signed and on chart. H&P is on chart. ID band is on and ID verified with patient. Patient NPO for procedure The procedure was described for the patient and questions were answered. Blood Pressure: 190/79 ECG is on chart. Rhythm: NSR w/ st elevation Plan of Care Patient will tolerate the procedure without complications. Adequate level of comfort will be maintained. Hemodynamics will remain stable Patient will recover from procedure without complications. Respiratory function will be maintained. Cardiac rhythm will remain stable. Patient temperature will be maintained. Patient and/or family have verbalized understanding of the procedure. Patient Education Chief Complaint/Reason for Test: Cardiac Cath Developmental Category: Geriatric (65+ years) Developmentally Appropriate for Age: Yes Learning Barriers: None Education Needs: Procedure Education Method: Verbal Information Taught: Cardiac Cath Educational Evaluation: Able to repeat information Intravenous Access Time IV Size Location DC'd Fluid/Drip Rate Units RN 09:59 AM 20g 1 1/4" Patent On Arrival Rt Antecubital 09:59 AM 18g 1 1/4" Patent On Arrival Lt Antecubital 0.9 w/ Sodium Bicarbonate 25 ml/hr Bautista Finley RN Allergies pioglitazone lisinopril NKDA NO KNOWN ALLERGIES Vital Signs Time BP (mmHg) HR (bpm) O2 Sat. RR (bpm) LOC 09:53 AM / % 5 = Fully awake and oriented or at pre-proc level 09:53 AM / % 4 = Oriented but drowsy 10:08 AM / % 4 = Oriented but drowsy 10:23 AM / % 4 = Oriented but drowsy 10:38 AM / % 4 = Oriented but drowsy 10:53 AM / % 4 = Oriented but drowsy 09:52 AM 190 / 79 66 100 % 09:57 AM 200 / 85 69 100 % 10:01 AM 198 / 91 67 92 % 10:06 AM 179 / 87 57 92 % 10:11 AM 143 / 73 52 93 % 10:15 AM 139 / 73 52 91 % 10:22 AM 105 / 68 65 93 % 10:26 AM 115 / 65 53 92 % 10:27 AM 103 / 63 86 92 % 10:31 AM 100 / 52 50 92 % 10:36 AM 122 / 67 50 96 % 10:41 AM 138 / 68 50 95 % 10:46 AM 132 / 65 48 95 % 10:51 AM 129 / 63 51 91 % 10:56 AM 130 / 69 51 96 % 11:01 AM 141 / 80 47 97 % 11:06 AM 106 / 55 42 96 % Procedural Medications Time Medication Dose Units Method Given By 09:44 AM Oxygen 2 L/min nasal cannula Bautista Finley RN 09:54 AM Versed 1 mg Intravenous Bautista Finley RN 09:54 AM Fentanyl 25 mcg Intravenous Bautista Finley RN 09:54 AM Lidocaine 2% 18 ml Subcutaneous Dana Candelario MD, [facility] 09:56 AM Lidocaine 2% 10 ml Subcutaneous Dana Candelario MD, [facility] 09:57 AM Versed 1 mg Intravenous Bautista Finley RN 09:57 AM Fentanyl 25 mcg Intravenous Bautista Finley RN 10:02 AM Nitroglycerin 10 mcg/min Intravenous Bautista Finley RN 10:05 AM Lidocaine 2% 20 ml Subcutaneous Dana Candelario MD, FAC 10:16 AM Angiomax 0.75mg/kg bolus: 10 ml Intravenous Bautista Finley RN 10:16 AM Angiomax 1.75mg/kg/hr: 23 ml Intravenous Bautista Finley RN 10:20 AM Nitroglycerin 10 mcg/min Dc'd Bautista Finley RN 10:30 AM Nitroglycerin 200 mcg Intracoronary Dana Candelario MD, [facility] 10:42 AM Versed 1 mg Intravenous Bautista Finley RN 10:42 AM Fentanyl 25 mcg Intravenous Bautista Finley RN 10:50 AM Oxygen 5 L/min nasal cannula Bautista Finley RN 11:04 AM Nitroglycerin 200 mcg Intracoronary Dana Candelario MD, [facility] ASA Classification: CLASS II- Mild systemic disease (i.e. well-controlled diabetes, hypertension, asthma, cigarette smoking) Valentine Score Preprocedure Postprocedure Activity 2- Moves 4 extremities sustained head lift Activity 2- Moves 4 extremities sustained head lift Circulation 2- SBP +/= 20 points of pre-anesthetic level Circulation 2- SBP +/= 20 points of pre-anesthetic level Consciousness 2- Awake and alert oriented x 3 Consciousness 2- Awake and alert oriented x 3 O2 Saturation 2- Able to maintain O2 satruation of 92% on room air O2 Saturation 2- Able to maintain O2 satruation of 92% on room air Respiratory 2- Able to deep breathe and cough well Respiratory 2- Able to deep breathe and cough well Total Score 10 Total Score 10 Contrast Agent: Isovue Diagnostic Contrast: 110 ml Total Contrast: 110 ml Fluoro Dose: 1601 mGy Procedure Log Time Note Enter By 09:39 AM Pt arrived to medical lab assistant 2 at 09:39 scoates 09:45 AM Physician arrived 09:45 scoates 09:45 AM Meet and greet completed scoates 09:46 AM Sign in performed according to hospital policy. scoates 09:47 AM Procedure start 09:47 scoates 09:50 AM CathStat 09:50 AM Case Start 09:50 AM Vitals capture started with the following parameters, Patient=Adult, Interval=5 min, Initial Rhcwevup=871 mmHg, Deflation Rate=5 mmHg, Cuff placed on Right Arm 09:52 AM Patient charges- Angio tray pack, Navilyst 3mm J, Pulse Oximetry and ACIST tubing and transducer scoates 09:52 AM Case Delayed no, inpatient scoates 09:52 AM HR=66 bpm, TCSX=956/79 mmhg, ZoS0=710.0 % 09:52 AM Hair removed from procedure site in procedure lab using clippers. Bilateral groin prepped with Chloraprep by Bautista Finley RN, then patient was draped. Skin intact. scoates 09:52 AM ASA Class CLASS II- Mild systemic disease (i.e. well-controlled diabetes, hypertension, asthma, cigarette smoking) scoates 09:52 AM Time out performed according to hospital policy scoates 09:53 AM Time: 09:44 Oxygen on at 2 L/min per nasal cannula by Bautista Finley RN scoates 09:53 AM Time: 09:53 Patient comfortable and pain free: No pt states that her chest pain is 7/10 scoates 09:53 AM Time: 09:53LOC: 5 = Fully awake and oriented or at pre-proc level scoates 09:53 AM Clinical Presentation: STEMI or equivalent scoates 09:54 AM Pressure channel 1 zero failed. 09:54 AM Pressure channel 1 zero failed. 09:54 AM Time: 09:54 Versed 1 mg Intravenous Given by Bautista Finley RN scoates 09:54 AM Pressure channel 1 zero failed. 09:54 AM Pressure channel 1 zeroed. 09:54 AM Time: 09:54 Fentanyl 25 mcg Intravenous Given by Bautista Finley RN scoates 09:54 AM Time: 09:54 18 ml Lidocaine 2% to right groin Subcutaneous Given by Dana Candelario MD, [facility] scoates 09:56 AM Time: 09:56 10 ml Lidocaine 2% to right groin Subcutaneous Given by Dana Candelario MD, [facility] scoates 09:57 AM Time: 09:57 Versed 1 mg Intravenous Given by Bautista Finley RN scoates 09:57 AM HR=69 bpm, YPTE=519/85 mmhg, IjR7=389.0 %, Comment=sr w/ st elevation 09:57 AM Time: 09:57 Fentanyl 25 mcg Intravenous Given by Bautista Finley RN scoates 09:59 AM Marly Montesinos RN Position: Monitor Time in: 09:59 scoates 09:59 AM Bautista Finley RN Position: Bracelet And Brooch Maker Time in: 09:59 scoates 09:59 AM Suzi Robbins RT (R) Position: Scrub Time in: 09:59 scoates 10:00 AM Unsuccessful access attempt # 1 into the right Femoral artery. Manual pressure applied to achieve hemostasis.. scoates 10:00 AM Unsuccessful access attempt # 2 into the right Femoral artery. Manual pressure applied to achieve hemostasis.. scoates 10:01 AM HR=67 bpm, MAGK=497/91 mmhg, SpO2=92.0 %, Comment=sr w/ st elevation 10:02 AM Time: 10:02 Nitroglycerin 10 mcg/min Intravenous Given by Bautista Finley RN scoates 10:05 AM Time: 10:05 20 ml Lidocaine 2% to left groin Subcutaneous Given by Dana Candelario MD, [facility] scoates 10:05 AM Unsuccessful access attempt # 1 into the left Femoral artery. Manual pressure applied to achieve hemostasis.. scoates 10:06 AM HR=57 bpm, XKDU=464/87 mmhg, SpO2=92.0 %, Comment=sb 10:07 AM Access obtained by percutaneous puncture. 6Fr 11cm Terumo [place] sheath placed in left Femoral artery. [id number] scoates 10:08 AM Time: 09:53LOC: 4 = Oriented but drowsy scoates 10:08 AM Time: 09:53 Patient comfortable and pain free: Yes scoates 10:10 AM This RN called Ashlyn the nurse at [facility] to retrieve all patient labs, information was received verbally via telephone call. scoates 10:11 AM HR=52 bpm, JUHF=000/73 mmhg, SpO2=93.0 % 10:11 AM Recorded Pressure: Ao, HR=52, Condition=Condition 1 (Aorta) Ao 114/70/90 10:11 AM 5Fr FR 4 catheter inserted over the wire DN scoates 10:12 AM RCA angiography performed in multiple views. scoates 10:12 AM 0.035 260cm Navilyst 3mmJ wire [id number] scoates 10:13 AM Wire removed scoates 10:13 AM 5Fr FL 4 catheter inserted over the wire DNC scoates 10:13 AM LCA angiography performed in multiple views. scoates 10:14 AM NIBP STAT measurement started. 10:14 AM Coronary Dominance: right scoates 10:14 AM Lesion found in Proximal RCA. Pre Stenosis: 100 Pre MARCELINO Flow: 0: No Flow/No perfusion scoates 10:15 AM Catheter removed scoates 10:15 AM PCI Status Emergency scoates 10:15 AM HR=52 bpm, NLUK=444/73 mmhg, SpO2=91.0 %, Comment=sb 10:15 AM PCI Indication: Immediate PCI for STEMI scoates 10:15 AM Inflation device was opened. scoates 10:15 AM 6Fr JR 4 [place] Bright-Tip guide catheter was used to cannulate the PCI vessel successfully. reused? No scoates 10:16 AM .014 Prowater 180cm guide wire across target lesion- successful. reused? No scoates 10:16 AM Time: 10:16 Angiomax 0.75mg/kg bolus: 10 ml Intravenous Given by Finley, Bautista RN Zheng pump scoates 10:16 AM Time: 10:16 Angiomax 1.75mg/kg/hr: 23 ml Intravenous Given by Bautista Finley RN Zheng pump scoates 10:18 AM Recorded Pressure: Ao, HR=55, Condition=Condition 1 (Aorta) Ao 113/61/81 10:18 AM 2.0 mm x 12 mm Emerge Monorail balloon across target lesion- successful. reused? No scoates 10:19 AM Recorded Pressure: Ao, HR=46, Condition=Condition 1 (Aorta) Ao 104/51/71 10:20 AM Time: 10:20 Nitroglycerin 10 mcg/min Dc'd Given by Bautista Finley RN scoates 10:20 AM Balloon inflated @ 8 vahid for 20 seconds scoates 10:21 AM Balloon inflated @ 10 vahid for 20 seconds scoates 10:22 AM HR=65 bpm, IBTM=192/68 mmhg, SpO2=93.0 % 10:22 AM Balloon inflated @ 14 vahid for 20 seconds scoates 10:23 AM Time: 10:08 Patient comfortable and pain free: Yes scoates 10:23 AM Time: 10:08LOC: 4 = Oriented but drowsy scoates 10:23 AM Balloon inflated @ 14 vahid for 25 seconds scoates 10:24 AM Balloon inflated @ 14 vahid for 20 seconds scoates 10:24 AM Balloon inflated @ 14 vahid for 20 seconds scoates 10:24 AM Recorded Pressure: Ao, HR=51, Condition=Condition 1 (Aorta) Ao 96/56/74 10:25 AM Balloon inflated @ 14 vahid for 20 seconds scoates 10:25 AM Balloon inflated @ 20 vahid for 20 seconds scoates 10:26 AM HR=53 bpm, XNAQ=691/65 mmhg, SpO2=92.0 %, Comment=sb 10:27 AM NIBP STAT measurement started. 10:27 AM HR=86 bpm, VKDH=604/63 mmhg, SpO2=92.0 % 10:28 AM Balloon catheter removed intact. scoates 10:29 AM .014 Choice Extra Support 182cm guide wire across target lesion- successful. reused? No added as support wire down RCA scoates 10:30 AM Time: 10:30 Nitroglycerin 200 mcg Intracoronary Given by Dana Candelario MD, FACC scoates 10:31 AM Recorded Pressure: Ao, HR=50, Condition=Condition 1 (Aorta) Ao 85/49/64 10:31 AM HR=50 bpm, AMYD=952/52 mmhg, SpO2=92.0 %, Comment=sb 10:32 AM 2.5 mm x 15 mm Emerge Monorail balloon across target lesion- successful. reused? No scoates 10:34 AM Balloon inflated @ 8 vahid for 22 seconds scoates 10:34 AM Balloon inflated @ 8 vahid for 20 seconds scoates 10:36 AM Balloon inflated @ 8 vahid for 20 seconds scoates 10:36 AM Balloon inflated @ 8 vahid for 20 seconds scoates 10:36 AM Balloon inflated @ 8 vahid for 20 seconds scoates 10:36 AM HR=50 bpm, DLOQ=026/67 mmhg, SpO2=96.0 %, Comment=sb 10:36 AM Balloon inflated @ 8 vahid for 15 seconds scoates 10:38 AM Balloon catheter removed intact. scoates 10:38 AM Time: 10:23LOC: 4 = Oriented but drowsy scoates 10:38 AM Time: 10:23 Patient comfortable and pain free: Yes scoates 10:39 AM 2.5mm x 38mm Synergy drug-eluting stent across target lesion- successful Lot #[id number] scoates 10:41 AM HR=50 bpm, YKFZ=940/68 mmhg, SpO2=95.0 %, Comment=sb 10:42 AM stent removed not deployed and intact scoates 10:42 AM Time: 10:42 Versed 1 mg Intravenous Given by Bautista Finley RN scoates 10:42 AM Time: 10:42 Fentanyl 25 mcg Intravenous Given by Bautista Finley RN scoates 10:42 AM Recorded Pressure: Ao, HR=50, Condition=Condition 1 (Aorta) Ao 123/57/81 10:43 AM 6Fr Guidezilla advanced scoates 10:46 AM HR=48 bpm, LBKM=172/65 mmhg, SpO2=95.0 % 10:48 AM 6Fr 3DRC [place] Bright-Tip guide catheter was used to cannulate the PCI vessel successfully. reused? No scoates 10:48 AM all equipment removed intact scoates 10:50 AM Time: 10:50 Oxygen on at 5 L/min per nasal cannula by Bautista Finley RN scoates 10:51 AM .014 Choice Extra Support 182cm guide wire across target lesion- successful. reused? No scoates 10:51 AM guidezilla reinserted scoates 10:51 AM HR=51 bpm, YPKO=384/63 mmhg, SpO2=91.0 %, Comment=sb 10:51 AM 2.5x38 stent resinserted scoates 10:53 AM all equipment removed intact, stent not deployed, stent will not cross scoates 10:53 AM Time: 10:38 Patient comfortable and pain free: Yes scoates 10:53 AM Time: 10:38LOC: 4 = Oriented but drowsy scoates 10:55 AM Recorded Pressure: Ao, HR=52, Condition=Condition 1 (Aorta) Ao 131/61/87 10:56 AM HR=51 bpm, ZGNW=441/69 mmhg, SpO2=96.0 %, Comment=sb 10:56 AM reinserting the prowater scoates 10:58 AM Guide catheter removed intact. scoates 11:00 AM choice Pt wire reinserted scoates 11:00 AM 2.5mm x 28mm Synergy drug-eluting stent across target lesion- successful Lot #[id number] scoates 11:01 AM HR=47 bpm, TDME=882/80 mmhg, SpO2=97.0 %, Comment=sb 11:02 AM choice PT wire removed intact scoates 11:02 AM Stent deployed @ 14 vahid for 30 seconds scoates 11:03 AM Stent balloon reinflated @ 20 vahid for 20 seconds scoates 11:04 AM Stent delivery system removed intact. scoates 11:04 AM Time: 11:04 Nitroglycerin 200 mcg Intracoronary Given by Dana Candelario MD, [facility] scoates 11:06 AM HR=42 bpm, OFUJ=696/55 mmhg, SpO2=96.0 % 11:06 AM Guide wire removed intact. scoates 11:06 AM Guide catheter removed intact. scoates 11:08 AM Bolus angiogram of left Femoral complete: 4 ml/sec for a total of 7 mls scoates 11:08 AM Time: :53LOC: 4 = Oriented but drowsy scoates 11:08 AM Time: 10:53 Patient comfortable and pain free: Yes scoates 11:11 AM Pt is now awake and rates that her pain in her chest is better but it is still a 5 scoates 11:11 AM Procedure completed at 11:11 scoates 11:11 AM Did you address MARCELINO flow and Dominance? Yes scoates 11:13 AM Site status No bleeding/hematoma - Rt Groin as reported by Dana Candelario MD, FACC at 11:13 <3 cm scoates 11:13 AM Site Status: Hematoma - Rt Groin as reported by Dana Candelario MD, FACC at 11:13 Size <3 cm scoates 11:14 AM Sign out completed: Radiation Dose 1601 mGy Fluoro Time: 28 Isovue 370 - 200ml contrast 110 ml given by Dana Candelario MD, FACC. Complications: NoneCardiac Rehab Consult needed: YesConfirmed administered medications: Yes scoates 11:16 AM Isovue 370 - 200ml,2 Bottle(s) used. scoates 11:16 AM Sheath left in place to be pulled on floor/holding area scoates 11:16 AM Estimated Blood Loss: less than 20cc scoates 11:17 AM Post ECG Sinus Bradycardia scoates 11:17 AM Post Blood Pressure 137/101 scoates 11:17 AM Information taught Cardiac Cath and PCI scoates 11:18 AM 11:18 Post Pulses Bilateral DP & PT 1+ scoates 11:18 AM Information taught Cardiac Cath and PCI scoates 11:18 AM Education needs Procedure, Plan of Care, and Responsibilities of Patient in Care scoates 11:18 AM Learning barriers :None scoates 11:18 AM Education Methods Verbal scoates 11:19 AM held manual pressure on rt hematoma for 6 minutes, hematoma is resolved scoates 11:19 AM Site status No bleeding/hematoma - Rt Groin as reported by Suzi Robbins RT (R) at 11:19 scoates 11:19 AM Site status No bleeding/hematoma - Lt Groin as reported by Suzi Robbins RT (R) at 11:19 scoates 11:20 AM Plavix, Effient or Brilinta given Brilinta given at [facility] scoates 11:20 AM Delay to floor No scoates 11:20 AM Patient out of room: 11:20 scoates 11:20 AM Complications: None scoates 11:20 AM Fluoro Time: 28 scoates 11:20 AM Isovue 370 - 200ml contrast 110 ml given by MD Dee Dee. scoates 11:41 AM Report given to Edda CALDERÓN Pt taken to ICU Room #5. 11:20 scoates 11:48 AM Lesion found in Proximal LAD. Pre Stenosis: 40 Pre MARCELINO Flow: scoates 11:48 AM Lesion found in Proximal Circumflex. Pre Stenosis: 30 Pre MARCELINO Flow: scoates 11:48 AM Lesion found in Mid Circumflex. Pre Stenosis: 50 Pre MARCELINO Flow: scoates 11:48 AM Lesion found in Distal Circumflex. Pre Stenosis: 80 Pre MARCELINO Flow: scoates 11:48 AM Lesion found in Ramus. Pre Stenosis: 30 Pre MARCELINO Flow: scoates 11:48 AM Proximal Left Anterior Descending Coronary Artery with 40% stenosis. If graft is supplying this territory, 0 % stenosis. scoates 11:48 AM Circumflex, Obtuse Marginal, Left Posterior Descending, and Left Posterolateral Coronary Arteries with 80 % stenosis. If graft is supplying this area, 0 % stenosis scoates 11:49 AM Right Coronary, Right Posterior Descending Arteries with Right Posterolateral and Acute Marginal branches with 100 % stenosis. If graft is supplying this area, 0 % stenosis scoates 11:49 AM Ramus with 30% stenosis. If graft is supplying this area, 0 % stenosis scoates Complications Complication None None Hemodynamics Pressures Site Systolic/A Wave Diastolic/V Wave Mean AO 114 70 90 AO 113 61 81 AO 104 51 71 AO 96 56 74 AO 85 49 64 AO 123 57 81 AO 131 61 87 Post Procedure Information Blood Pressure: 137/101 mmHg Rhythm: Sinus Bradycardia Post procedural instructions were given Closure Device Time Device Success/Fail 06/26/2017 11:20:00 AM Manual Compression- sheath to be pulled in ICU Site Checks Time Location Status Staff Sheath In? Note 11:13 AM Rt Groin No bleeding/hematoma Dana Candelario MD, FACC <3 cm 11:19 AM Rt Groin No bleeding/hematoma Suzi Robbins RT (R) 11:19 AM Lt Groin No bleeding/hematoma Suzi Robbins RT (R) 11:13 AM Rt Groin Hematoma Dana Candelario MD, FACC <3 cm Pulses Time Site Pre-Procedure Post-Procedure Note 06/26/2017 9:55:00 AM Bilateral DP & PT 1+ 06/26/2017 9:55:00 AM Bilateral radial 1+ 11:18:00 AM Bilateral DP & PT 1+ Updated by Marly Preciado RN on 06/26/2017 12:06:14 PM electronically signed on 06/26/2017 12:06:44 PM with status of Final
[2017-06-26] MEDS ORDERED: Nitroglycerin 0.4 MG TAB.SUBL SL PRN (12:32)
[2017-06-26] MEDS ORDERED: 0.9 % Sodium Chloride 1,000 ML IVC SCH (12:45)
[2017-06-26 17:07] LABS: Hematocrit 32.1 % (35.3-44.9); Hemoglobin 10.9 g/dL (11.5-15.4)
[2017-06-27 04:18] LABS: Basophils % 0.2 %; Eosinophils % 0.5 %; Hemoglobin 10.1 g/dL (11.5-15.4); Immature Granulocytes % 0.9 % (0-4); Lymphocytes # 1.8 K/mcL (0.6-4.6); Lymphocytes % 21.6 %; Mean Corpuscular HGB Conc 32.6 g/dL (31.6-35.5); Mean Corpuscular Hemoglobin 30.5 pg (28.0-33.3); Mean Corpuscular Volume 93.7 fL (83.0-100.0); Mean Platelet Volume 9.6 fL (9.4-12.4); Monocytes # 0.8 K/mcL (0.0-1.3); Monocytes % 9.5 %; Neutrophils # 5.5 K/mcL (1.6-8.9); Platelet Count 220 K/mcL (140-400); Red Blood Count 3.31 M/mcL (3.82-4.97); Red Cell Distribution Width 13.7 % (11.5-14.5); Segmented Neutrophils % 67.3 %
[2017-06-27 04:40] LABS: Calcium 8.8 mg/dL (8.6-10.3); Chol/HDL Ratio 4.5 (0-4.9); Potassium 4.1 mEq/L (3.5-5.1)
[2017-06-27 04:45] LABS: Troponin I 19.26 ng/mL (< 0.04)
[2017-06-27] MEDS ORDERED: Aspirin 81 MG TAB.CHEW PO SCH (09:00)
--- NOTE | 2017-06-27 09:01 | Cardiology Progress Note ---
Date of Encounter: 06/27/17 Time of Encounter: 08:58 Assessment and Plan (1) STEMI (ST elevation myocardial infarction) Current Visit: Yes Status: Acute Patient presented with acute inferior STEMI. Hx of CAD s/p PCI. [facility] yesterday double vessel CAD. Acute NC due to thrombotic occlusion of RCA. Successful PTCA /LISA placement in pRCA. 80% distal LCx. Pt denies chest pain or dyspnea overnight. TTE pending. Left femoral access site large amount of ecchymosis, hematoma noted. Pt reports pain and tenderness. Will ultrasound to r/o pseudo. DAPT (ASA and Plavix) uninterrupted x 1 year. Pt verbalizes understanding. Continue BB and Statin. Vitals stable. 12hr tele AVG HR 71, SR, no significant pauses or arrhythmias noted. Plan to step down to telemetry floor later today. Qualifiers: Involved coronary artery: unspecified coronary artery Qualified Code(s): I21.3 - ST elevation (STEMI) myocardial infarction of unspecified site (2) CAD (coronary artery disease), [place] coronary artery Current Visit: Yes Status: Chronic ASA, Plavix, Statin, BB. Qualifiers: [place] vs. transplanted heart: [place] heart Associated angina: with unspecified angina Qualified Code(s): I25.119 - Atherosclerotic heart disease of [place] coronary artery with unspecified angina pectoris (3) CKD (chronic kidney disease) Current Visit: No Status: Chronic Hx of CKD, hx of nephrectomy d/t renal cell carcinoma. Avoid nephotoxins if able. Follows with Dr. Christie as outpatient. Creatinine 1.37 today, within baseline range. Monitor renal function closely. Qualifiers: Chronic kidney disease stage: stage 3 (moderate) Qualified Code(s): N18.3 - Chronic kidney disease, stage 3 (moderate) (4) HTN (hypertension) Current Visit: Yes Status: Chronic Currently controlled on BB. Qualifiers: Hypertension type: essential hypertension Qualified Code(s): I10 - Essential (primary) hypertension Discussion w patient/family: The assessment and plan as outlined above was discussed with the patient and/or family members who expressed understanding and agreement. All questions were answered. Thank you for involving us in the care of your patient. Please call with any questions. I will discuss all the above with Dr. Mariee and make changes as necessary. Subjective Principal diagnosis: STEMI Interval history: S/P LHC yesterday for inferior STEMI. LHC revealed double vessel CAD. Acute NC due to thrombotic occlusion of RCA. Successful PTCA/LISA to pRCA. 80% distal LCx. TTE pending. Pt denies chest pain or dyspnea overnight. Troponin 19.26. Reports left groin pain and tenderness. Objective Vital Signs, Last 4 Hours Temp Pulse Resp BP Pulse Ox 06/27/17 08:00 88 18 143/85 94 06/27/17 07:37 67 06/27/17 07:18 97.3 F L 06/27/17 07:00 67 18 128/78 96 06/27/17 06:00 65 21 128/67 98 06/27/17 05:00 63 15 149/61 93 Vital Signs Temp Pulse Pulse Resp BP Pulse Ox 06/27/17 08:00 88 18 143/85 94 06/27/17 07:37 67 06/27/17 07:18 97.3 F L 06/27/17 07:00 67 18 128/78 96 06/27/17 06:00 65 21 128/67 98 06/27/17 05:00 63 15 149/61 93 06/27/17 04:00 97.5 F L 60 21 141/85 96 06/27/17 03:00 80 20 154/95 96 06/27/17 02:00 56 18 144/68 95 06/27/17 01:00 63 18 148/91 95 06/27/17 00:21 98.5 F 06/27/17 00:00 56 18 159/61 95 06/26/17 23:46 87 06/26/17 23:00 60 10 161/68 97 06/26/17 22:00 56 12 152/79 96 06/26/17 21:00 56 12 169/69 98 06/26/17 20:30 98 F 06/26/17 20:00 60 16 162/69 99 06/26/17 19:00 56 16 164/76 98 06/26/17 18:04 53 16 177/95 98 06/26/17 16:30 97.9 F 52 16 159/77 96 06/26/17 15:59 54 18 179/80 100 06/26/17 15:30 59 16 147/101 100 06/26/17 15:16 56 16 104/71 95 06/26/17 14:52 53 06/26/17 14:51 54 16 125/84 94 06/26/17 14:35 145/90 06/26/17 14:30 53 18 133/72 94 06/26/17 14:20 56 58 16 143/98 99 06/26/17 13:45 47 45 133/97 06/26/17 13:30 48 42 127/113 06/26/17 13:15 47 16 130/111 93 06/26/17 13:10 44 42 16 143/100 96 06/26/17 13:06 96 06/26/17 13:00 44 16 151/94 95 06/26/17 12:45 46 137/100 06/26/17 12:40 155/94 06/26/17 12:35 48 166/100 06/26/17 12:25 48 48 184/90 06/26/17 11:51 45 06/26/17 11:45 45 47 16 150/78 98 06/26/17 11:40 49 16 145/76 96 06/26/17 11:35 46 16 131/127 100 06/26/17 11:00 97.5 F L 50 16 135/90 96 Intake and Output 06/26/17 06/27/17 06/27/17 23:59 07:59 15:59 Intake Total 260 / 260 Output Total 300 / 300 200 / 200 Balance -40 / -40 -200 / -200 Intake: Oral 260 / 260 Output: Urine 300 / 300 200 / 200 Other: Meal Dinner Percent of Meal Consumed 15% Stool Size Small Small Stool Consistency soft soft Stool Characteristics Normal for Patient Stool Color Brown Brown # Voids 1 # Bowel Movements 1 Weight 72.1 kg Blood Glucose* 136 Patient Weight 06/27/17 23:59 Weight 72.1 kg General: Conversant, No Apparent Distress HEENT: Atraumatic, Normocephaly, Mucus Membranes Moist Neck: No JVD, Normal carotid pulses Cardiac: Reg Rate and Rhythm, Normal S1 and S2, No Murmur Lungs: Normal Breath Sounds, No Wheeze, Rales, Rhonchi Neuro: Alert and responsive, No focal deficits noted Abdomen: Soft, Non-Tender Skin: Other (right femoral access site hematoma noted, large amount of ecchymosis. No active bleeding.) Musculoskeletal: No Chest Wall Tenderness Extremities: No Clubbing, No Cyanosis, No Edema, Normal Pulses Results 06/27/17 03:54 06/27/17 03:54 Lab Results 06/26/17 06/27/17 06/27/17 16:57 03:54 03:54 WBC 8.2 Hgb 10.9 L 10.1 L Hct 32.1 L 31.0 L Plt Count 220 Sodium 136 Potassium 4.1 Chloride 110 H Carbon Dioxide 22 L BUN 23 Creatinine 1.37 H Glucose 132 H Calcium 8.8 Troponin I 19.26 H* Short CBC 06/27/17 06/26/17 Range/Units 03:54 16:57 WBC 8.2 (4.3-11.1) K/mcL Hgb 10.1 L 10.9 L (11.5-15.4) g/dL Hct 31.0 L 32.1 L (35.3-44.9) % Plt Count 220 (140-400) K/mcL Neutrophils # 5.5 (1.6-8.9) K/mcL BMP 06/27/17 Range/Units 03:54 Sodium 136 (136-145) mEq/L Potassium 4.1 (3.5-5.1) mEq/L Chloride 110 H (98-107) mEq/L Carbon Dioxide 22 L (23-29) mEq/L BUN 23 (8-23) mg/dL Creatinine 1.37 H (0.60-1.20) mg/dL Glucose 132 H (70-105) mg/dL Calcium 8.8 (8.6-10.3) mg/dL Cardiac Enzymes 06/27/17 Range/Units 03:54 Troponin I 19.26 H* (< 0.04) ng/mL Active Medications Acetaminophen (Tylenol) 500 mg PO Q6HR PRN PRN Reason: Mild Pain Stop: 12/26/17 12:33 Aspirin (Aspirin) 81 mg PO DAILY [facility]UAD Stop: 12/27/17 09:01 Last Admin: 06/27/17 08:16 Dose: 81 mg Atorvastatin Calcium (Lipitor) 40 mg PO HS [facility]UAD Stop: 12/26/17 21:01 Last Admin: 06/26/17 21:09 Dose: 40 mg Clopidogrel Bisulfate (Plavix) 75 mg PO DAILY [facility]UAD Stop: 12/27/17 09:01 Last Admin: 06/27/17 08:16 Dose: 75 mg Metoprolol Tartrate (Lopressor) 25 mg PO BID [facility]UAD Stop: 12/26/17 21:01 Last Admin: 06/27/17 08:16 Dose: 25 mg Nitroglycerin (Nitroglycerin) 0.4 mg SL Q5MIN PRN PRN Reason: Chest Pain Stop: 12/26/17 12:33 - Imaging and Cardiology Echo: pending Cardiac cath: report reviewed - EKG Interpretation EKG results cardiology: other (12 hr tele AVG HR 71, SR, no significant pauses or arrhythmias noted.) - VTE Reasons for not Prescribing Prophylaxis: Not indicated-Anticoagulated or INR therapeutic Consult Discharge Plan - Plan Referrals: Willis Jang, AUTOMATION CONTROL TECHNICIAN [Primary Care Provider] -
[2017-06-27] MEDS ORDERED: Ipratropium/Albuterol Neb 3 ML IH PRN (09:53)
[2017-06-27] MEDS ORDERED: Nitroglycerin 0.4 MG TAB.SUBL SL PRN (09:53)
[2017-06-27] MEDS ORDERED: Insulin DETEMIR 100 UNIT/ML X5UNITS SQ SCH (09:53)
[2017-06-27] MEDS: Cholecalciferol (D-3) 1,000 UNIT TABLET PO SCH (11:21)
[2017-06-27] MEDS: Insulin DETEMIR 100 UNIT/ML X5UNITS SQ SCH (11:21)
[2017-06-27] MEDS: predniSONE 10 MG TABLET PO SCH (11:21)
--- NOTE | 2017-06-27 14:00 | Electrocardiograph Report ---
[place] [address] Test Date: 2017-06-26 Pat Name: Elsie Cormier Department: 109 Room: [facility] Gender: F Director Of Integrated Marketing: : 1935 Requested By: Dana Candelario Order Number: [id number] Reading MD: Chrissie Lenz Measurements Intervals [place] Rate: 49 P: 50 NH: 155 QRS: -34 QRSD: 93 T: 264 QT: 525 QTc: 496 Interpretive Statements SINUS BRADYCARDIA LEFT AXIS DEVIATION LEFT VENTRICULAR HYPERTROPHY AND ST-T CHANGE Electronically Signed On 06-27-2017 13:59:09 EDT by Chrissie Lenz
--- NOTE | 2017-06-27 14:01 | Electrocardiograph Report ---
[address] [place], [place] [address] Test Date: 2017-06-26 Pat Name: Elsie Cormier Department: 109 Room: [facility] Gender: F Clam Treader: : 1935 Requested By: Dana Candelario Order Number: [id number] Reading MD: Chrissie Lenz Measurements Intervals [place] Rate: 49 P: 47 UT: 153 QRS: -35 QRSD: 94 T: 266 QT: 520 QTc: 490 Interpretive Statements SINUS BRADYCARDIA LEFT AXIS DEVIATION LEFT VENTRICULAR HYPERTROPHY AND ST-T CHANGE CONSIDER ISCHEMIA Electronically Signed On 06-27-2017 13:59:40 EDT by Chrissie Lenz
[2017-06-28] MEDS: predniSONE 10 MG TABLET PO SCH (08:28)
[2017-06-28] MEDS: Cholecalciferol (D-3) 1,000 UNIT TABLET PO SCH (08:28)
[2017-06-28] MEDS: Aspirin 81 MG TAB.CHEW PO SCH (08:28)
[2017-06-28] MEDS: Insulin DETEMIR 100 UNIT/ML X5UNITS SQ SCH (08:29)
[2017-06-28 08:54] LABS: Basophils % 0.2 %; Eosinophils # 0.1 K/mcL (0.0-0.6); Eosinophils % 0.9 %; Hemoglobin 9.8 g/dL (11.5-15.4); Immature Granulocytes % 1.1 % (0-4); Lymphocytes # 1.6 K/mcL (0.6-4.6); Lymphocytes % 20.1 %; Mean Corpuscular HGB Conc 33.8 g/dL (31.6-35.5); Mean Corpuscular Hemoglobin 32.1 pg (28.0-33.3); Mean Corpuscular Volume 95.1 fL (83.0-100.0); Mean Platelet Volume 9.7 fL (9.4-12.4); Monocytes # 0.9 K/mcL (0.0-1.3); Monocytes % 10.6 %; Neutrophils # 5.4 K/mcL (1.6-8.9); Platelet Count 231 K/mcL (140-400); Red Blood Count 3.05 M/mcL (3.82-4.97); Red Cell Distribution Width 13.5 % (11.5-14.5); Segmented Neutrophils % 67.1 %
[2017-06-28] MEDS ORDERED: NIFEdipine XL (24 HR) 60 MG TAB.ER.24 PO SCH (09:00)
[2017-06-28 09:10] LABS: Calcium 9.3 mg/dL (8.6-10.3); Potassium 4.4 mEq/L (3.5-5.1)
--- NOTE | 2017-06-28 12:05 | Cardiology Progress Note ---
Date of Encounter: 06/28/17 Time of Encounter: 12:03 Assessment and Plan (1) STEMI (ST elevation myocardial infarction) Current Visit: Yes Status: Acute Patient presented with acute inferior STEMI. Hx of CAD s/p PCI. [facility] 06/26/17 double vessel CAD. Acute [place] due to thrombotic occlusion of RCA. Successful PTCA /LISA placement in pRCA. 80% distal LCx and distal RCA stenosis noted--not intervened on. Pt denies chest pain or dyspnea overnight. TTE LVEF 60-65%. All LV wall segments appear to function normally. Mild LVDD. Normal RV structure and function. Mild MR. No pulmonary hypertension. Left femoral access site large amount of ecchymosis noted. Pt reports pain and tenderness. Ultrasound yesterday negative for pseudo. DAPT (ASA and Plavix) uninterrupted x 1 year. Pt verbalizes understanding. Continue BB and Statin. Imdur added. Vitals stable. 12hr tele AVG HR 64, SR, sinus arrhythmia. Monitor another 24 hours. If remains stable, possible d/c tomorrow. Qualifiers: Involved coronary artery: unspecified coronary artery Qualified Code(s): I21.3 - ST elevation (STEMI) myocardial infarction of unspecified site (2) CAD (coronary artery disease), [place] coronary artery Current Visit: Yes Status: Chronic ASA, Plavix, Statin, BB. Add Imdur. Qualifiers: [place] vs. transplanted heart: [place] heart Associated angina: with unspecified angina Qualified Code(s): I25.119 - Atherosclerotic heart disease of [place] coronary artery with unspecified angina pectoris (3) CKD (chronic kidney disease) Current Visit: No Status: Chronic Hx of CKD, hx of nephrectomy d/t renal cell carcinoma. Avoid nephotoxins if able. Follows with Dr. Christie as outpatient. Creatinine 1.35 today, within baseline range. Monitor renal function closely. Qualifiers: Chronic kidney disease stage: stage 3 (moderate) Qualified Code(s): N18.3 - Chronic kidney disease, stage 3 (moderate) (4) HTN (hypertension) Current Visit: Yes Status: Chronic Currently controlled on BB. Qualifiers: Hypertension type: essential hypertension Qualified Code(s): I10 - Essential (primary) hypertension Discussion w patient/family: The assessment and plan as outlined above was discussed with the patient and/or family members who expressed understanding and agreement. All questions were answered. Thank you for involving us in the care of your patient. Please call with any questions. I will discuss all the above with Dr. Mariee and make changes as necessary. Subjective Principal diagnosis: STEMI Interval history: S/P LHC 06/26/17 for inferior STEMI. LHC revealed double vessel CAD. Acute ME due to thrombotic occlusion of RCA. Successful PTCA/LISA to pRCA. 80% distal LCx. TTE LVEF 60-65%. All LV wall segments appear to function normally. Mild left ventricular diastolic dysfunction. Normal right ventricular structure and function. Mild mitral regurgitation. No pulmonary hypertension. Pt denies chest pain or dyspnea overnight. US left groin yesterday negative for pseudo. Objective Vital Signs, Last 4 Hours Temp Pulse Resp BP Pulse Ox 06/28/17 11:29 97.7 F 63 16 140/74 97 Vital Signs Temp Pulse Resp BP Pulse Ox 06/28/17 11:29 97.7 F 63 16 140/74 97 06/28/17 07:21 97.8 F 70 16 149/81 96 06/28/17 05:00 97.8 F 66 16 167/74 91 06/28/17 00:36 97.8 F 88 16 163/79 96 06/27/17 20:01 95 06/27/17 20:00 97.6 F 70 16 139/91 95 06/27/17 15:00 61 18 155/79 97 Intake and Output 06/27/17 06/28/17 06/28/17 23:59 07:59 15:59 Intake Total 120 / 120 180 / 180 240 / 240 Output Total 0 / 0 900 / 900 Balance 120 / 120 -720 / -720 240 / 240 Intake: Oral 120 / 120 180 / 180 240 / 240 Output: Urine 0 / 0 900 / 900 Other: Meal Breakfast Percent of Meal Consumed 90% Stool Size Large Stool Consistency soft formed Stool Color Brown # Voids 1 Weight 73 kg Blood Glucose* 230 Patient Weight 06/28/17 23:59 Weight 73 kg General: Conversant, No Apparent Distress HEENT: Atraumatic, Normocephaly, Mucus Membranes Moist Neck: No JVD, Normal carotid pulses Cardiac: Reg Rate and Rhythm, Normal S1 and S2, No Murmur Lungs: Normal Breath Sounds, No Wheeze, Rales, Rhonchi Neuro: Alert and responsive, No focal deficits noted Abdomen: Soft, Non-Tender Skin: Other (left femoral access site large amound of ecchymosis. No active bleeding.) Musculoskeletal: No Chest Wall Tenderness Extremities: No Clubbing, No Cyanosis, No Edema, Normal Pulses Results 06/28/17 08:24 06/28/17 08:24 Lab Results 06/28/17 06/28/17 08:24 08:24 WBC 8.0 Hgb 9.8 L Hct 29.0 L Plt Count 231 Sodium 137 Potassium 4.4 Chloride 109 H Carbon Dioxide 23 BUN 22 Creatinine 1.35 H Glucose 129 H Calcium 9.3 Short CBC 06/28/17 Range/Units 08:24 WBC 8.0 (4.3-11.1) K/mcL Hgb 9.8 L (11.5-15.4) g/dL Hct 29.0 L (35.3-44.9) % Plt Count 231 (140-400) K/mcL Neutrophils # 5.4 (1.6-8.9) K/mcL BMP 06/28/17 Range/Units 08:24 Sodium 137 (136-145) mEq/L Potassium 4.4 (3.5-5.1) mEq/L Chloride 109 H (98-107) mEq/L Carbon Dioxide 23 (23-29) mEq/L BUN 22 (8-23) mg/dL Creatinine 1.35 H (0.60-1.20) mg/dL Glucose 129 H (70-105) mg/dL Calcium 9.3 (8.6-10.3) mg/dL Active Medications Acetaminophen (Tylenol) 500 mg PO Q6H PRN PRN Reason: Mild Pain Stop: 12/27/17 09:54 Last Admin: 06/27/17 15:21 Dose: 500 mg Albuterol/Ipratropium (Duoneb) 3 ml IH Q6H PRN PRN Reason: Shortness Of Breath Stop: 12/27/17 09:54 Aspirin (Aspirin) 81 mg PO DAILY [facility] Stop: 12/27/17 09:01 Last Admin: 06/28/17 08:28 Dose: 81 mg Atorvastatin Calcium (Lipitor) 40 mg PO HS [facility] Stop: 12/26/17 21:01 Last Admin: 06/27/17 20:01 Dose: 40 mg Calcitriol (Rocaltrol) 0.5 mcg PO DAILY [facility] Stop: 12/27/17 09:54 Last Admin: 06/28/17 08:28 Dose: 0.5 mcg Clopidogrel Bisulfate (Plavix) 75 mg PO DAILY [facility] Stop: 12/27/17 09:01 Last Admin: 06/28/17 08:28 Dose: 75 mg Insulin Detemir (Levemir) 20 unit SQ QAM FUAD Stop: 12/27/17 10:46 Last Admin: 06/28/17 08:29 Dose: 20 unit Isosorbide Mononitrate (Imdur) 30 mg PO DAILY [facility] Stop: 12/28/17 10:31 Metoprolol Tartrate (Lopressor) 25 mg PO BID [facility] Stop: 12/26/17 21:01 Last Admin: 06/28/17 08:28 Dose: 25 mg Nifedipine (Procardia Xl) 60 mg PO DAILY [facility] PRN Reason: Protocol Stop: 12/28/17 09:01 Nitroglycerin (Nitroglycerin) 0.4 mg SL Q5MIN PRN PRN Reason: Chest Pain Stop: 12/26/17 12:33 Prednisone (Prednisone) 10 mg PO DAILY [facility] Stop: 12/27/17 10:31 Last Admin: 06/28/17 08:28 Dose: 10 mg Vitamin D (Vitamin D) 1,000 unit PO DAILY [facility] Stop: 12/27/17 09:54 Last Admin: 06/28/17 08:28 Dose: 1,000 unit - Imaging and Cardiology Echo: report reviewed Cardiac cath: report reviewed - EKG Interpretation EKG results cardiology: other (12 hr tele AVG HR 64, sinus arrhythmia noted) - VTE Reasons for not Prescribing Prophylaxis: Not indicated-Anticoagulated or INR therapeutic Consult Discharge Plan - Plan Referrals: Willis Jang ENVIRONMENTAL SOLUTIONS ENGINEER [Primary Care Provider] -
[2017-06-28] MEDS: Isosorbide MONOnitrate (24 HR) 30 MG TAB.ER.24H PO SCH (13:38)
[2017-06-29 05:48] LABS: Basophils % 0.3 %; Eosinophils # 0.1 K/mcL (0.0-0.6); Eosinophils % 1.1 %; Immature Granulocytes % 1.3 % (0-4); Lymphocytes # 1.9 K/mcL (0.6-4.6); Lymphocytes % 23.8 %; Mean Corpuscular HGB Conc 32.1 g/dL (31.6-35.5); Mean Corpuscular Hemoglobin 30.5 pg (28.0-33.3); Mean Corpuscular Volume 94.9 fL (83.0-100.0); Mean Platelet Volume 9.6 fL (9.4-12.4); Monocytes # 0.9 K/mcL (0.0-1.3); Monocytes % 10.6 %; Platelet Count 254 K/mcL (140-400); Red Blood Count 2.95 M/mcL (3.82-4.97); Red Cell Distribution Width 13.5 % (11.5-14.5); Segmented Neutrophils % 62.9 %
[2017-06-29 05:55] LABS: Potassium 4.1 mEq/L (3.5-5.1)
[2017-06-29] MEDS: Isosorbide MONOnitrate (24 HR) 30 MG TAB.ER.24H PO SCH (07:48)
[2017-06-29] MEDS: Cholecalciferol (D-3) 1,000 UNIT TABLET PO SCH (07:48)
[2017-06-29] MEDS: Aspirin 81 MG TAB.CHEW PO SCH (07:48)
[2017-06-29] MEDS: predniSONE 10 MG TABLET PO SCH (07:48)
[2017-06-29] MEDS: Insulin DETEMIR 100 UNIT/ML X5UNITS SQ SCH (07:50)
[2017-06-29 11:41] LABS: Basophils % 0.1 %; Eosinophils % 0.3 %; Hematocrit 26.7 % (35.3-44.9); Immature Granulocytes % 1.3 % (0-4); Lymphocytes # 0.8 K/mcL (0.6-4.6); Lymphocytes % 9.6 %; Mean Corpuscular HGB Conc 33.7 g/dL (31.6-35.5); Mean Corpuscular Hemoglobin 32.7 pg (28.0-33.3); Mean Corpuscular Volume 97.1 fL (83.0-100.0); Mean Platelet Volume 9.6 fL (9.4-12.4); Monocytes # 0.4 K/mcL (0.0-1.3); Monocytes % 4.4 %; Neutrophils # 7.4 K/mcL (1.6-8.9); Platelet Count 242 K/mcL (140-400); Red Blood Count 2.75 M/mcL (3.82-4.97); Red Cell Distribution Width 13.6 % (11.5-14.5); Segmented Neutrophils % 84.3 %
[2017-06-29 11:51] VITALS: BP 136/75
--- NOTE | 2017-06-29 12:26 | Discharge Summary ---
Orders not resulted at time of discharge: Pending orders 06/27/17 06:00 ECG 12 lead ECG [ECG] AM 0600 Date of Encounter: 06/29/17 Time of Encounter: 12:22 - Discharge Diagnosis (1) STEMI (ST elevation myocardial infarction) Priority: Primary Status: Acute Qualifiers: Involved coronary artery: right coronary artery Qualified Code(s): I21.11 - ST elevation (STEMI) myocardial infarction involving right coronary artery (2) CAD (coronary artery disease), [place] coronary artery Priority: Primary Status: Chronic Qualifiers: [place] vs. transplanted heart: [place] heart Associated angina: with unspecified angina Qualified Code(s): I25.119 - Atherosclerotic heart disease of [place] coronary artery with unspecified angina pectoris (3) CKD (chronic kidney disease) Priority: Secondary Status: Chronic Qualifiers: Chronic kidney disease stage: stage 3 (moderate) Qualified Code(s): N18.3 - Chronic kidney disease, stage 3 (moderate) (4) HTN (hypertension) Priority: Secondary Status: Chronic Qualifiers: Hypertension type: essential hypertension Qualified Code(s): I10 - Essential (primary) hypertension - Hospital Course Hospital course: Ms. Cormier is a 82 year old female that presented with acute inferior STEMI 06/26, also with hx of DM, CKD III, HTN, Hx of CAD s/p PCI. [facility] 06/26/17 double vessel CAD. Acute [place] due to thrombotic occlusion of RCA. Successful PTCA /LISA placement in pRCA. 80% distal LCx and distal RCA stenosis noted--not intervened on. Pt denies chest pain or dyspnea overnight. TTE LVEF 60-65%. All LV wall segments appear to function normally. Mild LVDD. Normal RV structure and function. Mild MR. No pulmonary hypertension. Left femoral access site large amount of ecchymosis noted. Pt reports pain and tenderness. Ultrasound negative for pseudo. DAPT (ASA and Plavix) uninterrupted x 1 year. Pt verbalizes understanding. Continue BB, statin, imdur. Vitals stable. 12hr tele AVG HR 64, SR, sinus arrhythmia. HGB was 10.9 on admission, downtrended to 9.0 this AM, thought to be secondary to groin hematoma/ ecchymosis. Denies active bleeding. HGB rechecked at 1200, stable at 9.0. Hx of CKD, hx of nephrectomy d/t renal cell carcinoma. Avoid nephotoxins, home Lasix stopped for now. Euvolemic on exam. Follows with Dr. Christie as outpatient. Creatinine 1.35 yesterday, 1.50 today, still within baseline range. Check outpt CBC and BMP In 1 week. Restrictions discussed. Will coordinate outpt follow-up in 1 week. Cardiac rehab ordered. D/C home in stable condition. - Time Spent with Patient Total time spent providing and/or coordinating discharge services: Less than 30 minutes - Discharge Medications Prescriptions: Nitroglycerin 0.4 mg SL Q5MIN PRN #30 tab.subl PRN Reason: Chest Pain Aspirin 81 mg PO DAILY #30 tab.chew Atorvastatin [Lipitor] 40 mg PO HS #30 tablet Clopidogrel [Plavix] 75 mg PO DAILY #30 tablet Isosorbide MONOnitrate (24 HR) [Imdur] 30 mg PO DAILY #30 tab.er.24h Metoprolol [Lopressor] 25 mg PO BID #60 tablet Home Medications: Calcitriol 0.5 mcg PO DAILY 04/08/16 [History] Cholecalciferol (Vitamin D3) [Vitamin D3] 1,000 unit PO DAILY 04/08/16 [History] Insulin DETEMIR [Levemir Flextouch] 20 unit SQ QAM 04/08/16 [History] Metoprolol XL (24 HR) Succ [Toprol Xl] 25 mg PO DAILY 04/08/16 [History] Ipratropium/Albuterol Neb [Duoneb] 3 ml IH Q6HR PRN 08/24/16 [History] predniSONE [PredniSONE] 10 mg PO DAILY 06/26/17 [History] Aspirin 81 mg PO DAILY #30 tab.chew 06/29/17 [Rx] Atorvastatin [Lipitor] 40 mg PO HS #30 tablet 06/29/17 [Rx] Clopidogrel [Plavix] 75 mg PO DAILY #30 tablet 06/29/17 [Rx] Isosorbide MONOnitrate (24 HR) [Imdur] 30 mg PO DAILY #30 tab.er.24h 06/29/17 [ Rx] Metoprolol [Lopressor] 25 mg PO BID #60 tablet 06/29/17 [Rx] Nitroglycerin 0.4 mg SL Q5MIN PRN #30 tab.subl 06/29/17 [Rx] Allergies/Adverse Reactions: 3 Allergy/AdvReac Type Severity Reaction Status Date / Time lisinopril Allergy Diarrhea Verified 02/23/17 10:32 pioglitazone Allergy See Verified 02/23/17 10:32 Comments Date of admission: 06/26/17 11:39 Primary care physician: Willis Jang CNP Consults: 06/26/17 12:34 Consult to Cardiac Rehabilitation-Phase1 [CONS] Routine Comment: Reason for Consult: AMI Call Completed: Yes Consult to Nurse Navigator [CONS] Routine Comment: Discharging clinician: Epi Maravilla Anticipated date of discharge: 06/29/17 Physical Examination Vital Signs, Last 4 Hours Temp Pulse Resp BP Pulse Ox 06/29/17 11:48 97.8 F 63 16 136/75 96 Vital Signs Temp Pulse Resp BP Pulse Ox 06/29/17 11:48 97.8 F 63 16 136/75 96 06/29/17 07:32 97.6 F 65 16 148/76 95 06/29/17 05:00 97.9 F 65 16 144/75 89 06/28/17 19:00 97.8 F 63 16 122/65 92 06/28/17 15:14 97.6 F 76 16 143/75 96 Intake and Output 06/28/17 06/29/17 06/29/17 23:59 07:59 15:59 Intake Total 120 / 120 0 / 0 300 / 300 Output Total 500 / 500 300 / 300 Balance -380 / -380 -300 / -300 300 / 300 Intake: Oral 120 / 120 0 / 0 300 / 300 Output: Urine 500 / 500 300 / 300 Other: Meal Breakfast Percent of Meal Consumed 50% # Voids 2 Weight 73.1 kg Blood Glucose* 168 123 250 Patient Weight 06/29/17 23:59 Weight 73.1 kg General: Conversant, No Apparent Distress HEENT: Atraumatic, Normocephaly, Mucus Membranes Moist Neck: No JVD, Normal carotid pulses Cardiac: Reg Rate and Rhythm, Normal S1 and S2, No Murmur Lungs: Normal Breath Sounds, No Wheeze, Rales, Rhonchi Neuro: Alert and responsive, No focal deficits noted Abdomen: Soft, Non-Tender Skin: Other (right femoral access site large amount of ecchymosis, no active bleeding.) Musculoskeletal: No Chest Wall Tenderness Extremities: No Clubbing, No Cyanosis, No Edema, Normal Pulses - Patient Status Disposition: Home, Self-Care Condition: Fair Functional capacity at discharge: independent ambulation Overall status at discharge: patient is progressing back to baseline - Discharge Instructions Follow Up With: Willsi Jang CNP [Primary Care Provider] - Additional Instructions: RISK FACTORS: STOP SMOKING: If you smoke, STOP. Smoking or tobacco use significantly increases your risk of heart disease because nicotine causes the arteries to narrow or constrict. It also causes fats to stick to the artery. Your chances of having a heart attack are greatly increased if you continue to smoke. For more information, call the education line for smoking cessation [id number] EAT A LOW FAT/CHOLESTEROL/SODIUM DIET: This diet may help reduce your chances of having a heart attack. LIFTING: Avoid lifting anything more than 10 pounds for 5-7 days Prior to straining, laughing, sneezing and/or coughing, apply manual pressure directly over insertion site. ACTIVITY: You may walk or climb stairs as tolerated You can resume sexual activity as tolerated In general, you are encouraged to engage in a minimum of 30 minutes or more of moderate intensity physical activity, such as brisk walking, daily or at least 3 -4 times weekly BATHING Do not submerge the site into water (bath tub, hot tub, swimming pool) for 1 week. This can be a source for infection into the blood stream. You may shower after 24 hours SITE CARE: After 24 hours, you may remove the dressing and leave the site open to air. Keep the site clean and dry. Clean gently and pat dry. You can expect bruising and tenderness that gradually resolve within a week or two. Return to work as instructed per your physician Resume driving as instructed per physician Keep all scheduled follow up appointments Resume medications as instructed IMPORTANT: If prescribed a Platelet Aggregation Inhibitor such as, Plavix, Brilinta or Effient: Duration of therapy is minimum one year These medications are often used in combination with Aspirin in prevention of future heart attacks Never discontinue unless consult with your Software Release Engineer STROKE (CVA) Risk factors for a stroke are: Age, cigarette smoking, diabetes, excessive alcohol consumption, family history, high blood pressure, overweight, physical inactivity, prior stroke, heart attack, diagnosis of carotid artery stenosis or other artery disease. Warning signs: Sudden numbness or weakness of the face, arm or leg; especially on one side of the body, sudden confusion, trouble speaking or understanding, sudden trouble seeing in one or both eyes, sudden trouble walking, dizziness, loss of balance or coordination, sudden severe headache with no cause. Call 911 or go to the Emergency Room. CONGESTIVE HEART FAILURE: If you have been diagnosed with Congestive Heart Failure (CHF) and your symptoms return, make an appointment with your physician Weigh yourself daily. Notify your physician if you have a weight gain of two or more pounds in one day or five or more pounds in one week. If you experience any difficulty breathing, please call 911 BLEEDING: Although the risk of bleeding is minimal, it can happen. If you have any bleeding from the site, apply firm pressure above the puncture site for 10-15 minutes. If the bleeding does not stop, continue manual pressure and call 911 Contact your physician if: You develop a fever greater than 101 degrees Fahrenheit Your site becomes reddened or has any drainage You have an increase in pain or burning at the site or if a large knot forms at the site. If you experience chest pain, shortness of breath, dizziness, or extreme tiredness, stop the activity and rest. Please notify your physicians office if you experience any of these symptoms and they are not relieved by rest please call 911! - Diet and Activity Activity: increase activity as tolerated Diet: low fat, low cholesterol - VTE Reasons for not Prescribing Prophylaxis: Not indicated-Anticoagulated or INR therapeutic
== END 2017-06-29 13:49 | disposition home or self-care (01) | DRG 247 ==
LOC: ICNU 11:39 → 2NENU 06-27 18:22
PROVIDERS: ADMIT Internal Medicine Interventional Cardiology; ATTEND Internal Medicine Interventional Cardiology